=== PATIENT | male | born 1970 | race Caucasian/White ===

== ENCOUNTER 2018-06-22 12:14 | Emergency (ER) | payer MEDICARE, SELFPAY ==
[2018-06-22 12:21] VITALS: BP 132/84; PULSE 99; RESP 20; TEMP 37.3; O2SAT 97
--- NOTE | 2018-06-22 12:23 | NUR.NOTE ---
last night 1899 pt stepped into a hole anciently and rotated his ankle resulting in 10 out of 10 pain since the incident. pt has a fused ankle with several screws from a fall off a roof in 1999 pt states that he had had 4 or 5 operation on his ankle
--- NOTE | 2018-06-22 12:39 | ED.GENADUL_ITS ---
Discharge Plan Disposition Patient Disposition: HOME Condition: Stable Discharge Details Chief Complaint: Orthopedic Clinical Impression: Ankle pain Primary Care Provider: Sebastian Casey ED Provider: Siria Steel Discharge Instructions Instructions: Ankle Sprain (ED), Ankle Stirrup Splint (ED) Additional Instructions: Please return immediately to the emergency department if you develop any new or worsening symptoms or if you become otherwise concerned. It is extremely important that you make an appointment to be seen within the next 1-2 weeks by your primary care doctor in follow-up for this visit. Referrals: Sebastian Casey MD [Primary Care Provider] - Discharge Data Discharge Date/Time-TO BE ENTERED AT DEPARTURE: 06/22/18 14:34 Medical Decision Making James Michael is a 47-year-old man with history of arthritis, COPD, status post surgery to right ankle presenting to the emergency department with right ankle pain, after inverting his ankle during a mechanical fall yesterday. Exam with b/l malleoli and heel TTP of right RLE without edema or overlying skin changes. Exam/hx not c/w [place], vascular emergency, tib/fib fx. Concern for sprain vs fx of ankle, contusion vs fx of heel. Plan for ibuprofen, xray. Xray foot/ankle okay. No indication for admission/further eval at this time. Pt reports he has crutches at home and does not want crutches. Plan for ankle splint. I had a lengthy discussion with the Pt re: RTED precautions and importance of outpt f/u with PCP. Pt verbalizes understanding. Medical Records Medical records reviewed: Yes I reviewed the patient's medical records. Imaging Data Radiologic Study: Attestation: I personally reviewed and interpreted this imaging study as follows: Radiologist's impression: RIGHT ANKLE: Three views. Comparison 08/08/17. There are post surgical changes of an ankle arthrodesis. The orthopedic hardware appears stable compared to prior examinations. No acute fracture or dislocation is seen. No radiopaque foreign bodies are seen in the soft tissues. IMPRESSION: No acute fracture or dislocation in the right ankle. RIGHT FOOT: Three views. No acute fracture or dislocation is seen. Post surgical changes are seen in the right ankle which appear stable. The soft tissues are unremarkable. IMPRESSION: No acute abnormality. HPI General Mode of arrival: ambulatory . Date/Time Provider Initiated Documentation: 06/22/18 12:38 . Limitations to Documentation: no limitations . Information obtained by: patient, RN notes reviewed and old records reviewed . HPI Narrative: James Michael is a 47-year-old man with history of arthritis, COPD, status post surgery to right ankle presenting to the emergency department with right ankle pain. Patient reports that he was walking in the dark yesterday, and stepped into a shallow pothole in his driveway. He did not see the pothole, and he inverted his right ankle and fell. He reports that he has had right ankle pain since that time. He did not hit his head, did not lose consciousness, and there were no other injuries. He states that fall was mechanical, no preceding symptoms. Patient now complaining of pain to both sides of his right ankle and also some pain to his heel. He denies any pain in the lower leg or knee. Has been bearing weight since the fall but with pain. No numbness/tingling, no weakness. Denies other pain. Related Data Allergies Allergy/AdvReac Type Severity Reaction Status Date / Time cyclobenzaprine AdvReac Mild nausea Unverified 01/12/18 13:19 [Cyclobenzaprine] ibuprofen AdvReac Mild nausea Unverified 01/12/18 13:19 naproxen AdvReac Mild Nausea Unverified 01/12/18 13:19 General Stated Complaint: Orthopedic BULL: 3 Review of Systems Review of Systems Constitutional: denies fevers Eyes: denies eye pain ENT: denies facial pain, dental pain, sore throat Cardiovascular: denies chest pain, edema Respiratory: denies SOB, cough GI: denies abdominal pain, vomiting, diarrhea : denies flank pain MSK: denies back pain, neck pain, myalgias, reports right ankle pain Skin: denies rash Neuro: denies headaches, lightheadedness, weakness PFSH Arthritis Attention deficit hyperactivity disorder Chronic obstructive lung disease Tobacco dependence, continuous Surgical History Appendectomy Endoscopic Carpal Tunnel release Repair of inguinal hernia Family History Mother No problems noted. Father Personal history of malignant neoplasm Social History Smoking/Tobacco Use Status: Current-Occasional Exam Narrative Exam Narrative: Constitutional: well and [id number], pleasant, conversing normally HENT: head atraumatic, normocephalic normal inspection, mucous membranes moist Eyes: conjunctiva normal, sclera normal, pupils 3mm b/l Neck: no stridor, normal ROM, trachea midline Chest: normal inspection Resp: normal work of breathing, LCTAB Cardio: normal rate, normal rhythm, no murmur appreciated Skin: warm, dry, normal color, no rash Neuro: alert, not altered, grossly non-focal, normal tone Ext: no edema, TTP b/l malleoli right ankle, no edema, no overlying skin changes, TTP of right heel, no other TTP of right foot, no prox fib/tib TTP, Normal exam of LLE. DP pulses intact and symmetric. Psych: normal mood, normal affect, normal behavior Course Vital Signs Temperature 37.3 C 06/22/18 12:21 Pulse 99 H 06/22/18 12:21 Respiratory Rate 20 06/22/18 12:21 Blood Pressure 132/84 06/22/18 12:21 Pulse Oximetry 97 06/22/18 12:21 Temperature 37.3 C 06/22/18 12:21 Temperature Source Skin 06/22/18 12:21 Pulse 99 H 06/22/18 12:21 Respiratory Rate 20 06/22/18 12:21 Respiratory Effort 06/22/18 12:28 Blood Pressure 132/84 06/22/18 12:21 Blood Pressure Position Supine 06/22/18 12:21 Pulse Oximetry 97 06/22/18 12:21 Oxygen Delivery Method Room Air 06/22/18 12:21 Oxygen Flow Rate 0 06/22/18 12:21 Pain Level 10 06/22/18 12:21
--- NOTE | 2018-06-22 13:04 | DI.RAD_ITS ---
SYMPTOMS/DIAGNOSIS: TRAUMA, INVERSION, ZANE MALLEOLAR PAIN, HEEL PAIN RIGHT ANKLE: Three views. Comparison 08/08/17. There are post surgical changes of an ankle arthrodesis. The orthopedic hardware appears stable compared to prior examinations. No acute fracture or dislocation is seen. No radiopaque foreign bodies are seen in the soft tissues. IMPRESSION: No acute fracture or dislocation in the right ankle. RIGHT FOOT: Three views. No acute fracture or dislocation is seen. Post surgical changes are seen in the right ankle which appear stable. The soft tissues are unremarkable. IMPRESSION: No acute abnormality.
[2018-06-22 14:25] VITALS: BP 132/84; PULSE 99; RESP 20; TEMP 37.3; O2SAT 97
[2018-06-22] MEDS: Acetaminophen 500 MG TAB 1000 MG PO (14:25)
== END 2018-06-22 14:34 | disposition home or self-care (01) ==
PROVIDERS: Emergency Provider Student in an Organized Health Care Education/Training Program; PCP General Practice
DX: M25.571 Pain in right ankle and joints of right foot (principal); W17.2XXA Fall into hole, initial encounter; X50.9XXA Other and unspecified overexertion or strenuous movements or postures, initial encounter; Z98.1 Arthrodesis status; J44.9 Chronic obstructive pulmonary disease, unspecified; F17.210 Nicotine dependence, cigarettes, uncomplicated
CPT/HCPCS: 29515; 99284; 73610; 73630; 99285; L4350

== ENCOUNTER → 2018-07-27 10:59 | Outpatient (BNVA) | payer MEDICARE, SELFPAY | PROVIDERS: PCP General Practice; Referring Provider General Practice; Visit Provider Orthopaedic Surgery | DX: S90.01XA Contusion of right ankle, initial encounter (principal); W18.42XA Slipping, tripping and stumbling without falling due to stepping into hole or opening, initial encounter | CPT/HCPCS: 99214; L1902 ==

== ENCOUNTER 2018-09-21 11:32 | Emergency (ER) | payer MEDICARE, SELFPAY ==
[2018-09-21 11:36] VITALS: BP 117/75; PULSE 85; RESP 16; TEMP 36.4; O2SAT 95
--- NOTE | 2018-09-21 11:44 | ED.GENADUL_ITS ---
Discharge Plan Disposition Patient Disposition: HOME Condition: Good Discharge Details Chief Complaint: Nk/Back Pain Clinical Impression: Acute lumbar back pain, DJD (degenerative joint disease), lumbosacral Reason For Visit: low back pain Primary Care Provider: Sebastian Casey ED Provider: Giuseppe Nagel [place] Meds and New Rx's Prescriptions: New lidocaine 5 % adhesive patch,medicated 2 patch TP DAILY Qty: 15 RF: 0 methocarbamol 500 mg tablet 1,000 mg PO TID Qty: 20 RF: 0 nabumetone 500 mg tablet 500 mg PO BID Qty: 14 RF: 0 Discharge Instructions Additional Instructions: Continue to use heat and gentle stretching. Medications as directed. Lidoderm patches go on for 12 hours and off for 12 hours. Follow-up with primary care next week if not doing better. Return to ED for worsening back pain, abdominal pain, bladder or bowel dysfunction, weakness, numbness. Referrals: Sebastian Casey MD [Primary Care Provider] - Discharge Data Discharge Date/Time-TO BE ENTERED AT DEPARTURE: 09/21/18 14:26 Medical Decision Making Patient presenting with severe low back pain. There is no injury. There is no fever. He denies IV drug abuse. He is neurologically intact. He has 5 out of 5 strength in the lower extremities. He has no sensory deficit. He has no bladder or bowel dysfunction. DTRs are 1+. He is very tender along the spine unclear if paraspinal or spinal. He does not need emergent MRI but will get CT scan to evaluate for bony pathology. He does not have any true allergies to medications just nausea. He will be given Toradol, Robaxin, Lidoderm patch. CT scan was reviewed with radiologist. There is nothing acute. Degenerative change and evidence of vacuum changes at the level of L4-L5 disc space. Patient continues to have pain but it is improved. He will be discharged home with pr escription for Lidoderm patch, Robaxin, and nabumetone. Follow-up with his primary care next week. Return to the emergency department if he develops any neurologic symptomatology, bladder or bowel dysfunction, increasing pain. Medical Records Medical records reviewed: Yes I reviewed the patient's medical records. HPI General Mode of arrival: ambulatory . Date/Time Provider Initiated Documentation: 09/21/18 11:42 . Limitations to Documentation: no limitations . Information obtained by: patient . HPI Narrative: Patient presents to ED with complaint of sharp, severe low back pain radiating down both legs. He states that the pain is radiating down the front and back, all of his legs. He has no numbness, weakness, bladder or bowel problems. He denies upper back pain. He denies chest pain or shortness of breath. He denies fevers or chills. He denies IV drug use. No history of immunosuppression. He denies back problems but chart states low back pain. He has tried heat and Tylenol without relief. Hurts more to ambulate, bend, twist. No known injury. Related Data Home Medications Medication Instructions Recorded Confirmed lidocaine 2 patch TP DAILY #15 each 09/21/18 methocarbamol 1,000 mg PO TID #20 tab 09/21/18 nabumetone 500 mg PO BID #14 tab 09/21/18 Previous Rx's Medication Instructions Recorded lidocaine 2 patch TP DAILY #15 each 09/21/18 methocarbamol 1,000 mg PO TID #20 tab 09/21/18 nabumetone 500 mg PO BID #14 tab 09/21/18 Allergies Allergy/AdvReac Type Severity Reaction Status Date / Time cyclobenzaprine AdvReac Mild nausea Unverified 09/21/18 11:40 [Cyclobenzaprine] ibuprofen AdvReac Mild nausea Unverified 09/21/18 11:40 naproxen AdvReac Mild Nausea Unverified 09/21/18 11:40 General Stated Complaint: Nk/Back Pain BULL: 3 Review of Systems Constitutional Denies chills, Denies fever(s), Denies headache(s) and Denies weakness ENT Denies headache(s) and Denies neck pain Cardiovascular Denies chest pain, Denies syncope, Denies pedal edema and Denies dyspnea Respiratory Denies cough and Denies dyspnea Gastrointestinal Denies abdominal pain, Denies diarrhea, Denies nausea and Denies vomiting Genitourinary Denies genital pain, Denies dysuria, Denies flank pain, Denies urinary hesitancy and Denies urinary incontinence Musculoskeletal Reports back pain, Reports limited range of motion, Denies muscle weakness, Denies neck pain, Denies numbness and Denies tingling Integumentary/Breasts Denies rash Neurologic Denies burning sensations, Denies syncope, Denies headache(s), Denies focal weakness, Denies numbness, Denies radicular pain, Denies sensory deficit, Denies tingling, Denies paresthesias and Denies weakness PFSH Medical History Arthritis (Chronic) Attention deficit hyperactivity disorder (Chronic) Chronic obstructive lung disease (Chronic) Tobacco dependence, continuous (Chronic) Surgical History H/O ankle fusion (Chronic) Appendectomy (Inactive) Endoscopic Carpal Tunnel release (Inactive) Repair of inguinal hernia (Inactive) Family History Mother No problems noted. Father Personal history of malignant neoplasm Social History household members: none housing: apartment lives independently: Yes number of children: 1 current occupational status: disabled what type of physical activity do you participate in: bicycling and additional details: rides bike in the summer. Smoking and Tabacco status: Current-Occasional alcohol intake: current alcohol intake frequency: holidays/special occasions only substance use type: does not use Exam Const General: cooperative, uncomfortable and no acute distress Orientation: alert and oriented x3 HENOR Head: normocephalic and atraumatic Neck Neck: normal visual inspection, full ROM and supple Back/Spine/Pelvis Cervical Spine: cervical ROM normal and No pain with cervical ROM Thoracic/Lumbar Spine: thoracic and lumbar spine normal to inspection, pain with thoraco-lumbar ROM, thoraco-lumbar ROM limited, No thoracic spinal tenderness and lumbar spinal tenderness Skin Rashes: no rashes Neuro General: alert, oriented x3, no focal motor deficits and CN's II-XI intact bilaterally Cognition: normal cognition Speech: speech normal Gait: other (limps due to pain) Sensory Exam: no sensory deficits noted DTR's: Rt Patellar: 1+, Lt Patellar: 1+, Rt Ankle: 1+ and Lt Ankle: 1+ Extrem General: full ROM, no pedal edema and no calf tenderness Course Vital Signs Temperature 97.5 F L 09/21/18 11:36 Pulse 85 09/21/18 11:36 Respiratory Rate 16 09/21/18 11:36 Blood Pressure 117/75 09/21/18 11:36 Pulse Oximetry 95 09/21/18 11:36 Temperature 97.5 F L 09/21/18 11:36 Temperature Source Temporal Artery Scan 09/21/18 11:36 Pulse 85 09/21/18 11:36 Respiratory Rate 16 09/21/18 11:36 Respiratory Effort 09/21/18 11:42 Blood Pressure 117/75 09/21/18 11:36 Pulse Oximetry 95 09/21/18 11:36 Oxygen Delivery Method Room Air 09/21/18 11:36 Oxygen Flow Rate 0 09/21/18 11:36 Pain Level 10 09/21/18 11:36
--- NOTE | 2018-09-21 11:58 | DI.CT_ITS ---
SYMPTOMS/DIAGNOSIS: SEVERE LOW BACK PAIN X [address]: The study was conducted according to the usual protocol without contrast enhancement. A narrowed vacuum disc is demonstrated at L4-5 and L3-4. There is some endplate sclerosis and small localized herniations of disc material into the superior endplate of L4 and inferior endplate of L4 is demonstrated. There are apparent disc herniations at both these levels, the findings most prominent at L4-5. In addition, there are endplate declivities involving the superior endplate of L1 and L2, also consistent with small herniations. There is moderately severe facet joint DJD. The pedicles, spinous and transverse processes are well maintained. The examination is extended through the 1st sacral ala, which appears unremarkable. SUMMARY: Findings consistent with DJD and degenerative disc disease with probable disc protrusions at L4-5 and L3-4. When clinically appropriate, further assessment with an MRI is suggested.
[2018-09-21] MEDS: Ketorolac 60 MG/2 ML VIAL IM (12:34)
[2018-09-21] MEDS: Methocarbamol 500 MG TAB 1000 MG PO (12:34)
[2018-09-21] MEDS: Lidocaine 5% Patch 2 PATCH TP (12:34)
[2018-09-21 14:14] VITALS: BP 117/75; PULSE 85; RESP 16; TEMP 36.4; O2SAT 95
== END 2018-09-21 14:26 | disposition home or self-care (01) ==
PROVIDERS: Emergency Provider Emergency Medicine; PCP General Practice
DX: M54.5 Low back pain (principal); M51.87 Other intervertebral disc disorders, lumbosacral region; J44.9 Chronic obstructive pulmonary disease, unspecified; F17.210 Nicotine dependence, cigarettes, uncomplicated
CPT/HCPCS: 96372; 99284; 72131; 99283; J1885

== ENCOUNTER 2019-01-15 12:02 | Emergency (ER) | payer MEDICARE, SELFPAY ==
[2019-01-15] VITALS (43 sets, daily range): BP systolic 119–143; BP diastolic 69–88; PULSE 49–92; RESP 4–24; TEMP 36.8; O2SAT 89–98
[2019-01-15] MEDS: Dexamethasone 10 MG/ML VIAL (12:00)
[2019-01-15] MEDS: EPINEPHrine 0.3 MG KIT IM (12:09)
[2019-01-15] MEDS: EPINEPHrine for Inhalation 0.5 ML VIAL ×3 (12:10→12:24)
[2019-01-15] MEDS: Ondansetron 4 MG/2 ML VIAL (12:11)
[2019-01-15 12:13] LABS: Abs Immature Grans 0.01 k/cumm (0.0-0.09); Absolute Basophil Count 0.05 k/cumm (0.0-0.2); Absolute Eosinophil Count 0.36 k/cumm (0.0-0.7); Absolute Lymphocyte Count 3.24 k/cumm (1.2-3.4); Absolute Monocyte Count 0.74 k/cumm (0.11-0.7); Absolute Neutrophil Count 3.36 k/cumm (1.2-6.7); Basophils % 0.6; Eosinophils % 4.6; HCT 47.5 % (40.0-50.0); HGB 16.2 g/dL (13.5-17.5); Immature Grans % 0.1; Lymphocytes % 41.8; Mean Corp. HGB Concentration 34.1 g/dL (32.0-36.0); Mean Corpuscular Volume 90.8 fL (80-95); Mean Platelet Volume 10.3 fL (8.0-11.0); Monocytes % 9.5; Neutrophils % 43.4; Platelet Count 207 x1000/uL (130-400); RBC 5.23 m/cumm (4.50-6.00); RBC Distribution Width 13.3 % (11.8-14.1); White Blood Cell Count 7.76 k/cumm (4.4-10.8)
--- NOTE | 2019-01-15 12:18 | ED.GENADUL_ITS ---
Discharge Plan Disposition Patient Disposition: AGAINST MEDICAL ADVICE Condition: Improving Discharge Details Chief Complaint: SOB Clinical Impression: Uvulitis Primary Care Provider: Sebastian Casey ED Provider: Soren Tee Home Meds and New Rx's Prescriptions: New diphenhydramine HCl [Benadryl] 25 MG capsule 25 mg PO Q6H Qty: 100 RF: 0 epinephrine [EpiPen 2-Yoshi] 0.3 MG/0.3 ML auto-injector 0.3 mg IJ PRN PRNQty: 2 RF: 5 dexamethasone [Decadron] 6 mg tablet 12 mg PO ONCE Qty: 2 RF: 0 Discharge Instructions Instructions: Uvulitis (ED) Additional Instructions: At this time you are leaving against my advice and recommendation. We will be setting up an ENT follow-up for you this week, they will contact you with the appointment time. Please do not miss this appointment. Please take the repeat dose of Decadron on 01/17/2019. Please take Benadryl every 6 hours for the next 3 to 4 days. If you notice any swelling in your throat again, please take the epinephrine as directed immediately. If you notice any worsening of your symptoms, or any new symptoms such as vomiting, diarrhea, fever, chills, shortness of breath, chest pain, numbness, weakness, or fainting , please return immediately to the emergency department for reevaluation. Please follow up with your primary care provider as soon as possible for reassessment and reevaluation. As always, it was a pleasure participating in your medical care today. Referrals: Sebastian Casey MD [Primary Care Provider] - Medical Decision Making This is a 48-year-old male who presents today with difficulty swallowing and tightness in his upper throat symptoms began just a few minutes prior to arrival. He describes similar symptoms to this in the past when he had uvulitis. In route by paramedics he was given Benadryl and a breathing treatment. This had no improvement of his symptoms. Clinical exam at this time demonstrates patient that is in no acute distress, he is able to control his secretions well, he does have notably enlarged uvula, but he is able to still breathe without any stridor. Minimal wheeze in the right lower lung field. Oxygenation is stable. We will treat with racemic epinephrine, Decadron, IM epinephrine, and monitor very closely. Will get CT scan for further evaluation as well for epiglottitis in addition to uvulitis. 1:12 PM Patient has been given IM epinephrine, Decadron racemic epi, reevaluation of epiglottis demonstrates an improvement of its size. Patient states that he feels notably better for breathing now. He continues to show no signs of significant respiratory distress, or significant airway compromise. CT of the neck shows no evidence of epiglottitis and only inflammatory changes involving the uvula. No distinct abscess. The patient's notable clinical improvement, I do not think that emergent airway is at all indicated. Continues to be saturating well, and is actually sleeping comfortably now. 3:23 PM On reassessment the patient is feeling much better. Repeat evaluation of the uvula demonstrates notable decrease in swelling. Patient states that he feels great at this point would like to go home. I made it clear with the patient that my recommendation is that he stays overnight for continued observation. In spite of his improvement I still do feel that a 24-hour observation. Is reasonable. Patient understands this, but reiterates that he will not be staying overnight and will be going home. Patient is of a appropriate age to make decisions. The patient is of sound mind, appears clinically sober, and has capacity to make decisions by my clinical exam. We have provided options for treatment and discussed the risks and benefits of these options and refusing these options, including and disability specific to the patient's pathology. Patient is able to discuss the risks and benefits and alternatives of treatment and refusing treatment. We have tried to involve the patient's family or support group that was present here or by contacting them on the phone. The patient chooses to leave before evaluation and treatment is complete AGAINST MEDICAL ADVICE. Because of this we will give prescriptions for repeat Decadron in 72 hours, as well as prescription for EpiPen and recommend continued Benadryl. I made it clear to the patient that at any time he can return for reassessment reevaluation that he can reach me to discuss any concerns over the phone at any time. I again made it clear that my recommendation is for overnight observation and he understands this and will will still be following with his course of them. I have extensively reviewed the AMA treatment plan and AMA discharge instructions with the patient. I have addressed all patient concerns at this time. The patient was made aware of what symptoms to monitor for that would warrant a return to the emergency department. Discussed the plan with the patient, they demonstrate verbal understanding and agreement with our assessment and plan at this time. EKG 13: 08 Rate 60, intervals normal, sinus rhythm, no significant ST elevations or depressions, no T wave inversions, no Q waves. FINDINGS: Pulmonary arteries: Normal. No pulmonary emboli. Aorta: Unremarkable. No aortic aneurysm. No aortic dissection. Lungs: There appears to be a large right upper lobe bulla, unchanged from prior exam. There is minimal hazy dependent edema and ground glass change seen posteriorly in the lungs. Pleural space: Unremarkable. No pneumothorax. No pleural effusion. Heart: Mild cardiomegaly. Lymph nodes: Mild mediastinal adenopathy. Bones/joints: Unremarkable. No acute fracture. Soft tissues: Unremarkable. IMPRESSION: No evidence for pulmonary embolus. Large bulla again seen right apex. COMMENT: Preliminary interpretation is based on receipt of 540 image(s). A final report will be issued subsequently. Thank you for allowing us to participate in the care of your patient. Dictated and Authenticated by: Gertrudis Stephenson MD FINDINGS: Sinuses: There is moderate mucoperiosteal thickening involving the eth moid air cells. Nasopharynx: Normal. Oropharynx: There is lymphoid hyperplasia at the tongue base. Hypopharynx: Normal. Larynx: Normal. Normal epiglottis. Retropharyngeal space: Normal. Submandibular/Parotid glands: Normal. Glands are normal in size. Thyroid: Normal. No enlarged or calcified nodules. Lymph nodes: There is mild mediastinal adenopathy. Trachea: Visualized trachea is unremarkable. Lungs: Right lung bulla noted. Mastoid air cells: Partial opacification noted inferior mastoid air cells bilaterally. Bones/joints: Normal. No acute fracture. Soft tissues: Respiratory motion slightly limits the exam. The uvula is enlarged and edematous. It measures up to 11 mm in diameter. IMPRESSION: Inflammatory changes involving the uvula which is enlarged. No evidence for epiglottitis. COMMENT: Preliminary interpretation is based on receipt of 281 image(s). A final report will be issued subsequently. Thank you for allowing us to participate in the care of your patient. Dictated and Authenticated by: Gertrudis Stephenson MD [facility] General Date/Time Provider Initiated Documentation: 01/15/19 12:05 . HPI Narrative: This is a 48-year-old male with a past medical history of uvulitis, COPD, previous pulmonary embolism not currently on anticoagulation, who presents today for evaluation of difficulty swallowing and breathing. The patient states that earlier this morning he developed sudden shortness of breath, difficulty swallowing. He states that this is happened before. EMS was called, and no stridor was noted, he was given albuterol, and had what 100 mg of Benadryl IM. This caused no change in his symptoms. The patient denies any spitting or vomiting, he does admit to mild sore throat, he denies any chest pain, abdominal pain, chest heaviness, chest tightness, numbness tingling or weakness. He shortness of breath is also notably misinterpreted as it is more so of a difficulty to breathe in his neck. EMS reports normal oxygen saturations during his entire episode. No evidence of hypoxemia. Patient denies any other complaints at this time. He does state that he has had episodes of uvulitis in the past, for which she was treated with steroids, and antihistamines. Outpatient ENT follow-up had been scheduled for him but he never followed up. H e denies any other complaints at this time. No other modifying factors. He denies any new medications, lisinopril use, or history of allergies. Related Data Home Medications Medication Instructions Recorded Confirmed dexamethasone [Decadron] 12 mg PO ONCE #2 tab 01/15/19 diphenhydramine HCl [Benadryl] 25 mg PO Q6H #100 cap 01/15/19 epinephrine [Epipen 2-Yoshi] 0.3 mg IJ PRN PRN #2 auto.injct 01/15/19 Previous Rx's Medication Instructions Recorded dexamethasone [Decadron] 12 mg PO ONCE #2 tab 01/15/19 diphenhydramine HCl [Benadryl] 25 mg PO Q6H #100 cap 01/15/19 epinephrine [Epipen 2-Yoshi] 0.3 mg IJ PRN PRN #2 auto.injct 01/15/19 Allergies Allergy/AdvReac Type Severity Reaction Status Date / Time cyclobenzaprine AdvReac Mild nausea Unverified 09/21/18 11:40 [Cyclobenzaprine] ibuprofen AdvReac Mild nausea Unverified 09/21/18 11:40 naproxen AdvReac Mild Nausea Unverified 09/21/18 11:40 General Stated Complaint: SOB BULL: 2 Review of Systems Review of Systems All systems reviewed & are unremarkable except as noted in HPI and below PFSH Medical History Arthritis (Chronic) Attention deficit hyperactivity disorder (Chronic) Chronic obstructive lung disease (Chronic) Tobacco dependence, continuous (Chronic) Surgical History H/O ankle fusion (Chronic) Appendectomy (Inactive) Endoscopic Carpal Tunnel release (Inactive) Repair of inguinal hernia (Inactive) Family History Mother No problems noted. Father Personal history of malignant neoplasm Social History Smoking/Tobacco Use Status: Current-Occasional Tobacco Type: cigarettes Alcohol Intake: current Alcohol Intake frequency: holidays/special occasions only Drug use: Never Substance use type: does not use Household members: none Housing: apartment Number of Children: 1 What type of physical activity do you participate in: bicycling and additional Details: rides bike in the summer. Do you feel safe at home: Yes Do you feel safe in your relationship?: Yes Exam Narrative Exam Narrative: 1.Const: Well-nourished, Well-developed, appearing stated age 2.Eyes: PERRL, no conjunctival injection, and symmetrical lids. 3.ENT: Atraumatic external nose and ears. Moist MM. Neck: Symmetric, trachea midline, No thyromegaly. Notably enlarged uvula, no significant tonsillar enlargement, no angioedema of the tongue. Patient is tolerating his secretions well, no evidence of hypersecretion. He is able to swallow but with some difficulty and pain. No stridor or drooling. He is not in the sniffing position. 4.CVS: +S1/S2, No murmurs or gallops. Peripheral pulses 2+ and equal in all extremities. Brisk capillary refill in all extremities. 5.RESP: Unlabored respiratory effort. Minimal wheeze in the right lower lung field. No rhonchi or rales 6.GI: Soft, Nontender/Nondistended, No hepatosplenomegaly. No guarding or rebound. 7.MSK: Normocephalic/Atraumatic, Extremities w/o deformity or ttp No cyanosis or clubbing, Normal movement of all extremities 8.Skin: Warm, Dry. No rashes or lesions. 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 Sensation grossly intact, no focal neurologic deficits. 10.Psych: (AAO) x3. Appropriate mood and affect Course Vital Signs Temperature 36.8 C 01/15/19 11:57 Pulse 74 01/15/19 11:57 Respiratory Rate 18 01/15/19 11:57 Blood Pressure 126/73 01/15/19 11:57 Pulse Oximetry 96 01/15/19 11:57 Temperature 36.8 C 01/15/19 11:57 Temperature Source Temporal Artery Scan 01/15/19 11:57 Pulse 74 01/15/19 11:57 Respiratory Rate 18 01/15/19 11:57 Blood Pressure 126/73 01/15/19 11:57 Pulse Oximetry 96 01/15/19 11:57 Oxygen Delivery Method Room Air 01/15/19 11:57 Oxygen Flow Rate 0 01/15/19 11:57 Pain Level 0 01/15/19 11:57
[2019-01-15 12:32] LABS: ALT 30 U/L (12-78); AST 11 U/L (15-37); Albumin 3.3 g/dL (3.4-5.0); Alkaline Phosphatase 86 U/L (46-116); Anion Gap 8.9 mmol/L (3-11); BUN 14 mg/dL (7-18); Bilirubin, Total 0.3 mg/dL (0.2-1.0); CO2 26.1 mmol/L (21.0-32.0); Calcium 8.9 mg/dL (8.5-10.1); Chloride 104 mmol/L (98-107); Glucose 109 mg/dL (70-100); INR 0.9 (0.9-1.1); PTT Activated 22.3 sec (21.0-31.4); Potassium 4.2 mmol/L (3.5-5.1); Prothrombin Time 9.1 sec (9.3-11.0); Sodium 139 mmol/L (136-145); Total Protein 7.1 g/dL (6.4-8.2)
--- NOTE | 2019-01-15 12:45 | DI.CT_ITS ---
SYMPTOM/DIAGNOSIS: NOTABLE UVULITIS, EVAL FOR EPIGLOTTITIS CT NECK: 01/15 CT examination of the cervical region was performed following the contrast enhanced chest CT and with additional injection of 70 cc Omnipaque 350. The patient reportedly has clinically apparent edema of the uvula and this is noted on the neck CT. There is no evidence of epiglottic edema or abnormality of the area of epiglottic folds. The supraglottic region appears normal. Tracheal air column appears intact. No retropharyngeal abscess. No significant cervical adenopathy. CONCLUSION: Findings consistent with inflammation of the uvula as clinically noted. No evidence of airway compromise. No evidence of epiglottitis
--- NOTE | 2019-01-15 12:45 | DI.CT_ITS ---
SYMPTOM/DIAGNOSIS: HX OF PE, SOB, UVULITIS NOW. CHEST CTA: 01/15 CT angiography was performed with multi slice acquisition and multi planar and 3D reconstruction. CT angiography of the chest was performed with intravenous infusion of 100 cc Omnipaque 350. Images obtained through the upper abdomen show unremarkable appearance of visualized portions of liver, spleen, pancreas and adrenals. Slight prominence of superior mediastinal lymph nodes noted grossly unchanged from CT of 2016. The largest node measures about 17 x 9 mm in diameter. No evidence of pulmonary embolic disease. No thoracic aortic abnormality seen. Tracheobronchial tree appears intact. Large right apical bulla noted. Mild dependent ground glass opacities noted. Presumed COPD, mild reticular prominence noted diffusely. CONCLUSION: No evidence of pulmonary embolic disease.
[2019-01-15] MEDS: Normal Saline Flush 10 ML SYR IVP (12:56)
[2019-01-15] MEDS: Omnipaque 350 MG/ML 100 ML BTL IJ (12:56)
[2019-01-15] MEDS: Albuterol/Ipratropium 3 ML UPD VIAL (13:00)
[2019-01-15 13:04] LABS: Troponin I < 0.05 ng/mL (0.00-0.06)
--- NOTE | 2019-01-15 13:05 | DI.VRAD_ITS ---
EXAM: CT Angiography Chest With Contrast EXAM DATE/TIME: 01/15/2019 12:21 PM CLINICAL HISTORY: 48 years old, male; Other: HX of pe, SOB, uvulitis now TECHNIQUE: Imaging protocol: Axial computed tomographic angiography images of the chest with intravenous contrast using CT angiography protocol. Coronal and sagittal reformatted images were created and reviewed. 3D rendering: MIP reconstructed images were created and reviewed. Radiation optimization: All CT scans at this facility use at least one of these dose optimization techniques: automated exposure control; mA and/or kV adjustment per patient size (includes targeted exams where dose is matched to clinical indication); or iterative reconstruction. Contrast material: OMNIPAQUE 350; Contrast volume: 70 ml; Contrast route: IV; COMPARISON: CT CHEST FOR PULMONARY EMBOLUS 11/06/2015 6:24 PM FINDINGS: Pulmonary arteries: Normal. No pulmonary emboli. Aorta: Unremarkable. No aortic aneurysm. No aortic dissection. Lungs: There appears to be a large right upper lobe bulla, unchanged from prior exam. There is minimal hazy dependent edema and ground glass change seen posteriorly in the lungs. Pleural space: Unremarkable. No pneumothorax. No pleural effusion. Heart: Mild cardiomegaly. Lymph nodes: Mild mediastinal adenopathy. Bones/joints: Unremarkable. No acute fracture. Soft tissues: Unremarkable. IMPRESSION: No evidence for pulmonary embolus. Large bulla again seen right apex. COMMENT: Preliminary interpretation is based on receipt of 540 image(s). A final report will be issued subsequently. Dictated and Authenticated by: Gertrudis Stephenson MD. Ordering:DANK Doty MD
--- NOTE | 2019-01-15 13:09 | DI.VRAD_ITS ---
EXAM: CT Neck With Contrast EXAM DATE/TIME: 01/15/2019 12:07 PM CLINICAL HISTORY: 48 years old, male; Other: Notable uvulitis, eval for epiglotitis TECHNIQUE: Imaging protocol: Axial computed tomography images of the neck with intravenous contrast. Coronal and sagittal reformatted images were created and reviewed. Radiation optimization: All CT scans at this facility use at least one of these dose optimization techniques: automated exposure control; mA and/or kV adjustment per patient size (includes targeted exams where dose is matched to clinical indication); or iterative reconstruction. Contrast material: IV; Contrast volume: 100 ml; Contrast route: IV; COMPARISON: No relevant prior studies available. FINDINGS: Sinuses: There is moderate mucoperiosteal thickening involving the ethmoid air cells. Nasopharynx: Normal. Oropharynx: There is lymphoid hyperplasia at the tongue base. Hypopharynx: Normal. Larynx: Normal. Normal epiglottis. Retropharyngeal space: Normal. Submandibular/Parotid glands: Normal. Glands are normal in size. Thyroid: Normal. No enlarged or calcified nodules. Lymph nodes: There is mild mediastinal adenopathy. Trachea: Visualized trachea is unremarkable. Lungs: Right lung bulla noted. Mastoid air cells: Partial opacification noted inferior mastoid air cells bilaterally. Bones/joints: Normal. No acute fracture. Soft tissues: Respiratory motion slightly limits the exam. The uvula is enlarged and edematous. It measures up to 11 mm in diameter. IMPRESSION: Inflammatory changes involving the uvula which is enlarged. No evidence for epiglottitis. COMMENT: Preliminary interpretation is based on receipt of 281 image(s). A final report will be issued subsequently. Dictated and Authenticated by: Gertrudis Stephenson MD. Ordering:DANK Doty MD
--- NOTE | 2019-01-16 19:03 | NUR.NOTE ---
Nursing Note: Referral was faxed to ENT today for follow up. Yasmin Huertas.
== END 2019-01-15 15:40 | disposition left against medical advice (07) ==
PROVIDERS: Emergency Provider Student in an Organized Health Care Education/Training Program; PCP General Practice
DX: K11.3 Abscess of salivary gland (principal); J44.9 Chronic obstructive pulmonary disease, unspecified; F17.210 Nicotine dependence, cigarettes, uncomplicated
CPT/HCPCS: 36415; 70491; 71275; 80053; 93005; 94640; 96372; 99285; 84484; 85025; 85610; 85730; 93010; J0171; J1100; J2405; J3490; J7620

== ENCOUNTER 2019-02-25 18:51 | Emergency (ER) | payer MEDICARE, SELFPAY ==
--- NOTE | 2019-02-25 18:55 | NUR.NOTE ---
Nursing Note: pt has had progressively worse wrist pain for the past week pt states precipitating injury however PT does have a history of wrist pain post falling off a roof and having surgery on right wrist in 1999
[2019-02-25 18:56] VITALS: BP 138/82; PULSE 86; RESP 16; TEMP 36.6; O2SAT 96
--- NOTE | 2019-02-25 19:10 | DI.COMBO_ITS ---
SYMPTOM/DIAGNOSIS: PAIN, R/O ACUTE FRACTURE RIGHT WRIST, RIGHT HAND: 02/25 Three views of the wrist and 3 views of the hand were obtained. There is an ossicle of the ulnar styloid which may represent an old fracture or accessory ossification center. There is tiny fragment of calcific or ossific material adjacent to the radial styloid, avulsion not entirely excluded. Please correlate clinically regarding the site of the patient's injury and if clinically indicated additional evaluation with CT or MR may be considered.
--- NOTE | 2019-02-25 19:12 | ED.GENADUL_ITS ---
Discharge Plan Disposition Patient Disposition: HOME Condition: Stable Discharge Details Chief Complaint: Orthopedic Clinical Impression: Pain in right wrist Primary Care Provider: Sebastian Casey ED Provider: Shirley Benitez Home Meds and New Rx's Prescriptions: New prednisone 20 mg tablet See Rx Instructions .ROUTE .COMPLEX Qty: 12 RF: 0 Continued epinephrine [EpiPen 2-Yoshi] 0.3 MG/0.3 ML auto-injector 0.3 mg IJ PRN PRNQty: 2 RF: 5 Discharge Instructions Instructions: SUSPECTED FRACTURE (ED), Swollen Joint (ED) Additional Instructions: Rest ice and elevate your right wrist as much as possible. Take the oxycodone as needed and directed for pain. Take the steroids as directed until finished. Call orthopedics on Wednesday to schedule a follow-up appointment for reevaluation and for referral for MRI if indicated. Return to the emergency department if you develop any worsening or new concerning symptoms. Referrals: Murray Farrell MD [ [facility] STAFF PHYSICIAN] - Discharge Data Discharge Date/Time-TO BE ENTERED AT DEPARTURE: 02/25/19 20:20 Discharge Physician: Shirley Benitez Medical Decision Making 48-year-old male who presents with right wrist pain for the past week. Denies known injury. He has a history of previous right wrist surgery. Hemodynamically stable. Appears nontoxic. There is pain with range of motion to right wrist with surrounding edema and tenderness. No evidence of infection or trauma. Neurovascularly intact. No deformity. Does not appear consistent with septic joint. Differential diagnosis includes sprain, gout, fracture, inflammatory arthritis. X-ray notes possible tiny calcific structure near distal radius measuring 3 mm which could be a small avulsed fragment. Recommend consider MRI for further evaluation. This finding was not noted on the hand x-ray which was read as negative for acute findings. As patient has significant pain, will place a wrist splint. Patient placed on orthopedic follow-up list for evaluation. Suspect patient's pain could also be from an inflammatory process and will send home with a prescription for steroids. Patient states he cannot take Tylenol or Motrin due to significant nausea and GI upset. If this is a possible fracture, will send home with 2 doses of oxycodone. Patient advised to call orthopedics tomorrow morning and to return here anytime if worse. Medical Records Medical records reviewed: Yes I reviewed the patient's medical records. Imaging Data Radiologic Study: Radiologist's impression: XR Right Wrist EXAM DATE/TIME: 02/25/2019 7:12 PM CLINICAL HISTORY: 48 years old, male; Other: Pain, R/O acute fracture TECHNIQUE: Surgery I was told that I get a caught like 750 but Imaging protocol: XR Right wrist. Views: 3 or more views. 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 Soft tissues: Tiny calcific structure adjacent to the distal radius measuring 3 mm. This could represent a small avulsed fracture fragment. Consider MRI for further evaluation. IMPRESSION: 1. Tiny calcific structure adjacent to the distal radius measuring 3 mm. This could represent a small avulsed fracture fragment. Consider MRI for further evaluation. 2. This was not well visualized on the hand x-ray of the same day. XR Right Hand EXAM DATE/TIME: 02/25/2019 7:12 PM CLINICAL HISTORY: 48 years old, male; Other: Pain, R/O acute fracture TECHNIQUE: Imaging protocol: XR Right hand. Views: 3 or more views. 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 No acute fracture or dislocation. Soft tissues: Normal. 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 No acute fracture or dislocation. HPI General Mode of arrival: ambulatory . Date/Time Provider Initiated Documentation: 02/25/19 19:04 . Limitations to Documentation: no limitations . Information obtained by: patient . HPI Narrative: Pt is a 48yo M w/ a h/o previous wrist surgery who presents to the ED w/ a c/o R wrist pain for the past week. He denies any known injury. States the pain is worse with movement. He denies fever. Related Data Home Medications Medication Instructions Recorded Confirmed epinephrine [EpiPen 2-Yoshi] 0.3 mg IJ PRN PRN #2 auto.injct 01/15/19 02/25/19 prednisone See Rx Instructions .ROUTE 02/25/19 .COMPLEX #12 tab Previous Rx's Medication Instructions Recorded epinephrine [EpiPen 2-Yoshi] 0.3 mg IJ PRN PRN #2 auto.injct 01/15/19 prednisone See Rx Instructions .ROUTE 02/25/19 .COMPLEX #12 tab Allergies Allergy/AdvReac Type Severity Reaction Status Date / Time cyclobenzaprine AdvReac Mild nausea Unverified 09/21/18 11:40 [Cyclobenzaprine] ibuprofen AdvReac Mild nausea Unverified 09/21/18 11:40 naproxen AdvReac Mild Nausea Unverified 09/21/18 11:40 General Stated Complaint: Orthopedic BULL: 4 Review of Systems Review of Systems All systems reviewed & are unremarkable except as noted in HPI and below Constitutional Reports as per HPI, Denies chills and Denies fever(s) Eyes Denies blurry vision ENT Denies dizziness, Denies sore throat and Denies throat swelling Cardiovascular Denies chest pain and Denies dyspnea Respiratory Denies cough and Denies dyspnea Gastrointestinal Denies abdominal pain, Denies diarrhea and Denies vomiting Genitourinary Denies hematuria and Denies dysuria Musculoskeletal Denies back pain and Denies numbness Comments: Right wrist pain Integumentary/Breasts Denies lesions and Denies rash Neurologic Denies dizziness, Denies focal weakness and Denies numbness Allergic/Immunologic Denies throat swelling [facility] Medical History Arthritis (Chronic) Attention deficit hyperactivity disorder (Chronic) Chronic obstructive lung disease (Chronic) Tobacco dependence, continuous (Chronic) Surgical History Appendectomy (Inactive) Endoscopic Carpal Tunnel release (Inactive) H/O ankle fusion (Chronic) Repair of inguinal hernia (Inactive) Family History Mother No problems noted. Father Personal history of malignant neoplasm Social History Smoking/Tobacco Use Status: Current-Occasional Tobacco Type: cigarettes Alcohol Intake: current Alcohol Intake frequency: holidays/special occasions only Drug use: Never Substance use type: does not use Household members: none Housing: apartment Number of Children: 1 What type of physical activity do you participate in: bicycling and additional Details: rides bike in the summer. Do you feel safe at home: Yes Do you feel safe in your relationship?: Yes Exam Const General: cooperative, healthy appearing and no acute distress HENMT Head: normal to inspection Mouth: oral mucosae normal Eyes General: appearance normal, both eyes and all related structures Neck Neck: normal visual inspection Resp Effort & Inspection: normal respiratory effort and able to speak in complete sentences Cardio Rate: regular rate Skin General skin exam: no rashes or lesions noted Neuro General: alert, awake and oriented x3 Motor: muscle tone normal throughout Extrem Other: Tenderness to palpation circumferentially around wrist with minimal surrounding edema. No ecchymosis or erythema noted. Right radial pulse intact. Painful range of motion at right wrist. Psych Appearance: grossly normal Affect: normal affect Course Vital Signs Temperature 97.9 F 02/25/19 18:56 Pulse 86 02/25/19 18:56 Respiratory Rate 16 02/25/19 18:56 Blood Pressure 138/82 02/25/19 18:56 Pulse Oximetry 96 02/25/19 18:56 Temperature 97.9 F 02/25/19 18:56 Temperature Source Skin 02/25/19 18:56 Pulse 86 02/25/19 18:56 Respiratory Rate 16 02/25/19 18:56 Respiratory Effort 02/25/19 18:58 Blood Pressure 138/82 02/25/19 18:56 Blood Pressure Position Sitting 02/25/19 18:56 Pulse Oximetry 96 02/25/19 18:56 Oxygen Delivery Method Room Air 02/25/19 18:56 Oxygen Flow Rate 0 02/25/19 18:56 Pain Level 8 02/25/19 18:56
--- NOTE | 2019-02-25 19:28 | DI.VRAD_ITS ---
EXAM: XR Right Hand EXAM DATE/TIME: 02/25/2019 7:12 PM CLINICAL HISTORY: 48 years old, male; Other: Pain, R/O acute fracture TECHNIQUE: Imaging protocol: XR Right hand. Views: 3 or more views. 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 No acute fracture or dislocation. Soft tissues: Normal. 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 No acute fracture or dislocation. Dictated and Authenticated by: Juan Cabezas MD. Ordering:MITZY Wtason MD
--- NOTE | 2019-02-25 19:29 | DI.VRAD_ITS ---
EXAM: XR Right Wrist EXAM DATE/TIME: 02/25/2019 7:12 PM CLINICAL HISTORY: 48 years old, male; Other: Pain, R/O acute fracture TECHNIQUE: Imaging protocol: XR Right wrist. Views: 3 or more views. 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 Soft tissues: Tiny calcific structure adjacent to the distal radius measuring 3 mm. This could represent a small avulsed fracture fragment. Consider MRI for further evaluation. IMPRESSION: 1. Tiny calcific structure adjacent to the distal radius measuring 3 mm. This could represent a small avulsed fracture fragment. Consider MRI for further evaluation. 2. This was not well visualized on the hand x-ray of the same day. Dictated and Authenticated by: Juan Cabezas MD. Ordering:MITZY Watson MD
[2019-02-25] MEDS: oxyCODONE 5 MG TAB 10 MG PO (20:11)
[2019-02-25 20:24] VITALS: BP 138/82; PULSE 86; RESP 16; TEMP 36.6; O2SAT 96
== END 2019-02-25 20:20 | disposition home or self-care (01) ==
PROVIDERS: Emergency Provider Physician Assistant; PCP General Practice
DX: M25.531 Pain in right wrist (principal); R93.7 Abnormal findings on diagnostic imaging of other parts of musculoskeletal system; J44.9 Chronic obstructive pulmonary disease, unspecified; F17.210 Nicotine dependence, cigarettes, uncomplicated
CPT/HCPCS: 99284; 73110; 73130; L3908

== ENCOUNTER → 2019-03-07 08:39 | Outpatient (BNVA) | payer MEDICARE, SELFPAY | PROVIDERS: PCP General Practice; Referring Provider General Practice; Visit Provider Orthopaedic Surgery | DX: M25.531 Pain in right wrist (principal) | CPT/HCPCS: 99213; 99214; L3908 ==

== ENCOUNTER → 2019-03-07 09:15 | Outpatient (CLI) | payer MEDICARE, SELFPAY ==
[2019-03-07 10:02] LABS: Abs Immature Grans 0.01 k/cumm (0.0-0.09); Absolute Basophil Count 0.06 k/cumm (0.0-0.2); Absolute Eosinophil Count 0.48 k/cumm (0.0-0.7); Absolute Lymphocyte Count 2.55 k/cumm (1.2-3.4); Absolute Monocyte Count 0.71 k/cumm (0.11-0.7); Absolute Neutrophil Count 3.82 k/cumm (1.2-6.7); Basophils % 0.8; Eosinophils % 6.3; HCT 47.1 % (40.0-50.0); HGB 15.7 g/dL (13.5-17.5); Immature Grans % 0.1; Lymphocytes % 33.4; Mean Corp. HGB Concentration 33.3 g/dL (32.0-36.0); Mean Corpuscular Hemoglobin 30.8 pg (27.0-33.0); Mean Corpuscular Volume 92.5 fL (80-95); Mean Platelet Volume 10.4 fL (8.0-11.0); Monocytes % 9.3; Neutrophils % 50.1; Platelet Count 232 x1000/uL (130-400); RBC 5.09 m/cumm (4.50-6.00); RBC Distribution Width 13.4 % (11.8-14.1); White Blood Cell Count 7.63 k/cumm (4.4-10.8)
[2019-03-07 10:24] LABS: C-Reactive Protein 0.08 mg/dL (0.0-0.3); Uric Acid 4.8 mg/dL (3.5-7.2)
[2019-03-07 11:10] LABS: ESR 10 mm/hr (0-15)
== END ==
PROVIDERS: PCP General Practice; Visit Provider Orthopaedic Surgery
DX: M25.531 Pain in right wrist (principal)
CPT/HCPCS: 36415; 85652; 99213; 84550; 85025; 86140; L3908

== ENCOUNTER 2019-06-21 16:19 | Emergency (ER) | payer MEDICARE, SELFPAY ==
[2019-06-21 16:27] VITALS: BP 129/81; PULSE 92; TEMP 36.8; O2SAT 96
--- NOTE | 2019-06-21 16:50 | ED.GENADUL_ITS ---
Discharge Plan Disposition Patient Disposition: HOME Condition: Improving Discharge Details Chief Complaint: Nk/Back Pain Clinical Impression: Back pain Primary Care Provider: Sebastian Casey ED Provider: Risa Rojas Home Meds and New Rx's Prescriptions: New diazepam [Valium] 5 mg tablet 5 mg PO TID PRN (Reason: muscle spasm) Qty: 6 RF: 0 methylprednisolone [Medrol (Yoshi)] 4 mg tablets,dose pack See Rx Instructions .ROUTE .COMPLEX Qty: 21 RF: 0 Continued epinephrine [EpiPen 2-Yoshi] 0.3 MG/0.3 ML auto-injector 0.3 mg IJ PRN PRNQty: 2 RF: 5 Discharge Instructions Instructions: Back Pain (ED) Additional Instructions: Review information provided regarding back pain. Use [id number] lidocaine pain patches, 4%. Rest activities as tolerated. Avoid deep bending or heavy lifting. Drink plenty of fluids. Tylenol for discomfort [id number] if needed. Valium as prescribed only for severe spasm, this will cause drowsiness, do not drive, drink, work while taking this medication. Medrol Dosepak as prescribed. Recheck with primary care doctor for reevaluation in the next 3 to 5 days. Follow-up with outpatient physical therapy, referral was provided Return to the emergency room for any alarming symptoms, worsening or concerns sooner if needed. Stand Alone Forms: Physical Therapy Referral Discharge Data Discharge Date/Time-TO BE ENTERED AT DEPARTURE: 06/21/19 19:08 Medical Decision Making This is a 48-year-old patient who presents for complaints of back pain for the last 3 days with mild radiation to bilateral thighs. Patient does report a history of back pain, has had several episodes in the past. 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 Patient does have a right ankle fusion but denies any weakness or changes in gait. Patient reports that pain is bothersome. Has tried no vdbm-eak-igkppik medications. Patient denies fever, chills, nausea, vomiting. Patient denies any ill feeling. Patient does not appear toxic. Patient denies history of IV drug use. Denies malaise. Patient does report back pain in the past in a similar location however patient reports pain is more significant than gluconate typical. Patient denies history of radiating pain in the past but denies any accompanying weakness. X-rays ordered of patient's spine. Ordered Toradol as well as Valium for pain relief. Patient is not driving Patient's x-ray reveals multilevel degenerative changes of the thoracic spine, mild multilevel degenerative changes of the lumbar spine most pronounced at L4- L5 and L5-S1 where there is likely bony neural foraminal stenosis. Patient reports he is feeling improved after receiving medications. Patient reports no persistent radiating symptoms at this time. Patient does report mild back pain persists. Patient would like a prescription of Valium, encouraged pmdn-[id number] pain patches. Encourage physical therapy which patient consents to. Will give prescription for Medrol Dosepak. Patient agrees with plan of care. Encourage close follow-up with primary care doctor. The patient was stable and requested discharge. Prior to discharge, my usual and customary return precautions were reviewed with the patient - this included follow-up instructions and reasons to return to the Emergency Department if conditions worsens, does not improve as expected, or other new concerns arise. HPI General Date/Time Provider Initiated Documentation: 06/21/19 16:34 . HPI Narrative: This a 48-year-old gentleman who presents to the emergency room this evening for back pain. Patient reports 3 days of back pain which began on Wednesday after working. Patient reports lower back pain predominantly with radiation into both thighs. Patient denies groin involvement. Patient denies specific injury or trauma. Patient reports he worked at a shop with no significant heavy lifting then catered and was carrying and moving things around but no significant heavy weight or obvious injury which preceded pain. Patient does report a history of back pain in the past. Patient does report this is similar location however sharper and stronger pain. Patient reports radiating pain into the thighs is a new symptom. Patient denies numbness, tingling or weakness. Patient of note has a fused right ankle multiple surgeries on the right leg which limit his distal range of motion as a baseline. Patient denies any fevers, chills, nausea, vomiting. No ill feeling. Denies any history of IV drug use. Patient reports moving bowels normally urinating normally. Denies any abdominal pain. Has tried no medications today. No other concerns or complaints at this time Related Data Home Medications Medication Instructions Recorded Confirmed epinephrine [EpiPen 2-Yoshi] 0.3 mg IJ PRN PRN #2 auto.injct 01/15/19 06/21/19 diazepam [Valium] 5 mg PO TID PRN #6 tab 06/21/19 methylprednisolone [Medrol (Yoshi)] See Rx Instructions .ROUTE 06/21/19 .COMPLEX #21 dose pk Previous Rx's Medication Instructions Recorded epinephrine [EpiPen 2-Yoshi] 0.3 mg IJ PRN PRN #2 auto.injct 01/15/19 diazepam [Valium] 5 mg PO TID PRN #6 tab 06/21/19 methylprednisolone [Medrol (Yoshi)] See Rx Instructions .ROUTE 06/21/19 .COMPLEX #21 dose pk Allergies Allergy/AdvReac Type Severity Reaction Status Date / Time cyclobenzaprine AdvReac Mild nausea Unverified 06/21/19 16:31 [Cyclobenzaprine] ibuprofen AdvReac Mild nausea Unverified 06/21/19 16:31 naproxen AdvReac Mild Nausea Unverified 06/21/19 16:31 General Stated Complaint: Nk/Back Pain BULL: 4 Review of Systems All systems reviewed & are unremarkable except as noted in HPI and below Constitutional Constitutional: Denies chills, Denies fatigue, Denies fever(s), Denies headache(s) and Denies malaise ENT Ears, Nose, Mouth, and Throat: Denies headache(s) and Denies neck pain Respiratory Respiratory: Denies cough Gastrointestinal Gastrointestinal: Denies abdominal pain, Denies diarrhea, Denies nausea and Denies vomiting Genitourinary Genitourinary: Denies genital pain, Denies dysuria, Denies testicular pain, Denies urinary frequency and Denies urinary urgency Musculoskeletal Musculoskeletal: Reports back pain, Denies neck pain, Denies numbness, Reports radiating pain into limb and Denies tingling Neurologic Neurologic: Denies headache(s), Denies numbness and Denies tingling Endocrine Endocrine: Denies fatigue [facility] Medical History Arthritis (Chronic) Attention deficit hyperactivity disorder (Chronic) Chronic obstructive lung disease (Chronic) Tobacco dependence, continuous (Chronic) Social History Smoking/Tobacco Use Status: Current-Occasional Tobacco Type: cigarettes Alcohol Intake: current Alcohol Intake frequency: holidays/special occasions only Drug use: Never Substance use type: does not use Household members: none Housing: apartment Number of Children: 1 What type of physical activity do you participate in: bicycling and additional Details: rides bike in the summer. Do you feel safe at home: Yes Do you feel safe in your relationship?: Yes Exam Narrative Exam Narrative: CONST: Healthy appearing patient, in no acute distress. Well hydrated. Alert and alert. NECK: Normal visual inspection. FROM. Trachea midline. No Midline tenderness. CHEST: Normal insepection of the chest. RESP: Normal respiratory effort. Speaking full sentences. No cough. No audible wheezing. No retractions. Breath sounds equal and full bilaterally. No wheezing, rhonchi or rales. CARDIO: No JVD. No murmurs, rubs or gallops. MUSCULOSKELETAL: Normal Gait. FROM of all extremities. Patient with no pain in the cervical spine. Distal thoracic and lumbar spine tenderness noted in the midline. No obvious step-offs. Left lumbar paraspinal tenderness is noted. No rashes. No CVA tenderness bilaterally. Straight leg raise with pain more predominant on the right compared to the left however bilateral pain with straight leg raise. DTRs are intact at the patella. Right ankle is fused however patient does have notable effort with great toe when trying to dorsiflex. No foot drop present. Sensation intact and equal bilaterally SKIN: Normal. Dry. No rashes. NEURO: Alert and awake. Speech clear. PSYCH: Normal affect. Cooperative. Course Vital Signs Vital signs: Vital Signs Temperature 36.8 C 06/21/19 16:27 Pulse 92 H 06/21/19 16:27 Blood Pressure 129/81 06/21/19 16:27 Pulse Oximetry 96 06/21/19 16:27 Temperature 36.8 C 06/21/19 16:27 Temperature Source Skin 06/21/19 16:27 Pulse 92 H 06/21/19 16:27 Respiratory Effort 06/21/19 16:30 Blood Pressure 129/81 06/21/19 16:27 Blood Pressure Position Sitting 06/21/19 16:27 Pulse Oximetry 96 06/21/19 16:27 Oxygen Delivery Method Room Air 06/21/19 16:27 Oxygen Flow Rate 0 12/11/19 16:27 Pain Level 10 06/21/19 16:35
[2019-06-21] MEDS: Ketorolac 15 MG/ML VIAL IVP (17:06)
[2019-06-21] MEDS: diazePAM 5 MG TAB PO (17:06)
--- NOTE | 2019-06-21 17:45 | DI.RAD_ITS ---
EXAM: XR THORACIC SPINE COMPLETE INDICATION: pain. COMPARISON: No exams were available for comparison TECHNIQUE: 2D digital imaging was performed. FINDINGS: The technique is some somewhat suboptimal. There is no gross evidence of a compression fracture. D egenerative disc changes are seen. IMPRESSION: No gross evidence of an acute compression fracture.
--- NOTE | 2019-06-21 17:55 | DI.RAD_ITS ---
EXAM: XR LUMBAR SPINE COMPLETE INDICATION: pain. COMPARISON: LUMBAR SPINE COMPLETE from 04/09/2010 TECHNIQUE: 2D digital imaging was performed. FINDINGS: The vertebral bodies are well maintained in height. Endplate osteophytes and Schmorl's nodes are not ed at multiple levels. No scoliosis, spondylolysis or spondylolisthesis is seen. There is mild disc space narrowing. Facet degenerative changes are present from L3-4 through L5-S1. IMPRESSION: Degenerative changes greatest in the lower lumbar spine.
--- NOTE | 2019-06-21 18:08 | DI.VRAD_ITS ---
PROCEDURE INFORMATION: Exam: XR Lumbosacral Spine, 4 or 5 Views Exam date and time: 06/21/2019 4:50 PM Age: 48 years old Clinical history: Patient HX: Low back pain, no radiating pain. No trauma TECHNIQUE: Imaging protocol: XR of the lumbosacral spine, 4 or 5 views. COMPARISON: CR LUMBAR SPINE AP, LAT 02/15/2016 10:08 AM FINDINGS: Vertebrae: 5 non rib-bearing lumbar type vertebral bodies. Vertebral body heights are maintained and normal in alignment. Mild multilevel degenerative changes of the lumbar spine with endplate irregularity, osteophytosis and facet arthropathy. Findings are most pronounced at L4-L5 and L5-S1 where there is likely bony neural foraminal stenosis. Soft tissues: Normal. IMPRESSION: Mild multilevel degenerative changes of the lumbar spine, most pronounced at L4-L5 and L5-S1 where there is likely bony neural foraminal stenosis. Dictated and Authenticated by: Bryan Ferrara MD. Ordering:LIANNE Lord MD
--- NOTE | 2019-06-21 18:10 | DI.VRAD_ITS ---
PROCEDURE INFORMATION: Exam: XR Thoracic Spine, 3 Views Exam date and time: 06/21/2019 5:47 PM Age: 48 years old Clinical history: Pain in thoracic spine; Without myelpathy or radiculopathy; Patient HX: Mid and lower back pain. No trauma TECHNIQUE: Imaging protocol: XR of the thoracic spine, 3 views. COMPARISON: MRI - THORACIC SPINE WO CONT 03/24/2016 3:12 PM FINDINGS: Vertebrae: Visualized cervical and thoracic vertebral body heights are maintained and in normal alignment. Mild multilevel degenerative osteophytosis and mild endplate irregularity in the lower thoracic spine. Soft tissues: Normal. IMPRESSION: Mild multilevel degenerative changes of the thoracic spine as described above. Dictated and Authenticated by: Bryan Ferrara MD. Ordering:LIANNE Lord MD
== END 2019-06-21 19:08 | disposition home or self-care (01) ==
PROVIDERS: Emergency Provider Physician Assistant; PCP General Practice
DX: M54.5 Low back pain (principal); M54.6 Pain in thoracic spine
CPT/HCPCS: 96374; 99285; 72072; 72110; J1885

== ENCOUNTER 2019-08-21 13:45 | Outpatient (CLI) | payer MEDICARE, SELFPAY ==
[2019-08-22 13:26] LABS: SS-A Antibody 2.8 Units (<20.0)
[2019-08-22 13:31] LABS: SS-B (La) Ab, IgG 4.2 Units (<20.0)
== END 2019-08-21 14:05 ==
PROVIDERS: PCP General Practice; Visit Provider Otolaryngology Otolaryngology/Facial Plastic Surgery
DX: R13.19 Other dysphagia (principal); R68.2 Dry mouth, unspecified; Z72.0 Tobacco use
CPT/HCPCS: 36415; 86235

== ENCOUNTER 2020-01-25 07:25 | Emergency (ER) | payer MEDICARE, SELFPAY ==
[2020-01-25 07:28] VITALS: BP 123/82; PULSE 88; RESP 16; TEMP 36.7; O2SAT 98
--- NOTE | 2020-01-25 08:02 | ED.GENADUL_ITS ---
Discharge Plan Disposition Patient Disposition: HOME Condition: Stable Discharge Details Chief Complaint: Allergic Clinical Impression: Allergic reaction to hymenoptera venom Primary Care Provider: None,None ED Provider: Delio Lopez Home Meds and New Rx's Prescriptions: New prednisone 20 mg tablet 40 mg PO DAILY 3 Days Qty: 6 RF: 0 epinephrine 0.3 mg/0.3 mL auto-injector 0.3 mg IM ONCE Qty: 1 RF: 0 loratadine [Claritin] 10 mg tablet 10 mg PO DAILY Qty: 5 RF: 0 No Action epinephrine [EpiPen 2-Yoshi] 0.3 MG/0.3 ML auto-injector 0.3 mg IJ PRN PRNQty: 2 RF: 5 Discharge Instructions Instructions: General Allergic Reaction (ED) Additional Instructions: May continue topical applications of baking soda or calamine lotion, soak in the cool bath or with cold washcloth. Please take medications as prescribed. You may also use Benadryl 25 to 50 mg, particularly at bedtime as needed for itching. We will ask care management to arrange an outpatient follow-up for you to reestablish primary care. Medical Decision Making 49-year-old male with hymenoptera envenomation x3 to both upper arms and neck. No systemic signs or symptoms of anaphylaxis. Primarily here for discomfort and pruritus. I do feel benefit from strong anti-inflammatory effects of a short burst of prednisone and more aggressive antihistamine therapy. Discussed with him home management and indications to seek reevaluation. Do not feel he requires an EpiPen at this time. He previously followed with Dr. Casey and is now seeking new primary care which we will ask care management to arrange. HPI General Mode of arrival: ambulatory . Date/Time Provider Initiated Documentation: 01/25/20 07:28 . Limitations to Documentation: no limitations . Information obtained by: patient . History of Present Illness 49 year old M presents to the emergency department with the chief complaint of Stung by wasp/hornet yesterday on both arms and neck, described as moderate, Quality is described as burning, dull and constant, and is localized to the neck, left, right and upper extremity. Patient reports no radiation. Patient started experiencing this hour(s) and it has been constant. No relieving fa ctors improve symptom(s), No exacerbating factors reported . Patient did receive the following treatments prior to arrival, other (Topical baking soda) Related Data Home Medications Medication Instructions Recorded Confirmed epinephrine [EpiPen 2-Yoshi] 0.3 mg IJ PRN PRN #2 auto.injct 01/15/19 01/25/20 epinephrine 0.3 mg IM ONCE #1 each 01/25/20 loratadine [Claritin] 10 mg PO DAILY #5 tab 01/25/20 prednisone 40 mg PO DAILY 3 Days #6 tab 01/25/20 Previous Rx's Medication Instructions Recorded epinephrine [EpiPen 2-Yoshi] 0.3 mg IJ PRN PRN #2 auto.injct 01/15/19 epinephrine 0.3 mg IM ONCE #1 each 01/25/20 loratadine [Claritin] 10 mg PO DAILY #5 tab 01/25/20 prednisone 40 mg PO DAILY 3 Days #6 tab 01/25/20 Allergies Allergy/AdvReac Type Severity Reaction Status Date / Time cyclobenzaprine AdvReac Mild nausea Unverified 01/25/20 07:34 [Cyclobenzaprine] ibuprofen AdvReac Mild nausea Unverified 01/25/20 07:34 naproxen AdvReac Mild Nausea Unverified 01/25/20 07:34 General Stated Complaint: Allergic BULL: 4 Review of Systems Narrative: No change to voice or swallowing, no difficulty breathing. No hives. Positive itching. Continues to smoke. No recent illness. 8 systems reviewed and otherwise negative [facility] Medical History Arthritis (Chronic) Attention deficit hyperactivity disorder (Chronic) Chronic obstructive lung disease (Chronic) Tobacco dependence, continuous (Chronic) Family History Mother No problems noted. Father Personal history of malignant neoplasm Liver CA Social History Smoking/Tobacco Use Status: Current-Occasional Tobacco Type: cigarettes Alcohol Intake: current Alcohol Intake frequency: holidays/special occasions only Drug use: Never Substance use type: does not use Household members: none Housing: apartment Number of Children: 1 What type of physical activity do you participate in: bicycling and additional Details: rides bike in the summer. Do you feel safe at home: Yes Do you feel safe in your relationship?: Yes Exam Narrative Exam Narrative: GEN: awake, alert, oriented 3. Pleasant, well groomed, interactive. HEAD: Normocephalic, atraumatic ENT: Mucous membranes moist, oropharynx unremarkable, External ear exam unremarkable, symmetric palate elevation EYES: PERRL, EOMI NECK: Full ROM, no LYNDA, no menigismus. Right lateral neck with area approximately 2 x 5 cm of blanching erythema with central area of likely envenomation CHEST/RESP: Nontender, clear to auscultation bilateral, no wheeze/rhonchi/rales CARDIOVASCULAR: RRR, no murmur, rub marybeth. 2+ Rad pulse bilateral ABDOMEN: Soft, nontender, no mass. +Bowel sounds EXT: Full ROM, left upper extremity with dorsal proximal forearm area of erythema with area of central probable envenomation, right forearm with similar. No lymphedema. Freely mobile joints. Neuro: Grossly normal neurologic exam, conversant, interactive. Psych: Speech fluent, thoughts congruent, affect normal Course Vital Signs Vital signs: Vital Signs Temperature 36.7 C 01/25/20 07:28 Pulse 88 01/25/20 07:28 Respiratory Rate 16 01/25/20 07:28 Blood Pressure 123/82 01/25/20 07:28 Pulse Oximetry 98 01/25/20 07:28 Temperature 36.7 C 01/25/20 07:28 Temperature Source Temporal Artery Scan 01/25/20 07:28 Pulse 88 01/25/20 07:28 Respiratory Rate 16 01/25/20 07:28 Respiratory Effort Non-Labored 01/25/20 07:34 Respiratory Pattern Normal 01/25/20 07:34 Blood Pressure 123/82 01/25/20 07:28 Blood Pressure Position Sitting 01/25/20 07:28 Pulse Oximetry 98 01/25/20 07:28 Oxygen Delivery Method Room Air 01/25/20 07:28 Oxygen Flow Rate 0 01/25/20 07:28 Pain Level 9 01/25/20 07:28
[2020-01-25] MEDS: Loratidine 10 MG TAB PO ×2 (08:08)
[2020-01-25] MEDS: predniSONE 40 MG, predniSONE 10 MG 50 MG PO (08:08)
[2020-01-25] MEDS: diphenhydrAMINE 25 MG CAP PO (08:09)
--- NOTE | 2020-02-12 14:56 | CMPROGNOTE_ITS ---
- If Service Date Differs Date of service: 01/26/20 Time of Service: 14:56 Care Management Progress Note At the request of ED provider, CM coordinated a referral to [facility], of [facility] to assist patient in establishing care with a local PCP.
== END 2020-01-25 08:20 | disposition home or self-care (01) ==
PROVIDERS: Emergency Provider Emergency Medicine
DX: T63.451A Toxic effect of venom of hornets, accidental (unintentional), initial encounter (principal); L29.9 Pruritus, unspecified; L53.9 Erythematous condition, unspecified; J44.9 Chronic obstructive pulmonary disease, unspecified; F17.210 Nicotine dependence, cigarettes, uncomplicated
CPT/HCPCS: 99283; J7512

== ENCOUNTER 2020-03-31 18:55 | Emergency (ER) | payer MEDICARE, SELFPAY ==
--- NOTE | 2020-03-31 19:00 | DI.RAD_ITS ---
EXAM: XR KNEE LT 3V AP,LAT,TABITHA CLINICAL HISTORY: Pain. TECHNIQUE: 2D digital imaging was performed. COMPARISON: No exams were available for comparison FINDINGS: BONES: No acute fracture is present. No bony destructive lesion is seen. JOINTS: The knee is normally aligned. No joint effusion is seen. SOFT TISSUE: Normal. IMPRESSION: Normal radiographs of the left knee. DATA REPOSITORY: RADIATION DOSE DELIVERED:
[2020-03-31 19:02] VITALS: BP 136/96; PULSE 89; RESP 16; TEMP 36.5; O2SAT 97
--- NOTE | 2020-03-31 19:07 | ED.GENADUL_ITS ---
Discharge Plan Disposition Patient Disposition: HOME Condition: Stable Discharge Details Clinical Impression: Knee pain, left Primary Care Provider: Delmar Day ED Provider: Mary Jerome Home Meds and New Rx's Prescriptions: No Action epinephrine [EpiPen 2-Yoshi] 0.3 MG/0.3 ML auto-injector 0.3 mg IJ PRN PRNQty: 2 RF: 5 Discharge Instructions Instructions: Knee Pain (ED) Additional Instructions: Follow up with primary care provider in 3-5 days. Return to ED sooner if any worsening or concerns. Increase oral fluids. Please take Tylenol or Ibuprofen with food every 4-6 hours as needed for pain and swelling. Use crutches and knee immobilizer as needed. Rest, ice, compression, elevation. If continued pain please follow-up with orthopedics in 1 to 2 weeks. Weightbearing as tolerated. Referrals: Delio Cardona MD [ [facility] STAFF PHYSICIAN] - Delmar Day DO [Primary Care Provider] - Medical Decision Making 49-year-old male presents the ER with left knee pain which he reports is gotten worse over the last couple of days. Worse when he goes up and down stairs and when he kneels. He states that he feels like it is about to give out. He does have a history of arthritis, no significant injuries reported. No surgeries to that knee in the past. He denies taking any medications or anything for pain prior to arrival. He does not have any significant swelling or deformity upon initial exam no erythema. He does have medial and lateral tenderness to palpation. Imaging protocol: XR Left knee. Views: 3 views. COMPARISON: No relevant prior studies available. FINDINGS: Bones/joints: Normal. Soft tissues: Normal. IMPRESSION: No acute findings. Thank you for allowing us to participate in the care of your patient. Dictated and Authenticated by: Pankaj Shelley DO Patient was given crutches and a knee immobilizer to tramadol to go for pain and follow-up care with Ortho. X-ray is normal at this time discussed this with patient by staff nuclear medicine technologist, verbalized understanding. HPI General Mode of arrival: ambulatory . Date/Time Provider Initiated Documentation: 03/31/20 19:01 . Limitations to Documentation: no limitations . Information obtained by: patient . HPI Narrative: 49-year-old male presents the ER with left knee pain which he reports is gotten worse over the last couple of days. Worse when he goes up and down stairs and when he kneels. He states that he feels like it is about to give out. He does have a history of arthritis, no significant injuries reported. No surgeries to that knee in the past. He denies taking any medications or anything for pain prior to arrival. He does not have any significant swelling or deformity upon initial exam no erythema. He does have medial and lateral tenderness to palpation. Related Data Home Medications Medication Instructions Recorded Confirmed epinephrine [EpiPen 2-Yoshi] 0.3 mg IJ PRN PRN #2 auto.injct 01/15/19 03/31/20 Previous Rx's Medication Instructions Recorded epinephrine [EpiPen 2-Yoshi] 0.3 mg IJ PRN PRN #2 auto.injct 01/15/19 Allergies Allergy/AdvReac Type Severity Reaction Status Date / Time cyclobenzaprine AdvReac Mild nausea Unverified 01/25/20 07:34 [Cyclobenzaprine] ibuprofen AdvReac Mild nausea Unverified 01/25/20 07:34 naproxen AdvReac Mild Nausea Unverified 01/25/20 07:34 General Stated Complaint: Orthopedic BULL: 4 Review of Systems Narrative: Constitutional: Negative for weight loss, alert and oriented, well groomed, normal body habitus, appears comfortable. HEENT: Denies trauma, headaches, blurry vision, nasal discharge, sore throat, trouble swallowing. Chest: Denies chest pain, palpitations, irregular rhythm, hypertension. Respiratory: Denies Shortness of breath, cough, hemoptysis. GI: Denies abdominal pain, nausea, vomiting, diarrhea, constipation. : Denies dysuria, hematuria, flank pain, rectal bleeding. Neuro: Denies dizziness, blurry vision, weakness, syncope, headache or facial numbness. Hematologic: Denies easy bruising, intolerance to heat or cold, hair loss. Musculoskeletal Musculoskeletal: Reports arthralgias (Left knee pain) [facility] Medical History (Updated 03/31/20 @ 20:00 by Mary eJrome) Arthritis Attention deficit hyperactivity disorder Chronic obstructive lung disease Tobacco dependence, continuous Surgical History Appendectomy Endoscopic Carpal Tunnel release H/O ankle fusion 4 total surgeries Repair of inguinal hernia right Family History Father Personal history of malignant neoplasm Liver CA Diabetes Paternal Uncle Alcohol abuse Maternal Uncle Alcohol abuse Sister Hypertension Other Cancer Social History Smoking/Tobacco Use Status: Current every day Alcohol Intake: current Alcohol Intake frequency: holidays/special occasions only Alcohol type: other Drug use: Daily Substance use type: marijuana Adopted: No Caregiver/Support person: No Foster care: No Household members: none Housing: apartment Number of Children: 1 Do you need help understanding health information?: Often current occupation: Disabled Sexually active: Yes Do you think of yourself as: straight/heterosexual Current gender identity: male What type of physical activity do you participate in: bicycling and additional Details: rides bike in the summer. Do you feel safe at home: Yes Do you feel safe in your relationship?: Yes Exam Narrative Exam Narrative: Constitutional: Alert and oriented x3. Appears stated age. Normal body habitus. Head: Normocephalic, no trauma. Eyes: Pupils PERRLA, Red reflex noted, EOM's intact. Eyelids symmetrical without lesions, discharge, or swelling. ENT: Bilateral TM's WNL, External ear normal to inspection, no mastoid TTP, swelling, or erythema, Nasal turbinates WNL, no nasal discharge. Normal dentition, Posterior pharynx WNL, no exudate. Chest: RRR, Normal S1, S2, distal pulses intact. Resp: Lungs clear to auscultation bilaterally, no wheezes, rales, or rhonchi. Musculoskeletal: Normal gait, 5/5 strength to all four extremities. Skin: No suspicious rashes or lesions. Capillary refill less than 2 sec. Neurologic: Cranial nerves II-XII intact. Alert and oriented x 3. DTR's intact. Hematologic/Lymphatic: No ecchymosis, no lymphadenopathy. Course Vital Signs Vital signs: Vital Signs Temperature 36.5 C 03/31/20 19:02 Pulse 89 03/31/20 19:02 Respiratory Rate 16 03/31/20 19:02 Blood Pressure 136/96 H 03/31/20 19:02 Pulse Oximetry 97 03/31/20 19:02 Temperature 36.5 C 03/31/20 19:02 Temperature Source Skin 03/31/20 19:02 Pulse 89 03/31/20 19:02 Respiratory Rate 16 03/31/20 19:02 Blood Pressure 136/96 H 03/31/20 19:02 Blood Pressure Position Sitting 03/31/20 19:02 Pulse Oximetry 97 03/31/20 19:02 Oxygen Delivery Method Room Air 03/31/20 19:02 Oxygen Flow Rate 0 03/31/20 19:02 Pain Level 9 03/31/20 19:02
[2020-03-31] MEDS: traMADol 50 MG TAB PO (19:19)
--- NOTE | 2020-03-31 19:53 | DI.VRAD_ITS ---
PROCEDURE INFORMATION: Exam: XR Left Knee Exam date and time: 03/31/2020 7:30 PM Age: 49 years old Clinical indication: Left; Patient HX: Ongoing knee pain, no new trauma TECHNIQUE: Imaging protocol: XR Left knee. Views: 3 views. COMPARISON: No relevant prior studies available. FINDINGS: Bones/joints: Normal. Soft tissues: Normal. IMPRESSION: No acute findings. Dictated and Authenticated by: Pankaj Shelley MD. Ordering:MARIAELENA Hernandez MD
== END 2020-03-31 20:40 | disposition home or self-care (01) ==
PROVIDERS: Emergency Provider Registered Nurse Emergency; PCP Family Medicine
DX: M25.562 Pain in left knee (principal); J44.9 Chronic obstructive pulmonary disease, unspecified; F17.210 Nicotine dependence, cigarettes, uncomplicated
CPT/HCPCS: 29505; 73562; 99283; E0114; L1830

== ENCOUNTER 2020-04-08 14:21 | Outpatient (REF) | payer MEDICARE, SELFPAY ==
[2020-04-10 10:23] LABS: HIV-1/2 Ag & Ab Screen Negative (Negative)
[2020-04-10 10:32] LABS: Hepatitis C Ab w Rflx HCV PCR Negative (Negative)
[2020-04-10 10:50] LABS: Syphilis Serology (RPR) Negative (Negative)
[2020-04-10 14:27] LABS: Chlamydia Result Negative (Negative); GC Result Negative (Negative)
== END 2020-04-08 14:41 ==
LOC: LBN 14:21
PROVIDERS: PCP Family Medicine; Visit Provider Family Medicine
DX: Z11.3 Encounter for screening for infections with a predominantly sexual mode of transmission (principal); Z11.4 Encounter for screening for human immunodeficiency virus [HIV]; Z11.59 Encounter for screening for other viral diseases
CPT/HCPCS: 86803; 87389; 87491; 87591; 86592

== ENCOUNTER → 2020-05-07 11:01 | Outpatient (CLI) | payer MEDICARE, SELFPAY ==
--- NOTE | 2020-05-07 10:39 | DI.RAD_ITS ---
EXAM: XR KNEE LT 1V CLINICAL HISTORY: L knee pain TECHNIQUE: COMPARISON: CR,XR XR KNEE LT 3V AP,LAT,TABITHA from 03/31/2020 FINDINGS: Single AP view of the knee was obtained. No bony or soft tissue abnormality seen. IMPRESSION: RADIATION DOSE DELIVERED: Total DLP
== END ==
PROVIDERS: PCP Family Medicine; Referring Provider Family Medicine; Visit Provider Orthopaedic Surgery
DX: M25.562 Pain in left knee (principal); M22.2X2 Patellofemoral disorders, left knee; J44.9 Chronic obstructive pulmonary disease, unspecified
CPT/HCPCS: 20610; 99214; 73560; J1040

== ENCOUNTER 2020-06-30 10:34 | Emergency (ER) | payer MEDICARE, SELFPAY ==
[2020-06-30 10:39] VITALS: BP 143/113; PULSE 86; RESP 20; TEMP 36.6; O2SAT 96
--- NOTE | 2020-06-30 10:42 | ED.GENADUL_ITS ---
Discharge Plan Disposition Patient Disposition: HOME Condition: Stable Discharge Details Clinical Impression: Lumbosacral strain Primary Care Provider: Delmar Day ED Provider: Mary Jerome Home Meds and New Rx's Prescriptions: No Action epinephrine [EpiPen 2-Yoshi] 0.3 MG/0.3 ML auto-injector 0.3 mg IJ PRN PRNQty: 2 RF: 5 Discharge Instructions Instructions: Low Back Strain (ED), Lower Back Exercises (ED) Additional Instructions: Follow up with primary care provider in 3-5 days. Return to ED sooner if any worsening or concerns. Increase oral fluids. Please take Tylenol or Ibuprofen with food every 4-6 hours as needed for pain and swelling. Take medications as directed. Return for any loss of bowel or bladder control, inability to urinate or have a bowel movement. Fever, or any concerns. Referrals: Delmar Day DO [Primary Care Provider] - Discharge Data Discharge Date/Time-TO BE ENTERED AT DEPARTURE: 06/30/20 12:01 Medical Decision Making 49-year-old male presents to the ED with chief complaint of lower back pain. Is been intermittent for the last 3 days after doing some sawing on some lumber. She reports that the pain gets worse with movement. He reports that when lying down the front of his thighs go numb. He denies any loss of bowel or bladder control, no problems urinating, no nausea vomiting. He denies any saddle anesthesia. He did take an Advil prior to arrival. States he has been trying to apply heat with little to no help. She does have a past medical history of back pain, DVT, anxiety, pulmonary emphysema. Imaging protocol: XR of the lumbosacral spine, 4 or 5 views. COMPARISON: CR XR LUMBAR SPINE COMPLETE 06/21/2019 5:36 PM FINDINGS: Bones/joints: There is normal alignment and curvature of the lumbosacral spine. Mild disc space narrowing at L3-L4, L4-L5 and L5-S1. Soft tissues: Unremarkable. Other findings: No acute fractures or dislocations. IMPRESSION: 1. Mild degenerative changes in the lower lumbosacral spine. 2. No acute fracture 1143: Patient reevaluation. Patient states that he still feels pretty sore. He is not driving himself x-ray results are noted above. Patient given a tramadol here in department and 2 tramadol tablets to go. Instructed on strict return instructions, verbalized understanding. HPI General Mode of arrival: wheelchair . Date/Time Provider Initiated Documentation: 06/30/20 10:35 . Limitations to Documentation: no limitations . Information obtained by: patient . HPI Narrative: 49-year-old male presents to the ED with chief complaint of lower back pain. Is been intermittent for the last 3 days after doing some sawing on some lumber. She reports that the pain gets worse with movement. He reports that when lying down the front of his thighs go numb. He denies any loss of bowel or bladder control, no problems urinating, no nausea vomiting. He denies any saddle anesthesia. He did take an Advil prior to arrival. States he has been trying to apply heat with little to no help. She does have a past medical history of back pain, DVT, anxiety, pulmo nary emphysema. Related Data Home Medications Medication Instructions Recorded Confirmed epinephrine [EpiPen 2-Yoshi] 0.3 mg IJ PRN PRN #2 auto.injct 01/15/19 06/30/20 Previous Rx's Medication Instructions Recorded epinephrine [EpiPen 2-Yoshi] 0.3 mg IJ PRN PRN #2 auto.injct 01/15/19 Allergies Allergy/AdvReac Type Severity Reaction Status Date / Time cyclobenzaprine AdvReac Mild nausea Verified 05/07/20 10:21 [Cyclobenzaprine] ibuprofen AdvReac Mild nausea Verified 05/07/20 10:21 naproxen AdvReac Mild Nausea Verified 05/07/20 10:21 General Stated Complaint: Nk/Back Pain BULL: 3 Review of Systems Narrative: Constitutional: Negative for weight loss, alert and oriented, well groomed, normal body habitus, appears comfortable. HEENT: Denies trauma, headaches, blurry vision, nasal discharge, sore throat, trouble swallowing. Chest: Denies chest pain, palpitations, irregular rhythm, hypertension. Respiratory: Denies Shortness of breath, cough, hemoptysis. GI: Denies abdominal pain, nausea, vomiting, diarrhea, constipation. : Denies dysuria, hematuria, flank pain, rectal bleeding. Musculoskeletal: Complaining of lower back pain. Neuro: Denies dizziness, blurry vision, weakness, syncope, headache or facial numbness. Hematologic: Denies easy bruising, intolerance to heat or cold, hair loss. [facility] Medical History Arthritis Attention deficit hyperactivity disorder Chronic obstructive lung disease Tobacco abuse Tobacco dependence, continuous Surgical History Appendectomy Endoscopic Carpal Tunnel release H/O ankle fusion 4 total surgeries Repair of inguinal hernia right Family History Father Personal history of malignant neoplasm Liver CA Diabetes Paternal Uncle Alcohol abuse Maternal Uncle Alcohol abuse Sister Hypertension Other Cancer Social History Smoking/Tobacco Use Status: Current every day Smoking risk assessment performed?: Yes Alcohol Intake: current Alcohol Intake frequency: holidays/special occasions only Alcohol type: other Drug use: Daily Substance use type: marijuana Adopted: No Caregiver/Support person: No Foster care: No Household members: none Housing: apartment Number of Children: 1 Do you need help understanding health information?: Often current occupation: Disabled Sexually active: Yes Do you think of yourself as: straight/heterosexual Current gender identity: male What type of physical activity do you participate in: bicycling and additional Details: rides bike in the summer. 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 Appears stated age. Normal body habitus. Head: Normocephalic, no trauma. Eyes: Pupils PERRLA, Red reflex noted, EOM's intact. Eyelids symmetrical without lesions, discharge, or swelling. ENT: Bilateral TM's WNL, External ear normal to inspection, no mastoid TTP, swelling, or erythema, Nasal turbinates WNL, no nasal discharge. Normal dentition, Posterior pharynx WNL, no exudate. Chest: RRR, Normal S1, S2, distal pulses intact. Resp: Lungs clear to auscultation bilaterally, no wheezes, rales, or rhonchi. Musculoskeletal: Normal gait, 5/5 strength to all four extremities. Skin: No suspicious rashes or lesions. Capillary refill less than 2 sec. Neurologic: Cranial nerves II-XII intact. Alert and oriented x 3. DTR's intact. Hematologic/Lymphatic: No ecchymosis, no lymphadenopathy. Course Vital Signs Vital signs: Vital Signs Temperature 36.6 C 06/30/20 10:39 Pulse 86 06/30/20 10:39 Respiratory Rate 20 06/30/20 10:39 Blood Pressure 143/113 H 06/30/20 10:39 Pulse Oximetry 96 06/30/20 10:39 Temperature 36.6 C 06/30/20 10:39 Temperature Source Skin 06/30/20 10:39 Pulse 86 06/30/20 10:39 Respiratory Rate 20 06/30/20 10:39 Blood Pressure 143/113 H 06/30/20 10:39 Blood Pressure Position Sitting 06/30/20 10:39 Pulse Oximetry 96 06/30/20 10:39 Oxygen Delivery Method Room Air 06/30/20 10:39 Oxygen Flow Rate 0 06/30/20 10:39 Pain Level 10 06/30/20 10:39
[2020-06-30 10:47] VITALS: BP 115/79; PULSE 89; RESP 20; O2SAT 95
[2020-06-30] MEDS: Acetaminophen 500 MG TAB 1000 MG PO (10:47)
[2020-06-30] MEDS: diazePAM 5 MG TAB PO (10:47)
[2020-06-30 10:50] VITALS: BP 115/79; PULSE 84; O2SAT 95
[2020-06-30 10:51] VITALS: O2SAT 95
--- NOTE | 2020-06-30 11:14 | DI.RAD_ITS ---
EXAM: XR LUMBAR SPINE COMPLETE CLINICAL HISTORY: Lower back pain. TECHNIQUE: 2D digital imaging was performed. COMPARISON: CR,XR XR LUMBAR SPINE COMPLETE from 06/21/2019 FINDINGS: There are 5 lumbar type vertebral bodies. There is no spondylolysis or spondylolisthesis. No acute fractures or subluxations are present. Mild disc space narrowing is seen at L3-4 and L4-L5. Endplat e osteophytes are seen at multiple levels of the lumbar spine. Facet arthropathy is seen in the lowe r lumbar spine. IMPRESSION: 1. No acute abnormality. 2. Degenerative changes in the lumbar spine. DATA REPOSITORY: RADIATION DOSE DELIVERED:
[2020-06-30 11:15] VITALS: O2SAT 93
[2020-06-30 11:16] VITALS: BP 124/75; PULSE 78
--- NOTE | 2020-06-30 11:37 | DI.VRAD_ITS ---
PROCEDURE INFORMATION: Exam: XR Lumbosacral Spine, 4 or 5 Views Exam date and time: 06/30/2020 11:13 AM Age: 49 years old Clinical indication: Patient HX: Low back pain/no known trauma TECHNIQUE: Imaging protocol: XR of the lumbosacral spine, 4 or 5 views. COMPARISON: CR XR LUMBAR SPINE COMPLETE 06/21/2019 5:36 PM FINDINGS: Bones/joints: There is normal alignment and curvature of the lumbosacral spine. Mild disc space narrowing at L3-L4, L4-L5 and L5-S1. Soft tissues: Unremarkable. Other findings: No acute fractures or dislocations. IMPRESSION: 1. Mild degenerative changes in the lower lumbosacral spine. 2. No acute fracture Dictated and Authenticated by: Jc Bojorquez MD. Ordering:MARIAELENA Hernandez MD
[2020-06-30] MEDS: traMADol 50 MG TAB PO (11:53)
== END 2020-06-30 12:01 | disposition home or self-care (01) ==
PROVIDERS: Emergency Provider Registered Nurse Emergency; PCP Family Medicine
DX: S39.012A Strain of muscle, fascia and tendon of lower back, initial encounter (principal); X50.9XXA Other and unspecified overexertion or strenuous movements or postures, initial encounter; R20.0 Anesthesia of skin; J44.9 Chronic obstructive pulmonary disease, unspecified; F17.210 Nicotine dependence, cigarettes, uncomplicated
CPT/HCPCS: 99283; 72110; 81003

== ENCOUNTER → 2020-07-22 01:02 | Outpatient (CLI) | payer MEDICARE, SELFPAY ==
--- NOTE | 2020-07-22 08:45 | DI.MRI_ITS ---
EXAM: MR LUMBAR SPINE WO CLINICAL HISTORY: ACUTE SEVERE BACK PAIN, RT LEG NUMBNESS,M54.9. TECHNIQUE: Multiplanar multisequence MRI of the Lumbar spine was performed. COMPARISON: CR,XR XR LUMBAR SPINE COMPLETE from 06/30/2020 CR,XR XR LUMBAR SPINE COMPLETE from 06/30/2020 FINDINGS: Conus medullaris is at normal level. There is no evidence of conus mass nor subjacent clumping of in trathecal nerve roots to suggest arachnoiditis. Distal thecal sac is thin doubted approximately S1 l evel. No evidence of obvious cord tethering nor caudal lipoma. Bones:There are no fractures nor ominous osseous lesions in the lumbar vertebral bodies and visualize d sacrum. Multilevel Schmorl's node invagination is in the lower thoracic and upper lumbar spine, no t associated with intraosseous edema. With respect to the individual levels... T12-L1: Unremarkable L1-2: Normal disc height and signal. No disc herniation nor central canal stenosis.No foraminal steno sis L2-3: Normal disc height. Broad annular bulging. There is a superimposed central subligamentous disc protrusion which extends caudally behind the posterior longitudinal ligament behind the posterior a spect of L2 vertebral body for distance of 4 millimeters. No central canal stenosis. No significant foraminal stenosis. No facet arthropathy. L3-4: Moderate disc space narrowing. Broad symmetrical annular bulging. This extends into the exiti ng neural foramina where there is mild bilateral foraminal stenosis due to the annular bulging and he ight loss of the exiting foraminae.No foraminal stenosis.Mild-moderate degenerative changes in the fa cet joints bilaterally. L4-5: Mild-moderate disc space narrowing. Annular bulging with a superimposed posterolateral right d isc protrusion which extends posteriorly 3 millimeters and is approximately 1.7 centimetres wide. De nsity anterior [id number] thecal sac. Extends into the exiting right neural foramen with mi ld-moderate right-sided foraminal stenosis. There is mild left-sided foraminal stenosis. Mild degen erative changes in the facet joints. L5-S1: Relatively preserved disc height and signal. Annular bulging with a superimposed small centra l subligamentous does bulge but this does not significantly indent the thecal sac and central canal d imensions at this level are within normal limits. However, there is moderate bilateral foraminal vangie nosis at this level due to short AP dimensions the pedicles, annular bulging, and degenerative change s facet joints. Soft tissues: paraspinal soft tissues appear unremarkable. IMPRESSION: 1. Multilevel findings as described individually above. 2. No high-grade central spinal canal stenosis. 3. Mild multilevel foraminal stenosis. 4. Mild facet arthropathy. 5. No ominous osseous lesions. Sign rib DATA REPOSITORY:
== END ==
PROVIDERS: PCP Family Medicine; Visit Provider Nurse Practitioner
DX: M54.5 Low back pain (principal); R20.0 Anesthesia of skin; M51.36 Other intervertebral disc degeneration, lumbar region; M48.061 Spinal stenosis, lumbar region without neurogenic claudication
CPT/HCPCS: 72148

== ENCOUNTER 2020-10-08 10:41 | Outpatient (CLI) | payer MEDICARE, SELFPAY ==
--- NOTE | 2020-10-08 06:00 | DI.RAD_ITS ---
EXAM: XR PAIN CLINIC LUMBAR SP 2V CLINICAL HISTORY: Dx: Lumbar Spondylosis. TECHNIQUE: Fluoroscopy was provided for the referring physician for guidance with performing injecti on procedure. COMPARISON: No exams were available for comparison FINDINGS: Please see procedure note for details. Fluoro Time: 60.6 seconds RADIATION DOSE DELIVERED:
[2020-10-08 10:46] VITALS: BP 116/84; PULSE 76; RESP 18; TEMP 37.1; O2SAT 96
[2020-10-08 11:27] VITALS: BP 123/84; PULSE 84; RESP 15; O2SAT 96
[2020-10-08] MEDS: Bupivacaine 0.5% Pres-Free 10 ML VIAL IJ (11:27)
[2020-10-08] MEDS: Omnipaque 240 MG/ML 50 ML BTL IJ (11:28)
--- NOTE | 2020-10-08 11:33 | PDOC.PAIN_ITS ---
Pain Clinic Procedure Note Procedure Note Procedure Note: Lumbar/Sacral Medial Branch Blocks BENEA TORRES has been referred to the [facility] for lumbar/sacral medial branch blocks. pre-operative diagnosis: lumbar spondylosis post-operative diagnosis: same as above COMMENTS: patient has axial back pain, worse with bending and twisting. he stopped his pain medications as instructed prior to today's procedure. he reports back pain of 10 out of 10. Patient was interviewed and the medical record reviewed. There were no medical, pharmacologic, radiographic or other structural contraindications to attempting fluoroscopically guided local anesthetic lumbar/sacral medial branch blocks. Risks and expected side effects as well as potential benefit of the procedure were reviewed and voiced concerns addressed. The printed consent form was signed and witnessed. Standard time-out procedure was performed. Patient was placed in the prone position on the fluoroscopy table and automated blood pressure cuff and pulse oximeter applied. The skin entry points for approaching the anatomic target points of the segmental medial branches of bilateral L3, L4, L5-DR were identified with anfluoroscopy and marked. Following thorough Chlorhexadine preparation of the skin and draping and 1% lidocaine infiltration of the skin entry points and subcutaneous tissues, a 22 gauge spinal needle was placed under fluoroscopic guidance down on to the target point for each respective segmental medial branch.Position was confirmed in A/P, oblique and lateral views with 0.25ml of omnipaque 240. Coult be this method .5ml 0.5% Bupivacaine was injected . Vital signs were stable throughout the procedure and were as recorded in the docflowsheet by the nursing staff. Follow up plans and appointments were discussed and was instructed to keep careful note of how the usual pain was modified by these injections. Specifically was asked to keep a pain diary for the next 24 hours using a numeric pain scale of 0-10 and report these results at the follow-up visit. Po st procedure instruction was given as documented in the nursing documentation and having met discharge criteria. Patient was discharged from the [facility]. Based on the medial branches blocked today, if the patient has adequate relief and we are able to proceed to radiofrequency ablation, the treatment should result in the denervation of the bilateral L4/5 and L5/S1. We would expect to denervate a total of 4 facets during the radiofrequency ablation. Comment: post procedure, patient reported increased range of motion with lumbar extension and lateral rotation, but has not noted significant pain reduction. he is instructed to keep a pain log for the next 4 hours. Coleman Castillo MD Pain Management CC: Delmar Day DO
== END 2020-10-08 10:42 | disposition home or self-care (01) ==
LOC: PC 10:41
PROVIDERS: PCP Family Medicine; Visit Provider Internal Medicine
DX: M47.816 Spondylosis without myelopathy or radiculopathy, lumbar region (principal)
CPT/HCPCS: 64493; 64494; 72100; Q9967

== ENCOUNTER 2020-10-14 23:00 | Emergency (ER) | payer MEDICARE, SELFPAY ==
--- NOTE | 2020-10-14 23:00 | DI.CT_ITS ---
EXAM: CT HEAD CERV SPINE FACIAL WO COMPARISON: CT CT neck w from 01/15/2019 FINDINGS: CT examination of the cervical spine was performed without contrast administration. There are mild degenerative changes of the cervical spine. There is no evidence of acute cervical spine fracture or dislocation. Intervertebral disc spaces are well maintained. Tracheolaryngeal structures appear intact. No cervical mass or adenopathy. Noncontrast cranial CT was performed. Ventricular system is normal in appearance. No evidence of acute intracranial hemorrhage, mass effect, or midline shift. No calvarial fracture. The orbital and temporal bone structures appear intact. CT examination of the facial bones was performed without contrast administration. There is mild muco periosteal thickening ethmoid air cells and probable small bilateral maxillary sinus polyps. No evid ence acute effusion or hemorrhage. No evidence of facial fracture. Orbital contents appear intact. There is slight fluid in mastoid air cells bilaterally consistent with chronic serous mastoiditis. N o evidence of acute temporal bone injury. IMPRESSION: No evidence of acute cervical spine injury. No evidence of acute intracranial injury. No evidence of acute facial injury. RADIATION DOSE DELIVERED: 2,233.38mGy.cm Total DLP 2,233.38mGy.cm Total DLP DATA REPOSITORY: All CT scans at this facility are submitted to the National Radiology Data Registry (NRDR) Dose Index Registry (DIR) with the [employer] (ACR). RADIATION OPTIMIZATION: All CT scans at this facility use at least one of these dose optimization te chniques: automated exposure control; mA and/or kV adjustment per patient size (includes targeted exa ms where dose is matched to clinical indication); or iterative reconstruction.
[2020-10-14 23:07] VITALS: BP 153/87; PULSE 101; RESP 16; TEMP 36.6; O2SAT 98
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
[2020-10-14] MEDS: Acetaminophen 500 MG TAB 1000 MG PO (23:18)
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
--- NOTE | 2020-10-15 00:17 | NUR.NOTE ---
Nursing Note: referral faxed to ENT for follow up care regarding ER visit as requested by Dr. Barajas.
[2020-10-15] MEDS: oxyCODONE 5 MG TAB PO (00:19)
== END 2020-10-15 00:30 | disposition home or self-care (01) ==
PROVIDERS: Emergency Provider Emergency Medicine; PCP Family Medicine
DX: S09.22XA Traumatic rupture of left ear drum, initial encounter (principal); S09.8XXA Other specified injuries of head, initial encounter; M54.2 Cervicalgia; Y04.2XXA Assault by strike against or bumped into by another person, initial encounter
CPT/HCPCS: 99284; 70450; 70486; 72125; 99285

== ENCOUNTER → 2020-11-22 04:33 | Outpatient (CLI) | payer MEDICARE, SELFPAY ==
--- NOTE | 2020-11-22 07:30 | DI.RAD_ITS ---
Exam(s) XR RIBS RT W PA LAT CHEST CLINICAL HISTORY: Fall, right sided rib pain,PLEURODYNIA,R07.81. COMPARISON: CT CT CHEST PE CTA from 01/15/2019 FINDINGS: LUNGS:Clear. No pleural abnormality seen. HEART: Normal. MEDIASTINUM: Normal. BONES: No displaced rib fracture is seen. No bony destructive lesion is seen. OHER FINDINGS: None. IMPRESSION: 1. Unremarkable radiographic appearance of the right ribs. 2. No acute pulmonary findings.
== END ==
PROVIDERS: PCP Family Medicine; Visit Provider Family Medicine
DX: R07.81 Pleurodynia (principal)
CPT/HCPCS: 71046; 71100

== ENCOUNTER 2021-01-27 10:06 | Emergency (ER) | payer MEDICARE, SELFPAY ==
[2021-01-27 10:14] VITALS: BP 138/91; PULSE 77; RESP 16; TEMP 36.4; O2SAT 97
--- NOTE | 2021-01-27 10:33 | ED.GENADUL_ITS ---
Discharge Plan Disposition Patient Disposition: HOME Condition: Stable Discharge Details Clinical Impression: Lumbar radiculopathy Primary Care Provider: Delmar Day ED Provider: Aixa Mark Home Meds and New Rx's Prescriptions: New gabapentin [Neurontin] 100 mg capsule 100 mg PO TID Qty: 21 RF: 0 prednisone 10 mg tablet 10 mg PO DAILY Qty: 41 RF: 0 Continued hydrocodone-acetaminophen 5-325 mg tablet 1 tab PO TID MDD 15 mg PRN (Reason: pain) Qty: 84 RF: 0 epinephrine [EpiPen 2-Yoshi] 0.3 MG/0.3 ML auto-injector 0.3 mg IJ PRN PRNQty: 2 RF: 5 Discharge Instructions Instructions: Acute Low Back Pain (ED) Additional Instructions: Please follow-up with your primary care physician this week Take prednisone for the next 15 days You may take Neurontin as needed, use while taking this with Vicodin as it may make you very tired Please return with changes in bowel or bladder, worsening pain or weakness, fever, chills, or with any new or progressing symptoms Medical Decision Making Patient is alert, oriented, of decisional capacity, considered cauda equina syndrome however patient's exam is inconsistent with this pathology , Patient is ambulatory He has a mildly diminished sensation to her right lateral thigh I suspect he has lumbar radiculopathy from herniated disc Return precautions discussed and patient expressed understanding Low suspicion for discitis or epidural abscess clinically Will need close outpatient follow-up, PT already established Will place on prednisone for 2 weeks and small amount of Neurontin I will not tell patient by getting that he is under a pain contract and he will contact his doctor for this He was given 2 tablets of Vicodin in the emergency room as he does have a ride home Return precautions for cauda equina syndrome or more significant pathology were discussed and patient expressed understanding, discharged home in stable condition with stable vital Medical Records Medical records reviewed: Yes I reviewed the patient's medical records. HPI General Mode of arrival: ambulatory . Date/Time Provider Initiated Documentation: 01/27/21 10:12 . Limitations to Documentation: no limitations . Information obtained by: patient . HPI Narrative: This 50-year-old gentleman with history of chronic back pain presents with report of paresthesias to his lateral right thigh. He states his back pain is persistent but not worsening. He does see PT weekly for that discomfort. He states that he has had the paresthesia for the past 3 weeks. He denies any groin numbness, changes in bowel or bladder, fever, chills, or history of IV drug abuse. Pain is exacerbated in the morning and partially alleviated with rest. Denies any dysuria or abdominal pain. Denies any weakness to his extremities. The pain is sharp and radiational. Related Data Home Medications Medication Instructions Recorded Confirmed epinephrine [EpiPen 2-Yoshi] 0.3 mg IJ PRN PRN #2 auto.injct 01/15/19 01/27/21 hydrocodone 5 mg-acetaminophen 325 1 tab PO TID PRN #84 tab MDD 15 mg 12/12/20 01/27/21 mg tablet gabapentin [Neurontin] 100 mg PO TID #21 cap 01/27/21 prednisone 10 mg PO DAILY #41 tab 01/27/21 Previous Rx's Medication Instructions Recorded epinephrine [EpiPen 2-Yoshi] 0.3 mg IJ PRN PRN #2 auto.injct 01/15/19 hydrocodone 5 mg-acetaminophen 325 1 tab PO TID PRN #84 tab MDD 15 mg 12/12/20 mg tablet gabapentin [Neurontin] 100 mg PO TID #21 cap 01/27/21 prednisone 10 mg PO DAILY #41 tab 01/27/21 Allergies Allergy/AdvReac Type Severity Reaction Status Date / Time ketorolac AdvReac Intermediate Nausea Verified 01/27/21 10:17 cyclobenzaprine AdvReac Mild nausea Verified 01/27/21 10:17 [Cyclobenzaprine] ibuprofen AdvReac Mild nausea Verified 01/27/21 10:17 naproxen AdvReac Mild Nausea Verified 01/27/21 10:17 General Stated Complaint: Orthopedic BULL: 4 Review of Systems All systems reviewed & are unremarkable except as noted in HPI and below PFSH Medical History Arthritis Attention deficit hyperactivity disorder Chronic back pain Chronic obstructive lung disease Tobacco abuse Tobacco dependence, continuous Surgical History Appendectomy Endoscopic Carpal Tunnel release H/O ankle fusion 4 total surgeries Repair of inguinal hernia right Family History Father Personal history of malignant neoplasm Liver CA Diabetes Paternal Uncle Alcohol abuse Maternal Uncle Alcohol abuse Sister Hypertension Other Cancer Social History (Updated 09/02/20 @ 09:49 by Pinky Leon RN) Smoking/Tobacco Use Status: Current every day Tobacco: How many years used: 20 Smoking risk assessment performed?: Yes Alcohol Intake: current Alcohol Intake frequency: holidays/special occasions only Alcohol type: other Drug use: Occasionally Substance use type: marijuana Adopted: No Caregiver/Support person: No Foster care: No Household members: none Housing: apartment Number of Children: 1 Do you need help understanding health information?: Often current occupation: Disabled Sexually active: Yes Do you think of yourself as: straight/heterosexual Current gender identity: male What type of physical activity do you participate in: bicycling and additional Details: rides bike in the summer. 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: No Do you feel safe at home: Yes Do you feel safe in your relationship?: Yes Exam Const General: no acute distress Eyes Sclera: sclerae normal Chest Chest: normal inspection of the chest Resp Effort & Inspection: normal respiratory effort Auscultation: clear to auscultation bilaterally Cardio Rate: regular rate Rhythm: regular rhythm Other: Distal pulses intact GI Other: Nontender, no abdominal bruit or pulsatile mass, no CVA tenderness Back/Spine/Pelvis Other: Mild right lower paraspinal tenderness Skin General skin exam: no rashes or lesions noted Neuro General: patient alert and patient oriented x3 Gait: antalgic Motor: strength 5/5 throughout Sensory Exam: sensory deficits noted Other: DTRs intact bilateral lower extremities Extrem Other: No tenderness to bilateral calves Mildly diminished sensation to right lateral thigh half anterior thigh laterally negative babinskin and SLR bilaterally Course Vital Signs Vital signs: Vital Signs Temperature 36.4 C L 01/27/21 10:14 Pulse 77 01/27/21 10:14 Respiratory Rate 16 01/27/21 10:14 Blood Pressure 138/91 H 01/27/21 10:14 Pulse Oximetry 97 01/27/21 10:14 Temperature 36.4 C L 01/27/21 10:14 Temperature Source Skin 01/27/21 10:14 Pulse 77 01/27/21 10:14 Respiratory Rate 16 01/27/21 10:14 Respiratory Effort Non-Labored 01/27/21 10:14 Blood Pressure 138/91 H 01/27/21 10:14 Blood Pressure Position Sitting 01/27/21 10:14 Pulse Oximetry 97 01/27/21 10:14 Oxygen Delivery Method Room Air 01/27/21 10:14 Oxygen Flow Rate 0 01/27/21 10:14 Pain Level 9 01/27/21 10:19
[2021-01-27] MEDS: HYDROcodone 5/Acetaminophen 325 TAB PO (10:36)
== END 2021-01-27 10:48 | disposition home or self-care (01) ==
PROVIDERS: Emergency Provider Physician Assistant; PCP Family Medicine
DX: M54.16 Radiculopathy, lumbar region (principal)
CPT/HCPCS: 99283

== ENCOUNTER 2021-05-27 15:28 | Outpatient (REF) | payer MEDICARE, SELFPAY ==
[2021-05-29 10:14] LABS: COVID-19 RT-PCR UVMMC Result Negative (Negative)
== END 2021-05-27 15:29 | disposition home or self-care (01) ==
LOC: LBN 15:28
PROVIDERS: PCP Family Medicine; Visit Provider Nurse Practitioner Family
DX: Z20.822 Contact with and (suspected) exposure to COVID-19 (principal)
CPT/HCPCS: U0003; U0005

== ENCOUNTER 2021-09-16 11:53 | Outpatient (REF) | payer MEDICARE, SELFPAY ==
[2021-09-22 12:03] LABS: Codeine Negative ng/mL (Cutoff: 25); Dihydrocodeine 207 ng/mL (Cutoff: 25); Hydrocodone 493 ng/mL (Cutoff: 25); Hydromorphone 287 ng/mL (Cutoff: 25); Morphine Negative ng/mL (Cutoff: 25); Naloxone Negative ng/mL (Cutoff: 25); Norhydrocodone 940 ng/mL (Cutoff: 25); Noroxycodone Negative ng/mL (Cutoff: 25); Noroxymorphone Negative ng/mL (Cutoff: 25); Opiates Interpretation Positive.
== END 2021-09-16 11:54 | disposition home or self-care (01) ==
LOC: LBN 11:53
PROVIDERS: PCP Family Medicine; Visit Provider Family Medicine
DX: M54.9 Dorsalgia, unspecified (principal)
CPT/HCPCS: 80361; 80362; 80365

== ENCOUNTER 2022-03-01 20:33 | Emergency (ER) | payer MEDICARE, SELFPAY ==
[2022-03-01 20:48] VITALS: BP 112/77; PULSE 98; RESP 18; TEMP 36.4; O2SAT 98
--- NOTE | 2022-03-01 21:30 | DI.RAD_ITS ---
Exam(s) XR LUMBAR SPINE COMPLETE EXAM: XR LUMBAR SPINE COMPLETE CLINICAL HISTORY: Lower back pain. TECHNIQUE: 2D digital imaging was performed of the lumbar spine. Five images were obtained. AP, la teral, right oblique, left oblique and L5-S1 spot views were obtained. COMPARISON: CR,XR XR LUMBAR SPINE COMPLETE from 06/30/2020 FINDINGS: BONES: No fracture or destructive lesion. Endplate osteophytes are seen at multiple levels of the lum bar spine. No facet hypertrophy identified. DISKS: Mild disc space narrowing at L3-4 and L5-S1. ALIGNMENT: Lumbar spinal alignment is within normal limits. No spondylolysis or spondylolisthesis. SOFT TISSUE: Normal. IMPRESSION: Stable degenerative changes in the lumbar spine. DATA REPOSITORY: RADIATION DOSE DELIVERED:
--- NOTE | 2022-03-01 21:30 | DI.RAD_ITS ---
Exam(s) XR CHEST 2V PA LATERAL EXAM: XR CHEST 2V PA LATERAL CLINICAL HISTORY: SOB TECHNIQUE: 2D digital imaging was performed of the chest. Two images were obtained. PA and lateral views were obtained. COMPARISON: CR XR RIBS RT W PA LAT CHEST from 11/22/2020 FINDINGS: MEDIASTINUM: Normal. HEART: Normal. PULMONARY VASCULATURE: Normal. LUNGS: No focal consolidating infiltrates. There are low lung volumes and atelectasis in the lung ba ses. There is mild peribronchial thickening. PLEURAL SPACE: No pleural effusion or pneumothorax. BONE:Within normal limits for the patient's age. OTHER FINDINGS:Normal. IMPRESSION: Mild peribronchial thickening. Consider bronchitis. Please correlate clinically. DATA REPOSITORY: RADIATION DOSE DELIVERED:
--- NOTE | 2022-03-01 21:40 | ED.GENADUL_ITS ---
Discharge Plan Disposition Patient Disposition: HOME Condition: Stable Discharge Details Clinical Impression: Acute exacerbation of chronic low back pain, Bronchitis Primary Care Provider: Delmar Day ED Provider: Mary Jerome Home Meds and New Rx's Prescriptions: New prednisone 20 mg tablet 60 mg PO DAILY 5 Days Qty: 15 0RF albuterol sulfate 90 mcg/actuation HFA aerosol inhaler 2 puff IH QID PRN (Reason: shortness of breath or wheezing) Qty: 8 0RF azithromycin 250 mg tablet See Rx Instructions .ROUTE .COMPLEX 6 Days Qty: 6 0RF Rx Instructions: For 250 mg dose pack: take 500 mg today (day 1), then 250 mg for 4 days (days 2-5) No Action gabapentin 300 mg capsule 300 mg PO QHS Qty: 90 3RF hydrocodone-acetaminophen 5-325 mg tablet 1 tab PO .COMPLEX MDD 17.5 mg PRN (Reason: pain) Qty: 91 0RF Rx Instructions: t1 tab tid, may take occassional extra 1/2 tab prn qhs PRN; epinephrine [EpiPen 2-Yoshi] 0.3 MG/0.3 ML auto-injector 0.3 mg IJ PRN PRNQty: 2 5RF Discharge Instructions Instructions: Acute Bronchitis (ED), Chronic Back Pain (DC) Additional Instructions: At this time there is no significant change to the back x-rays. Chest x-ray shows evidence of possible bronchitis. Take the prednisone 3 tablets once a day for the next 5 days. Use the albuterol inhaler 1 or 2 puffs every 4-6 hours as needed for wheezing. Take the antibiotic as directed. Please follow-up with your primary care provider regarding your back pain. Return to the ER to be seen sooner for any loss of bowel or bladder control, numbness or tingling in your groin or rectal area or inability to urinate. Follow up with primary care provider in 3-5 days. Return to ED sooner if any worsening or concerns. Increase oral fluids. Please take Tylenol or Ibuprofen with food every 4-6 hours as needed for pain and swelling. Referrals: Delmar Day DO [Primary Care Provider] - 5 days Medical Decision Making 31-year-old male presents to the ER with chief complaint of acute exacerbation of chronic back pain. Reports that it is worsened over the last 4 to 5 days. He denies any known injury or exacerbation of the pain. He reports having trouble getting out of bed over the last few days. He denies any saddle anesthesia, denies any loss of bowel or bladder control. Denies any constipation or urinary hesitancy. Denies any numbness tingling in his legs. Does have a history of chronic back pain and bulging disks in his lower spine. He does receive hydrocodone from his primary care provider which she has been taking. Chest x-ray, L-spine x-rays ordered, valium and hydromorphone IM Patient ambulatory upon discharge. X-ray shows possible bronchitis. Patient was given antibiotics with albuterol inhaler and 5-day stent of prednisone. Discussed home care and follow-up with regard to his chronic back pain with his PCP. This text was generated using [employer] system, please disregard any oddities of phrase or misspellings. Medical Records Medical records reviewed: Yes I reviewed the patient's medical records. Imaging Data Radiologic Study: Imaging: X-Ray Radiologist's impression: Imaging protocol: Radiologic exam of the chest. Views: 2 views. COMPARISON: CR XR RIBS RT W PA LAT CHEST 11/22/2020 12:59 PM FINDINGS: Lungs: Mild right greater than left lower lobe atelectatic changes. Mild peribronchial thickening present. Consider bronchitis. There is no evidence of focal pulmonary consolidation. The pulmonary vasculature is normal. Pleural spaces: There is no evidence of pneumothorax. There are no pleural effusions present. Heart/Mediastinum: The cardiac silhouette is within normal limits. The mediastinum is normal. Bones/joints: The spine, sternum, ribs, and pectoral girdles show no evidence of acute abnormality Other findings: There are no soft tissue masses or calcifications. IMPRESSION: Mild peribronchial thickening present. Consider bronchitis. Thank you for allowing us to participate in the care of your patient. Dictated and Authenticated by: Rachid Erickson MD Radiologic Study #2: Imaging: X-Ray Radiologist's impression: Imaging protocol: Radiologic exam of the lumbosacral spine. Views: 4 or 5 views. COMPARISON: OT XR PAIN CLINIC LUMBAR SP 2V 10/08/2020 10:12 AM FINDINGS: Bones/joints: There is no evidence of compression fractures or deformities. Spinal alignment is normal. Narrowing of the intervertebral disc spaces between L3-L4, L4-L5 and L5-S1 unchanged compared to prior study of 06/30/2020. Moderate degenerative changes with anterior osteophytes sclerosis consistent with chronic degenerative changes sent stable compared to the prior study. Bilateral facet degenerative changes stable compared to prior study. The sacroiliac joints are within normal limits. Soft tissues: There are no soft tissue calcifications or masses. IMPRESSION: Stable degenerative changes of the lumbosacral spine compared to 06/30/2020 no evidence of acute fracture subluxation. Thank you for allowing us to participate in the care of your patient. Dictated and Authenticated by: Rachid Erickson MD [facility] General Mode of arrival: ambulatory . Date/Time Provider Initiated Documentation: 03/01/22 21:07 . Limitations to Documentation: no limitations . Information obtained by: patient, RN notes reviewed and old records reviewed . HPI Narrative: 31-year-old male presents to the ER with chief complaint of acute exacerbation of chronic back pain. Reports that it is worsened over the last 4 to 5 days. He denies any known injury or exacerbation of the pain. He reports having t rouble getting out of bed over the last few days. He denies any saddle anesthesia, denies any loss of bowel or bladder control. Denies any constipation or urinary hesitancy. Denies any numbness tingling in his legs. Does have a history of chronic back pain and bulging disks in his lower spine. He does receive hydrocodone from his primary care provider which she has been taking. He also endorses some shortness of breath. He is a smoker. He denies any significant cough. He does have some expiratory wheezes scattered on initial exam Related Data Home Medications Medication Instructions Recorded Confirmed epinephrine 0.3 mg/0.3 mL 0.3 mg (0.3 mL) IJ PRN PRN ##2 01/15/19 03/01/22 injection, auto-injector (EpiPen 2-Yoshi) gabapentin 300 mg capsule 300 mg PO QHS #90 caps 09/16/21 09/16/21 hydrocodone 5 mg-acetaminophen 325 1 tab PO .COMPLEX PRN pain #91 tabs 01/20/22 03/01/22 mg tablet albuterol sulfate 90 mcg/actuation 2 puff inhalation QID PRN 03/01/22 aerosol inhaler shortness of breath or wheezing #8 grams azithromycin 250 mg tablet See Rx Instructions PO .COMPLEX 6 03/01/22 days #6 tabs prednisone 20 mg tablet 60 mg PO DAILY 5 days #15 tabs 03/01/22 Previous Rx's Medication Instructions Recorded epinephrine 0.3 mg/0.3 mL 0.3 mg (0.3 mL) IJ PRN PRN ##2 01/15/19 injection, auto-injector (EpiPen 2-Yoshi) gabapentin 300 mg capsule 300 mg PO QHS #90 caps 09/16/21 hydrocodone 5 mg-acetaminophen 325 1 tab PO .COMPLEX PRN pain #91 tabs 01/20/22 mg tablet albuterol sulfate 90 mcg/actuation 2 puff inhalation QID PRN 03/01/22 aerosol inhaler shortness of breath or wheezing #8 grams azithromycin 250 mg tablet See Rx Instructions PO .COMPLEX 6 03/01/22 days #6 tabs prednisone 20 mg tablet 60 mg PO DAILY 5 days #15 tabs 03/01/22 Allergies Allergy/AdvReac Type Severity Reaction Status Date / Time ketorolac AdvReac Intermediate Nausea Verified 03/01/22 20:50 cyclobenzaprine AdvReac Mild nausea Verified 03/01/22 20:50 [Cyclobenzaprine] ibuprofen AdvReac Mild nausea Verified 03/01/22 20:50 naproxen AdvReac Mild Nausea Verified 03/01/22 20:50 General Stated Complaint: Nk/Back Pain BULL: 3 Review of Systems All systems reviewed & are unremarkable except as noted in HPI and below Constitutional Constitutional: Denies weakness Cardiovascular Cardiovascular: Reports dyspnea Respiratory Respiratory: Reports dyspnea and Reports wheezing Genitourinary Genitourinary: Denies dysuria, Denies urinary hesitancy and Denies urinary incontinence Musculoskeletal Musculoskeletal: Reports as per HPI and Reports back pain Neurologic Neurologic: Reports as per HPI and Denies weakness Allergic/Immunologic Allergic/Immunologic: Reports wheezing PFSH All Active Problems (Updated 03/01/22 @ 23:14 by Mary Jerome NP) Acute exacerbation of chronic low back pain (Acute) Bronchitis (Acute) Lumbar radiculopathy (Acute) Sensorineural hearing loss of both ears (Acute) Tinnitus (Acute) Chronic back pain (Acute) Eardrum rupture, left (Acute) Blunt head trauma (Acute) Right leg numbness (Acute) Acute back pain (Acute) Patellofemoral pain syndrome of left knee (Acute) steroid injection: 05/07/2020 Tobacco abuse (Acute) Lesion of uvula (Acute) history of uvula with squamous atypia. Status post excision. Continues to smoke. Tobacco use (Acute) Xerostomia (Acute) Throat pain (Acute) Post-operative pain (Acute) Wrist pain, right (Acute) Oropharyngeal dysphagia (Acute) Difficulty breathing (Acute) Anxiety (Chronic) Pulmonary emphysema (Acute) Angioedema (Acute) Superficial thrombophlebitis of arm (Acute) DVT (deep venous thrombosis) (Acute) Back pain (Acute) Medical History Arthritis Attention deficit hyperactivity disorder Chronic obstructive lung disease Tobacco dependence, continuous Surgical History Appendectomy Endoscopic Carpal Tunnel release H/O ankle fusion 4 total surgeries Repair of inguinal hernia right Family History Father Personal history of malignant neoplasm Liver CA Diabetes Paternal Uncle Alcohol abuse Maternal Uncle Alcohol abuse Sister Hypertension Other Cancer Social History Smoking/Tobacco Use Status: Current every day Tobacco: How many years used: 20 Smoking risk assessment performed?: Yes Alcohol Intake: current Alcohol Intake frequency: holidays/special occasions only Alcohol type: other Drug use: Occasionally Substance use type: marijuana Adopted: No Caregiver/Support person: No Foster care: No Household members: none Housing: apartment Number of Children: 1 Do you need help understanding health information?: Often current occupation: Disabled Sexually active: Yes Do you think of yourself as: straight/heterosexual Current gender identity: male What type of physical activity do you participate in: bicycling and additional Details: rides bike in the summer. 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 Appears stated age. Normal body habitus. Head: Normocephalic, no trauma. Eyes: Pupils PERRL, Red reflex noted, EOM's intact. Eyelids symmetrical without lesions, discharge, or swelling. ENT: Bilateral TM's WNL, External ear normal to inspection, no mastoid TTP, swelling, or erythema, Nasal turbinates WNL, no nasal discharge. Normal dentition, Posterior pharynx WNL, no exudate. Chest: RRR, Normal S1, S2, distal pulses intact. Resp: Lungs clear to auscultation bilaterally, no wheezes, rales, or rhonchi. Abdomen: Soft, non-distended, Normoactive bowel sounds all 4 quads. Musculoskeletal: Normal gait, 5/5 strength to all four extremities. Skin: No suspicious rashes or lesions. Capillary refill less than 2 sec. Neurologic: Cranial nerves II-XII intact. Alert and oriented x 3. Motor: No deficits noted. Sensory: Intact bilaterally all 4 extremities. Reflexes: DTR's intact bilaterally.. Hematologic/Lymphatic: No ecchymosis, no lymphadenopathy. Course Vital Signs Vital signs: Vital Signs Temperature 36.4 C L 03/01/22 20:48 Pulse 98 H 03/01/22 20:48 Respiratory Rate 18 03/01/22 20:48 Blood Pressure 112/77 03/01/22 20:48 Pulse Oximetry 98 03/01/22 20:48 Temperature 36.4 C L 03/01/22 20:48 Temperature Source Skin 03/01/22 20:48 Pulse 98 H 03/01/22 20:48 Respiratory Rate 18 03/01/22 20:48 Respiratory Effort Non-Labored 03/01/22 20:50 Blood Pressure 112/77 03/01/22 20:48 Pulse Oximetry 98 03/01/22 20:48 Pain Level 10 03/01/22 20:48
[2022-03-01] MEDS: HYDROmorphone 2 MG/ML VIAL 0.5 MG IM (22:09)
[2022-03-01] MEDS: Lidocaine 5% Patch 1 PATCH TP (22:10)
[2022-03-01] MEDS: diazePAM 10 MG/2 ML SYR 5 MG IM (22:10)
--- NOTE | 2022-03-01 22:54 | DI.VRAD_ITS ---
PROCEDURE INFORMATION: Exam: XR Chest Exam date and time: 03/01/2022 10:21 PM Age: 51 years old Clinical indication: Other: SOB TECHNIQUE: Imaging protocol: Radiologic exam of the chest. Views: 2 views. COMPARISON: CR XR RIBS RT W PA LAT CHEST 11/22/2020 12:59 PM FINDINGS: Lungs: Mild right greater than left lower lobe atelectatic changes. Mild peribronchial thickening present. Consider bronchitis. There is no evidence of focal pulmonary consolidation. The pulmonary vasculature is normal. Pleural spaces: There is no evidence of pneumothorax. There are no pleural effusions present. Heart/Mediastinum: The cardiac silhouette is within normal limits. The mediastinum is normal. Bones/joints: The spine, sternum, ribs, and pectoral girdles show no evidence of acute abnormality Other findings: There are no soft tissue masses or calcifications. IMPRESSION: Mild peribronchial thickening present. Consider bronchitis. Dictated and Authenticated by: Rachid Erickson MD. Ordering:MARIAELENA Hernandez MD
--- NOTE | 2022-03-01 23:05 | DI.VRAD_ITS ---
PROCEDURE INFORMATION: Exam: XR Lumbosacral Spine Exam date and time: 03/01/2022 10:26 PM Age: 51 years old Clinical indication: Other: Low back pain TECHNIQUE: Imaging protocol: Radiologic exam of the lumbosacral spine. Views: 4 or 5 views. COMPARISON: OT XR PAIN CLINIC LUMBAR SP 2V 10/08/2020 10:12 AM FINDINGS: Bones/joints: There is no evidence of compression fractures or deformities. Spinal alignment is normal. Narrowing of the intervertebral disc spaces between L3-L4, L4-L5 and L5-S1 unchanged compared to prior study of 06/30/2020. Moderate degenerative changes with anterior osteophytes sclerosis consistent with chronic degenerative changes sent stable compared to the prior study. Bilateral facet degenerative changes stable compared to prior study. The sacroiliac joints are within normal limits. Soft tissues: There are no soft tissue calcifications or masses. IMPRESSION: Stable degenerative changes of the lumbosacral spine compared to 06/30/2020 no evidence of acute fracture subluxation. Dictated and Authenticated by: Rachid Erickson MD. Ordering:MARIAELENA Hernandez MD
[2022-03-02 00:01] VITALS: BP 129/73; PULSE 93; RESP 16; TEMP 37.3; O2SAT 95
== END 2022-03-02 00:01 | disposition home or self-care (01) ==
PROVIDERS: Emergency Provider Registered Nurse Emergency; PCP Family Medicine
DX: M54.50 Low back pain, unspecified (principal); G89.29 Other chronic pain; J40 Bronchitis, not specified as acute or chronic; F17.200 Nicotine dependence, unspecified, uncomplicated
CPT/HCPCS: 96372; 99284; 71046; 72110; J3360

== ENCOUNTER 2022-04-24 09:51 | Emergency (ER) | payer MEDICARE, SELFPAY ==
[2022-04-24 10:01] VITALS: PULSE 82; RESP 20; TEMP 36.2; O2SAT 95
--- OUTSIDE RECORDS SUMMARY | 2022-04-24 10:01 | XMS_ITS | Encounter Summary ---
:1970 Author Organization [facility] Address [address] [place] [address] Care Team Providers Name Role Phone Cameron Calzada MD Primary Care Provider Encounter Details Date Type Department Care Team Description 05/28/2021 Lab Requisition [facility] Outr Resulting Lab, Pathology & Laboratory Provider [facility] [address] [place] [address] [id number] Social History Tobacco Use Types Packs/Day Years Used Date Never Assessed Sex Assigned at Date Recorded Not on file documented as of this encounter Plan of Treatment Not on filedocumented as of this encounter Procedures Procedure Name Priority Date/Time Associated Diagnosis Comme nts [facility] 05/27/2021 13:57 LAB PCR EST COVID-19 TESTING Routine 05/27/2021 13:57 Results for this EST procedure are i n the results section. documented in this encounter Results COVID-19 TEST [facility] LAB PCR (05/27/2021 13:57 EST) Specimen Swab Performing Organization Address City/State/ZIP Code Phon e Number [facility] [address] [place] [address] SERVICES COVID-19 TESTING (05/27/2021 13:57 EST) COVID-19 rt-PCR Negative Negative [facility] Result Comment: CENTER LABORATORY This test has not been FDA c leared or approved. This test has been authorized by FDA under an EUA for use by authorized laboratories. This test has been authorized only for detection of nucleic acid fro SERVICES m 2018-nCo, not for any oth er viruses or pathogens. This test is only authorized for the duration of the declaration that circumstances exist justifying the authorization of emergency use of in vitro d iagnostic tests for detectio n and/or diagnosis of 2019-nCoV under section 564(b)(1) of Act, 21 U.S.C ?? 360bbb-3(b) (1), unless the authorization is terminated or revoked sooner. Negative results do not prec lude 2019-nCoV infection and should not be used as the sole basis for treatment or other patient management decisions. Negative results must be combined with clinical observa tions, patient history, and epidemiological informatio n. Testing was performed using the yanira SARS-CoV-2 assay ([employer] on the Yanira 6800 System Performing Lab Yanira 6800 [facility] Lab [facility] SERVICES Specimen Swab Performing Organization Address City/State/ZIP Code Phon e Number [facility] [address] [place] [address] SERVICES documented in this encounter Visit Diagnoses Not on filedocumented in this encounter Care Teams [employer] Sql D[employer] Relationship Specialty Start Date End Date Cameron Calzada MD PCP - General 07/23/14 documented as of this encounter
--- OUTSIDE RECORDS SUMMARY | 2022-04-24 10:01 | XMS_ITS | Encounter Summary ---
:1970 Author Organization [facility] Address [address] [place] [address] Care Team Providers Name Role Phone Unknown, Provider Primary Care Provider Encounter Details Date Type Department Care Team Description 07/18/2014 Hospital Encounter [facility]- Josiane Unknown, Provider, [facility] [address] [place] [address] [place] [address] (Work) [phone] Social History Tobacco Use Types Packs/Day Years Used Date Never Assessed Sex Assigned at Date Recorded Not on file documented as of this encounter Discharge Disposition Disposition Code Departure Means Destination Home or Self Jail documented in this encounter Plan of Treatment Not on filedocumented as of this encounter Visit Diagnoses Not on filedocumented in this encounter Care Teams Cellular Equipment Installer Relationship Specialty Start Date End Date Unknown, Provider, PCP - General 10/22/11 07/22/14 documented as of this encounter
--- OUTSIDE RECORDS SUMMARY | 2022-04-24 10:01 | XMS_ITS | Encounter Summary ---
:1970 Author Organization [facility] Address [address] [place] [address] Care Team Providers Name Role Phone Cameron Calzada MD Primary Care Provider Encounter Details Date Type Department Care Team Description 01/04/2017 Historical Results [facility] - Monica Love, Only [facility] MD Results [address] [facility] [address] [place] [address] [phone] (Wo rk) Social History Tobacco Use Types Packs/Day Years Used Date Never Assessed Sex Assigned at Date Recorded Not on file documented as of this encounter Plan of Treatment Not on filedocumented as of this encounter Procedures Procedure Name Priority Date/Time Associated Diagnosis Comme nts XR FOOT RIGHT 3 OR 01/04/2017 20:50 Resul ts for this MORE VIEWS EDT procedure are i n the results section. XR ANKLE RIGHT 3 OR 01/04/2017 20:50 Resu lts for this MORE VIEWS EDT procedure are i n the results section. documented in this encounter Results XR ANKLE RIGHT 3 OR MORE VIEWS (01/04/2017 20:50 EDT) Specimen Narrative [facility] RADIOLOGY - 01/04/2017 20:53 EDT ? EXAM: RADIOLOGY/ANKLE RIGHT 3 + VIEW ?EX. D/ (2002) ? CLINICAL INFORMATION: ? PAIN AFTER INVERSION ? INDICATION: PAIN AT BASE OF 5TH R IGHT ANKLE INJURY ? TECHNIQUE: 3 views right foot. 3 views of the right ankle. ? COMPARISON: 12/19/2016. ? Findings: ? The patient is status post ankle and subtalar arthrodesis. 2 screws ? are present. There is approximate ly 2-3 mm of lucency surrounding ? both screws, but osseous fusion a cross the ankle and subtalar joints ? appears solid. There is also jaylan d osseous fusion across the distal ? tibiofibular syndesmosis, althoug h there is an apparent ? pseudoarthrosis just proximal to the osseous fusion. ? The midfoot joint spaces appear r elatively preserved. No acute ? fracture or acute osseous abnorma lity is detected. The 5th metatarsal ? is intact. ? IMPRESSION: ? 1. No acute fracture or acute oss eous abnormality detected. 5th ? metatarsal appears intact. ? 2. Prior ankle and hindfoot arthr odesis. Although osseous fusion ? appears solid, there is apparent circumferential lucency surrounding ? the 2 screws. Additionally, there may be a pseudoarthrosis at the ? distal fibula just proximal to th e syndesmotic fusion. These findings ? could be further assessed with CT if clinically indicated. Note that ? these findings are unchanged comp ared to 12/19/2016. ? REPORT SIGNED IN OTHER VENDOR SYSTEM 01/04/2017 ?Reported B y: Morgan Simmons MD ? CC: ? Transcribed Date/Time: 01/04/2017 (2052) ? Photo Print Specialist: ? Printed Date/Time: 12/26/2018 (17 30) ? PAGE 1 ? Alicia d Report ? Procedure Note Morgan Simmons E - 05/17/2019 EXAM: RADIOLOGY/ANKLE RIGHT 3 + VIEW EX . D/ (2002) CLINICAL INFORMATION: PAIN AFTER INVERSION INDICATION: PAIN AT BASE OF 5TH RIGHT A NKLE INJURY TECHNIQUE: 3 views right foot. 3 views of the right ankle. COMPARISON: 12/19/2016. Findings: The patient is status post ankle and velarde btalar arthrodesis. 2 screws are present. There is approximately 2-3 mm of lucency surrounding both screws, but osseous fusion across the ankle and subtalar joints appears solid. There is also solid osse ous fusion across the distal tibiofibular syndesmosis, although ther e is an apparent pseudoarthrosis just proximal to the os seous fusion. The midfoot joint spaces appear relativ roger preserved. No acute fracture or acute osseous abnormality i s detected. The 5th metatarsal is intact. IMPRESSION: 1. No acute fracture or acute osseous a bnormality detected. 5th metatarsal appears intact. 2. Prior ankle and hindfoot arthrodesis . Although osseous fusion appears solid, there is apparent circum ferential lucency surrounding the 2 screws. Additionally, there may b e a pseudoarthrosis at the distal fibula just proximal to the synd esmotic fusion. These findings could be further assessed with CT if cl inically indicated. Note that these findings are unchanged compared t o 12/19/2016. REPORT SIGNED IN OTHER VENDOR SYSTEM 01/04/2017 Reported By: Morgan Simmons MD CC: Transcribed Date/Time: 01/04/2017 (2052 ) Photo Print Specialist: Printed Date/Time: 12/26/2018 (6278) PAGE 1 Signed Report Performing Organization Address City/State/ZIP Code Phon e Number [facility] RADIOLOGY XR FOOT RIGHT 3 OR MORE VIEWS (01/04/2017 20:50 EDT) Specimen Narrative [facility] RADIOLOGY - 01/04/2017 20:53 EDT ? EXAM: RADIOLOGY/FOOT RIGHT 3+VIEW ? EX. D/ (2002) ? CLINICAL INFORMATION: ? PAIN AT BASE OF 5TH ? INDICATION: PAIN AT BASE OF 5TH R IGHT ANKLE INJURY ? TECHNIQUE: 3 views right foot. 3 views of the right ankle. ? COMPARISON: 12/19/2016. ? Findings: ? The patient is status post ankle and subtalar arthrodesis. 2 screws ? are present. There is approximate ly 2-3 mm of lucency surrounding ? both screws, but osseous fusion a cross the ankle and subtalar joints ? appears solid. There is also jaylan d osseous fusion across the distal ? tibiofibular syndesmosis, althoug h there is an apparent ? pseudoarthrosis just proximal to the osseous fusion. ? The midfoot joint spaces appear r elatively preserved. No acute ? fracture or acute osseous abnorma lity is detected. The 5th metatarsal ? is intact. ? IMPRESSION: ? 1. No acute fracture or acute oss eous abnormality detected. 5th ? metatarsal appears intact. ? 2. Prior ankle and hindfoot arthr odesis. Although osseous fusion ? appears solid, there is apparent circumferential lucency surrounding ? the 2 screws. Additionally, there may be a pseudoarthrosis at the ? distal fibula just proximal to th e syndesmotic fusion. These findings ? could be further assessed with CT if clinically indicated. Note that ? these findings are unchanged comp ared to 12/19/2016. ? REPORT SIGNED IN OTHER VENDOR SYSTEM 01/04/2017 ?Reported B y: Morgan Simmons MD ? CC: ? Transcribed Date/Time: 01/04/2017 (2052) ? Photo Print Specialist: ? Printed Date/Time: 12/26/2018 () ? PAGE 1 ? Alicia d Report ? Procedure Note Morgan Simmons E - 05/17/2019 EXAM: RADIOLOGY/FOOT RIGHT 3+VIEW EX. D / (2002) CLINICAL INFORMATION: PAIN AT BASE OF 5TH INDICATION: PAIN AT BASE OF 5TH RIGHT A NKLE INJURY TECHNIQUE: 3 views right foot. 3 views of the right ankle. COMPARISON: 12/19/2016. Findings: The patient is status post ankle and velarde btalar arthrodesis. 2 screws are present. There is approximately 2-3 mm of lucency surrounding both screws, but osseous fusion across the ankle and subtalar joints appears solid. There is also solid osse ous fusion across the distal tibiofibular syndesmosis, although ther e is an apparent pseudoarthrosis just proximal to the os seous fusion. The midfoot joint spaces appear relativ roger preserved. No acute fracture or acute osseous abnormality i s detected. The 5th metatarsal is intact. IMPRESSION: 1. No acute fracture or acute osseous a bnormality detected. 5th metatarsal appears intact. 2. Prior ankle and hindfoot arthrodesis . Although osseous fusion appears solid, there is apparent circum ferential lucency surrounding the 2 screws. Additionally, there may b e a pseudoarthrosis at the distal fibula just proximal to the synd esmotic fusion. These findings could be further assessed with CT if cl inically indicated. Note that these findings are unchanged compared t o 12/19/2016. REPORT SIGNED IN OTHER VENDOR SYSTEM 01/04/2017 Reported By: Morgan Simmons MD CC: Transcribed Date/Time: 01/04/2017 (2052 ) Photo Print Specialist: Printed Date/Time: 12/26/2018 (4900) PAGE 1 Signed Report Performing Organization Address City/State/ZIP Code Phon e Number [facility] RADIOLOGY documented in this encounter Visit Diagnoses Not on filedocumented in this encounter Care Teams Public Records Researcher Relationship Specialty Start Date End Date Cameron Calzada MD PCP - General 07/23/14 documented as of this encounter
--- OUTSIDE RECORDS SUMMARY | 2022-04-24 10:01 | XMS_ITS | Encounter Summary ---
:1970 Author Organization [facility] Address [address] [place] [address] Care Team Providers Name Role Phone None Primary Care Provider Unavailable Encounter Details Date Type Department Care Team Description 08/01/2013 Orders Only Orthopaedics at [facility] Franco Michel MD Pain in joint of left [facility] ank le or foot Drive (Primary Dx) [place] [address] ORTHOPAEDIC [phone] SURGERY [place], [place] [address] Social History Tobacco Use Types Packs/Day Years Used Date Heavy Tobacco Smoker 0.5 Smokeless Tobacco: Never Used Alcohol Use Standard Drinks/Week Comments Yes 0 (1 standard drink = 0.6 oz pure alcoho l) Rare - every 6-7 months Alcohol Habits Answer Date Recorded How often do you have a drink containing Not asked alcohol? How many drinks containing alcohol do you have Not asked on a typical day when you are drinking? How often do you have six or more drinks on one Not asked occasion? Comment: Rare - every 6-7 months 08/01/2013 Sex Assigned at Date Recorded Not on file documented as of this encounter Plan of Treatment Not on filedocumented as of this encounter Results XR ankle minimum 3 views (08/01/2013 1:35 PM EST) Anatomical Region Laterality Modality Ankle N/A Radiographic Imaging Specimen (Source) Anatomical Collection Method Collection Time Re ceived Time Location / / Volume Laterality 08/01/2013 1:35 PM EST Narrative 08/01/2013 2:04 PM EST Examination ANKLE MIN 3 VIEWS/RIGHT Clinical History left ankle pain Comparison November 2010. Technique Findings Ankle fusion and distal fibular resectio n unchanged from last examination. ??The ankle joint space is obliterated. ??No h ardware complications. ??The posterior subtalar joint space appears slightly mo re narrowed than last examination. ??No ankle effusion. Impression ? 1. Unchanged ankle fusion and dis ana fibular resection. ? 2. Osseous bridging across fusion site and no hardware complications. ? 3. Minimal progression of posteri or subtalar joint osteoarthropathy. Procedure Note Yara Stevens MD - 08/01/2013Formatt ing of this note might be different from the original. Examination ANKLE MIN 3 VIEWS/RIGHT Clinical History left ankle pain Comparison November 2010. Technique Findings Ankle fusion and distal fibular resectio n unchanged from last examination. The ankle joint space is obliterated. No andrés dware complications. The posterior subtalar joint space appears slightly mo re narrowed than last examination. No ankle effusion. Impression 1. Unchanged ankle fusion and distal fi bular resection. 2. Osseous bridging across fusion site and no hardware complications. 3. Minimal progression of posterior sub talar joint osteoarthropathy. Franco Michel MD IMG DX ORDERABLES documented in this encounter Visit Diagnoses Diagnosis Pain in joint of left ankle or foot - Pr imary Pain in joint, ankle and foot Pain in joint of left ankle or foot Pain in joint, ankle and foot documented in this encounter Care Teams Pharmaceutical Sales Specialist Relationship Specialty Start Date End Date None PCP - General 11/12/10 None documented as of this encounter
--- OUTSIDE RECORDS SUMMARY | 2022-04-24 10:01 | XMS_ITS | Encounter Summary ---
:1970 Author Organization [facility] Address [address] [place] [address] Care Team Providers Name Role Phone Unknown, Provider Primary Care Provider Encounter Details Date Type Department Care Team Description 07/18/2014 Results Only [facility] Norm Suleiman L, DO [phone] [place] [address] [place], [place] [address] (Wo rk) Social History Tobacco Use Types Packs/Day Years Used Date Never Assessed Sex Assigned at Date Recorded Not on file documented as of this encounter Plan of Treatment Not on filedocumented as of this encounter Procedures Procedure Name Priority Date/Time Associated Diagnosis Comme [facility] SURGICAL PATHOLOGY Routine 07/18/2014 22:38 Resul ts for this EST procedure are i n the results section. documented in this encounter Results SURGICAL PATHOLOGY (07/18/2014 22:38 EST) Pathology Report: SURGICAL PATHOLOGY REPORT [facility] Reports generated via electronic interface contain noy ginal data; LABORATORY however they are lacking the format of the original re port. SERVICES Caution should be taken when reading/interpreting unfo rmatted reports. Name: ? JAMES TORRES ? Accession #: ? [id number] ? : ? 1970 (Age: 43) ??M ? Collect Date: ? 07/18/2014 ? Location: ? [facility] ? Receive Date: ? 07/18/19 15 ? Provider: SULEIMAN CHAU DO Copy to: AUTUMN PADILLA MD ? Final Pathologic Diagnosis: NECK, LEFT, MASS, EXCISION: - ??Mature adipose tissue consistent with lipoma. Document reviewed and electronically signed by: Dea Murguia MD Report ??Date: 07/23/2014 14:37 By the signature above, the attending physician certif ies that he/she has personally conducted a gross and/or microscopic examin ation of the described specimens and rendered or confirmed the above diagnosi s. Specimen(s) Received: Lipoma left neck Clinical History: Lipoma of the neck Gross Description: ? Received in formalin labelled with proper patient identification (initials C, M) and lipoma left neck is an unori ented portion of irregular pink-bowman to yellow fibroadipose tissue (4.37 g, 3.4 x 2.3 x 1.5 cm). The outer surface is irregular and focally rough, with no capsule. ??The outer surface is inked black. The cut surfaces range from yellow, homogenous, and glistening to white-pink, firm, and fibrous. ??There are no areas of hemorrhage or necrosis. Soda Tester sections are submitted as 1-3. Sheri Barlow 07/19/2014 02:14 PM End of Report Specimen Performing Organization Address City/State/ZIP Code Phon e Number [facility] [address] [place] [phone] SERVICES documented in this encounter Visit Diagnoses Not on filedocumented in this encounter Care Teams Usability Engineer Relationship Specialty Start Date End Date Unknown, Provider, PCP - General 10/22/11 07/22/14 documented as of this encounter
--- OUTSIDE RECORDS SUMMARY | 2022-04-24 10:01 | XMS_ITS | Encounter Summary ---
:1970 [place] [address] Care Team Providers Name Role Phone None Primary Care Provider Unavailable Reason for Visit Reason Comments Right Ankle Fracture DOI 03/25/00 DOS 04/02/00 OR IF R Pilon FX Encounter Details Date Type Department Care Team Description 11/27/2010 Office Visit Orthopaedics at [facility] Delio Harris PA [facility] [place] [address] Ankle pain, right [facility] James Guidry MD [facility] [place] [address] (Primary Dx) [place] [address] Social History Tobacco Use Types Packs/Day Years Used Date Never Assessed Sex Assigned at Date Recorded Not on file documented as of this encounter Progress Notes Delio Harris - 11/27/2010 10:12 AM EDT Subjective: Patient ID: James Michael is a 40 y.o. male. SURGERY DATE: 02/16/2002 Actual Procedures: ANKLE FUSION /RT/REM.OF HARDWARE/6.5 SAMUEL.SCREWS Post Op Diagnosis: POST TRAUMATIC ARTHRITIS RT ANKLE HPI This is a 40yo male here for right ankle pain. Has noticed more pain in past year. Constant pain, difficulty with sleep. Unable to to tie shoes tight, causes pain. Swelling comes and goes. No known injury. Admits to limping., not using a walking stick. Patient Active Problem List Diagnoses Code ??? Right ankle pain 719.47Q ??? Adult stuttering 307.0N Current meds : none Social history: single, one child. Smokes 1ppd/15years. ETOH/one every couple of months. No illegal drugs. 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 Transfers with use of hands on chair. Ortho Exam Right ankle with edema/thickening and calf atrophy. Well healed incisions. Touch tenderness to medial/lateral and dorsal aspect of foot/ankle. Positive tinel's . Pulses 2 plus. Mild edema. No erythema. Nontender to plantar heel or forefoot. Neurologic Exam hypersentivity to touch to right foot and ankle Xrays: post arthrodesis with hardware intact Assessment and Plan:S/P Right ankle arthrodesis 2. Neuritis Discussed his exam and xrays: will try a AC boot for several weeks. Discussed proper footwear. New RX for Neurontin and small RX for Vocodin. Will f/u in 4 weeks if not improved. Encourage use of walking stick. Physician coverage today is Dr. Guidry documented in this encounter Plan of Treatment Not on filedocumented as of this encounter Visit Diagnoses Diagnosis Ankle pain, right - Primary Pain in joint, ankle and foot documented in this encounter Care Teams Hair Dryer Relationship Specialty Start Date End Date None PCP - General 11/12/10 None documented as of this encounter
--- OUTSIDE RECORDS SUMMARY | 2022-04-24 10:01 | XMS_ITS | Encounter Summary ---
:[address] [facility] Address [address] [place] [address] Care Team Providers Name Role Phone Cameron Calzada MD Primary Care Provider Encounter Details Date Type Department Care Team Description 12/19/2016 [phone] [place] [address] (Work) [place] [address] Social History Tobacco Use Types Packs/Day Years Used Date Never Assessed Sex Assigned at Date Recorded Not on file documented as of this encounter Discharge Disposition Disposition Code Departure Means Destination Home or Self [place] documented in this encounter Plan of Treatment Not on filedocumented as of this encounter Visit Diagnoses Not on filedocumented in this encounter Care Teams Risk Assessment Consultant Relationship Specialty Start Date End Date Cameron Calzada MD PCP - General 07/23/14 documented as of this encounter
--- OUTSIDE RECORDS SUMMARY | 2022-04-24 10:01 | XMS_ITS | Encounter Summary ---
:1970 Author Organization [place] [address] Care Team Providers Name Role Phone None Primary Care Provider Unavailable Reason for Referral Consultation (Routine) - Closed Specialty Diagnoses / Procedures Referred By Contact Refer red To Contact Pain Management Diagnoses Pain, joint, ankle, right Franco Michel MD [facility] [address] [place] [address] [facility] [place] [address] [place] [address] Fax: Referral ID Status Reason Start Date Expiration Date Visits V isits Requested Authorized [id number] Closed Evaluate and 01/14/2011 07/13/2011 1 1 Treat Reason for Visit Reason Comments Right Ankle Pain Encounter Details Date Type Department Care Team Description 01/14/2011 [place]Up [place] [facility] [place] Michel MD Pain, joint, ankle, [facility] right (Primary Dx) [place] [address] [address] [address] [phone] ORTHOPAEDIC SURGERY [place] [id number] Social History Tobacco Use Types Packs/Day Years Used Date Never Assessed Sex Assigned at Date Recorded Not on file documented as of this encounter Last Filed Vital Signs Vital Sign Reading Time Taken Comments Blood Pressure 131/85 01/14/2011 4:17 PM EDT Pulse 120 01/14/2011 4:17 PM EDT Temperature 36.9 ??C (98.4 ??F) 01/14/2011 4:17 PM EDT Respiratory Rate 18 01/14/2011 4:17 PM EDT Oxygen Saturation - - Inhaled Oxygen Concentration - - Weight 70.3 kg (155 lb) 01/14/2011 4:17 PM EDT Height 170.7 cm (5' 7.2) 01/14/2011 4:17 PM EDT Body Mass Index 24.13 01/14/2011 4:17 PM EDT documented in this encounter Progress Notes Franco Michel MD - 01/16/2011 6:32 PM EDT CLARIFICATION NEEDED: PLEASE FILL IN THE BLANK. SUBJECTIVE: This 40-year-old gentleman was seen here today regarding persistent right ankle pain. He sustained a right tibial pilonidal fracture in the year 1999, after having fallen off the roof. Because of the swelling, he was kept splinted for an extended period of time and then underwent open reduction and internal fixation. He had significant pain, and in 02/2002, he underwent a right ankle fusion. It has become painful, he has been using a short leg Aircast boot on and off for years. His pain is described as 10 on a scale of 10. He is well known to the department, as the fusion was performed by Dr. Guidry and he has Minal Harris previously. He is here today for evaluation, discussion, and treatment options. I evaluated the patient today. He is somewhat hypersensitive to touch. His wound has nicely healed. He has a mild swelling. There is full range of motion at the ankle. Articulation is restricted, subtalar range position is acceptable. I reviewed radiographs that shows that he is at least 80% consolidated, but quite interesting, however, is that there is no evidence of screw loosening or breakage, which mitigates to me a sort of feeling that he has completely healed. Certainly, *------* and there is no motion at the arthrodesis site. ASSESSMENT: Healed ankle fusion with pain. PLAN: I discussed the situation with the patient. I feel that he certainly would benefit from using an Enma type AFO as he could wear this with the regular sneaker. He should not wear a boot all the time. I have given him a prescription for the same. In terms of his pain, I suggested that he be evaluated by the pain center near his home. He understands our approach to this problem and will return to see us here p.r.n. documented in this encounter Plan of Treatment Scheduled Referrals Name Type Priority Associated Diagnoses Order S chedule REFERRAL TO PAIN Outpatient Referral Routine Pain, joint, ankl e, Ordered: CLINIC right 01/14/2011 documented as of this encounter Visit Diagnoses Diagnosis Pain, joint, ankle, right - Primary Pain in joint, ankle and foot documented in this encounter Care Teams Cleaner And Presser Relationship Specialty Start Date End Date None PCP - General 11/12/10 None documented as of this encounter
--- OUTSIDE RECORDS SUMMARY | 2022-04-24 10:01 | XMS_ITS | Encounter Summary ---
:1970 Author Organization [facility] Address [address] [place] [address] Care Team Providers Name Role Phone Cameron Calzada MD Primary Care Provider Encounter Details Date Type Department Care Team Description 03/16/2019 Results Only [facility], [address] [place], [place] [id number] (Wo rk) Social History Tobacco Use Types Packs/Day Years Used Date Never Assessed Sex Assigned at Date Recorded Not on file documented as of this encounter Plan of Treatment Not on filedocumented as of this encounter Procedures Procedure Name Priority Date/Time Associated Diagnosis Comme nts SURGICAL PATHOLOGY Routine 03/16/2019 16:40 Resul ts for this EDT procedure are i n the results section. documented in this encounter Results SURGICAL PATHOLOGY (03/16/2019 16:40 EDT) Pathology Report: SURGICAL PATHOLOGY REPORT [facility] Reports generated via electronic interface conta in original data; [facility] however they are lacking the format of the original re port. SERVICES Caution should be taken when reading/interpreting unfo rmatted reports. Name: ? JAMES TORRES ? Accession #: ? [id number] ? : ? 1970 (Age: [age]) ??M ? Collect Date: ? 03/16/2019 ? Location: ? [facility] ? Receive Date: ? 03/16/2019 ? Provider: ALAINA MELENDEZ DO Copy to: VON HYLTON MD ? Final Pathologic Diagnosis: A. LARYNX, VOCAL CORD, RIGHT TRUE, BIOPSY: - Vocal cord polyp, hyaline type, with reactive atypia . See comment. - Negative for dysplasia. B. VALLECULA, LEFT, BIOPSY: - Tonsillar tissue with mixed lymphoid c omponent and focal acute inflammation. See comment. - Negative for dysplasia. - PAS stain negative for fungi. C. TONSIL, FOSSA, LEFT, BIOPSY: - Tonsillar tissue with prominent lymphoid tissue (peter ctive lymphoid hyperplasia). See comment. - Negative for dysplasia. D. UVULA, RESECTION: - Uvular tissue with focal squamous atypia in ducts. S ee comment. Comment: ? Dr. Stephanie Toussaint has re viewed this case in consultation. She comments that in (D) there is focal basal atypia and focal squamous aty marck in ducts with scattered dyskeratotic cells . P16 (E6H4TM, [place]) is negative (isolated to the basal layer focally with 5% staining) (block D1) . MIB-1 (Ki67) (K2, [place]ica) is also confined to the basal layer. These findings are i nsufficient for a definitive diagnosis of dysplasia. The atypia does not extend to the deep surgical margin. Dr. Barros 03/23/2019 1:19 PM ? NOTE: ??One or more of the reagents used in imm unoperoxidase testing in this case may not have been cleared or approved by the U.S. Food and Drug Administration (FDA). ??The FDA has determined that such clearance or approval is not necessary. ??These tests are used for clinical purposes. ??They should not be regarded as investigational or for research. ??These r eagents' performance characteristics have been de termined by [facility] and/or by the referring labo bianca. ??The positive and negative controls worked appropriately. If immunopero xidase staining has been performed on alcohol fixed cytology specimens, which has not been fully validated , the assays should be interpreted with caution and correlated with clinical data. ??This laboratory is certified under the Clinical Laboratory Improvement Amendments of 1988 (CLIA-88) as qualified to perform high complexity clinical labor atory testing. ? Document reviewed and electronically signed by: JOHN SLADE MD Report ??Date: 03/23/2019 16:04 By the signature above, the attending physician certif ies that he/she has personally conducted a gross and/or microscopic examin ation of the described specimens and rendered or confirmed the above diagnosi s. Specimen(s) Received: A. ??Right true vocal cord B. ??Biopsy of left vallecula C. ??Left tonsil fossa D. ??Uvula Clinical History: History tobacco, dysphagia; multiple muc osal lesions; clinical diagnosis code: T78.3XXD, R06.89 Gross Description: A. ?Received in formalin labelled with proper p atient identification (initials C, M) and 1. Right true vocal cord is a dark brown piece of tissue that measures 0.3 x 0.1 x 0. 1 cm and a pale bowman piece of tissue that measure 0.2 x 0.1 x 0.1 cm. Submitted intact in A1. B. ?Received in formalin labelled with proper p atient identification (initials C, M) and 2. Biopsy of left vallecula are three bowman focally brown speckled pieces of tissue that measure 0.4 x 0.3 x 0.2 cm, 0.3 x 0.2 x 0.1 cm and 0.2 x 0.1 x 0.1 cm. Submitted intact and B1. C. ?Received in formalin labelled with proper p atient identification (initials C, M) and 3. Left tonsil fossa are two bowman, focally dark bowman pieces of tissue that measure 0.8 x 0.5 x 0.4 cm and 0.6 x 0.5 x 0.3 cm. Both pieces of tissue are bisected and entirely submitted in C1 and C 2. D. ?Received in formalin labelled with proper p atient identification (initials C, M) and 4. Uvul a is an oblong mucosal covered firm piece of tissue that measures 1.9 x 1.5 x 1. 3 cm with a resection margin that measures 1.5 x 1.0 cm. The mucosa is generally smooth and b lue bowman. The margin is inked blue, the specimen is quadrisected revealing a bowman focally hemorrhagic soft cut surface. The specimen is entirely submitted with the two central sections in D1 and D2 while the two ends are submitted in D3 and D4, reverse en face. CAM Esparza ([facility]) 03/17/2019 9:37 AM End of Report Specimen Performing Organization Address City/State/ZIP Code Phon e Number [facility] [address] [place] [address] SERVICES documented in this encounter Visit Diagnoses Not on filedocumented in this encounter Care Teams Over Short And Damage Clerk Relationship Specialty Start Date End Date Cameron Calzada MD PCP - General 07/23/14 documented as of this encounter
--- OUTSIDE RECORDS SUMMARY | 2022-04-24 10:01 | XMS_ITS | Encounter Summary ---
:1970 [place] [address] Care Team Providers Name Role Phone None Primary Care Provider Unavailable Reason for Visit Reason Onset Date Comments Medication Refill 11/27/2010 Encounter Details Date Type Department Care Team Description 11/27/2010 Refill Orthopaedics at [facility] Delio Harris PA [facility] [place] [address] [place] [phone] ORTHOPAEDIC SURGERY [phone] [place], [place] [address] (Wo rk) Social History Tobacco Use Types Packs/Day Years Used Date Never Assessed Sex Assigned at Date Recorded Not on file documented as of this encounter Miscellaneous Notes Telephone Encounter - Giuseppe Reno RN - 11/27/2010 4:13 PM EDT Called and clarified order with pharmacist documented in this encounter Plan of Treatment Not on filedocumented as of this encounter Visit Diagnoses Not on filedocumented in this encounter Care Teams Die Assembler Relationship Specialty Start Date End Date None PCP - General 11/12/10 None documented as of this encounter
--- OUTSIDE RECORDS SUMMARY | 2022-04-24 10:01 | XMS_ITS | Encounter Summary ---
:1970 [place] [address] Care Team Providers Name Role Phone None Primary Care Provider Unavailable Encounter Details Date Type Department Care Team Description 11/12/2010 Orders Only Orthopaedics at [facility] Delio Harris Ankle pain (Primary [facility] CAM Olvera Dx) [place] [address] ORTHOPAEDIC SURGERY [place], [place] [address] Social History Tobacco Use Types Packs/Day Years Used Date Never Assessed Sex Assigned at Date Recorded Not on file documented as of this encounter Plan of Treatment Not on filedocumented as of this encounter Results XR ankle minimum 3 views (11/27/2010 9:06 AM EDT) Anatomical Region Laterality Modality Ankle N/A Radiographic Imaging Specimen (Source) Anatomical Collection Method Collection Time Re ceived Time Location / / Volume Laterality 11/27/2010 9:06 AM EDT Impressions 11/27/2010 10:18 PM EDT IMPRESSION: ?? Solid ankle fusion and no hardware failu re. Narrative 11/27/2010 10:18 PM EDT RIGHT ANKLE, THREE IMAGES, 11/27/10: ?? HISTORY: ??Fusion followup. ?? COMPARISON STUDY: ??January 17, 2007. ?? FINDINGS: ??Solid ankle fusion with two screws. ??The tibiotalar joint space is obliterated. ??The distal fibula, deform ed with postsurgical changes appears to be incorporated in the fusion bone edith s. ??No radiolucencies around the fusion screws. ??No large effusion. ?? Ghost tracks in the posterior calcaneus. ?? Procedure Note Yara Stevens MD - 11/27/2010Formatt ing of this note might be different from the original. RIGHT ANKLE, THREE IMAGES, 11/27/10: HISTORY: Fusion followup. COMPARISON STUDY: January 17, 2007. FINDINGS: Solid ankle fusion with two sc rews. The tibiotalar joint space is obliterated. The distal fibula, deformed with postsurgical changes appears to be incorporated in the fusion bone edith s. No radiolucencies around the fusion screws. No large effusion. Ghost tracks in the posterior calcaneus. IMPRESSION IMPRESSION: Solid ankle fusion and no hardware failu re. James Guidry MD IMG DX ORDERABLES documented in this encounter Visit Diagnoses Diagnosis Ankle pain - Primary Pain in joint, ankle and foot Ankle pain Pain in joint, ankle and foot documented in this encounter Care Teams Auditing Specialist Relationship Specialty Start Date End Date None PCP - General 11/12/10 None documented as of this encounter
--- OUTSIDE RECORDS SUMMARY | 2022-04-24 10:01 | XMS_ITS | Encounter Summary ---
:1970 Author Organization [facility] Address [address] [place] [address] Care Team Providers Name Role Phone Cameron Calzada MD Primary Care Provider Encounter Details Date Type Department Care Team Description 03/16/2019 Hospital Encounter [facility]- Josiane Unknown, Provider, [facility] [address] [facility] [phone] [place] [address] (Work) [phone] Social History Tobacco Use Types Packs/Day Years Used Date Never Assessed Sex Assigned at Date Recorded Not on file documented as of this encounter Discharge Disposition Disposition Code Departure Means Destination Home or Self [facility] documented in this encounter Plan of Treatment Not on filedocumented as of this encounter Visit Diagnoses Not on filedocumented in this encounter Care Teams Mechanical Developer Prover Relationship Specialty Start Date End Date Cameron Calzada MD PCP - General 07/23/14 documented as of this encounter
--- OUTSIDE RECORDS SUMMARY | 2022-04-24 10:01 | XMS_ITS | Encounter Summary ---
:1970 Author Organization [facility] Address [address] [place] [address] Care Team Providers Name Role Phone Cameron Calzada MD Primary Care Provider Encounter Details Date Type Department Care Team Description 04/09/2020 Lab Requisition [facility] Outr Resulting Lab, Pathology & Laboratory Provider [facility] [address] [place], [place] [address] Social History Tobacco Use Types Packs/Day Years Used Date Never Assessed Sex Assigned at Date Recorded Not on file documented as of this encounter Plan of Treatment Not on filedocumented as of this encounter Procedures Procedure Name Priority Date/Time Associated Diagnosis Comme nts HEPATITIS C AB W Routine 04/08/2020 19:08 Results for this REFLEX TO HCV RNA EDT procedure are in BY PCR the results section. documented in this encounter Results HEPATITIS C AB W REFLEX TO HCV RNA BY PCR (04/08/2020 19:08 EDT) Pathologist Sig nature Hep C Antibody Negative Negative [facility] Specimen Blood - Venous blood (substance) Performing Organization Address City/State/ZIP Code Phon e Number [facility] [address] [place] [address] SERVICES documented in this encounter Visit Diagnoses Not on filedocumented in this encounter Care Teams Oil Well Perforator Operator Relationship Specialty Start Date End Date Cameron Calzada MD PCP - General 07/23/14 documented as of this encounter
--- OUTSIDE RECORDS SUMMARY | 2022-04-24 10:01 | XMS_ITS | Encounter Summary ---
:1970 Author Organization [facility] Address [address] [facility] [place] [address] Care Team Providers Name Role Phone None Primary Care Provider Unavailable Encounter Details Date Type Department Care Team Description 08/01/2013 Hospital Encounter XRay at [facility] Pain in joint of right [address] [facility] [address] ankle or foot [place] [phone] Social History Tobacco Use Types Packs/Day [...] on file documented as of this encounter Medications at Time of Discharge Medication Sig Dispensed Refills Start Date End Date promethazine (PHENERGAN) Take 1 tablet by 20 tablet 0 08/0108/08/2013 25 mg tablet mouth nightly as needed for Nausea (Take about 9 p.m. to help with sleep each night. Take only if needed.) for 7 days. documented as of this encounter Procedure Notes Floyd Sanchez MD - 08/01/2013 4:34 PM ESTProcedure(s): ARTHROCENTESIS,DRAIN/INJECT JOINT/BURSA Pre-Procedure Diagnose(s): Right ankle pain James Michael [id number] HISTORY: Pain right Subtalar joint Right subtalar JOINT INJECTION UNDER FLUOROSCOPY TECHNIQUE: After an extensive conversation with the patient regarding risks and benefits, oral and written consent were obtained. The patient was placed lateral left decubitus on the fluoroscopic table. The skin overlying the right subtalar joint was prepped and draped in the usual aseptic manner. 1% Lidocaine was used to achieve local anesthesia. Under fluoroscopic guidance, a 25 gauge needle was advanced intothe joint space. Small amount of contrast was injected to the document needle placement. A mixture of Ropivacaine and depomedrol was injected. All needles removed at end of procedure. FINDINGS: 1. Small amount of injected contrast in the joint space. 2. PAIN SCORE: Before: 9 /10 After: 5 /10 3. Medications: Lidocaine 1% - <5 ml, for subcutaneous anesthesia Ropivacaine HCL 0.5% - 1 ml (5mg), Depomedrol: 20 mg, Omnipaque 300 - 1ml Fluoroscopy time: 61 sec COMPLICATIONS: None immediate. POST-PROCEDURE CARE: Information regarding monitor of infection, post- procedural pain and management of steroid flare were reviewed with patient. IMPRESSION: Uneventful Right subtalar joint injection under fluoroscopy. Attending: FLOYD SANCHEZ MD documented in this encounter Plan of Treatment Not on filedocumented as of this encounter Procedures Procedure Name Priority Date/Time Associated Diagnosis Comme nts XR FLUORO Routine 08/01/2013 4:22 PM Pain in joint, ankle R esults for this INJECTION/DRAINAGE EST and foot procedure are in MEDIUM JOINT the results section. documented in this encounter Results XR Fluoro injection/drainage medium joint (08/01/2013 4:22 PM EST) Anatomical Region Laterality Modality N/A Radiographic Imaging Specimen (Source) Anatomical Collection Method Collection Time Re ceived Time Location / / Volume Laterality 08/01/2013 4:22 PM EST Impressions 08/02/2013 1:08 PM EST IMPRESSION: ?? Uneventful Right subtalar joint injectio n under fluoroscopy. ?? Attending: FLOYD SANCHEZ MD Narrative 08/02/2013 1:08 PM EST Right subtalar JOINT INJECTION UNDER FLUOROSCOPY ?? TECHNIQUE: ?? After an extensive conversation with the patient regarding risks and benefits, oral and written consent were obtained. The patient was placed lateral left decubitus on the fluoroscopic table. The skin overlying the right subtalar joint was prepped and draped in the usua l aseptic manner. 1% Lidocaine was used to achieve local anesthesia. Under fluor oscopic guidance, a 25 gauge needle was advanced into the joint space. Small jovita unt of contrast was injected to the document needle placement. A mixture of Ropivacaine and depomedrol was injected. All needles removed at end of procedure. ?? FINDINGS: ?? 1. Small amount of injected contrast in the joint space. ?? 2. PAIN SCORE: ?? Before: 9 /10 ?? After: ?? 3. Medications: ?? Lidocaine 1% - <5 ml, for subcutaneous a nesthesia ?? Ropivacaine HCL 0.5% - 1 ml (5mg), ?? Depomedrol: 20 mg, ?? Omnipaque 300 - 1ml ?? Fluoroscopy time: 61 sec ?? COMPLICATIONS: None immediate. ?? POST-PROCEDURE CARE: Information regardi ng monitor of infection, post- procedural pain and management of steroi d flare were reviewed with patient. ?? Procedure Note Floyd Sanchez MD - 08/02/2013Forma tting of this note might be different from the original. Right subtalar JOINT INJECTION UNDER FLU OROSCOPY TECHNIQUE: After an extensive conversation with the patient regarding risks and benefits, oral and written consent were obtained. The patient was placed lateral left decubitus on the fluoroscopic table. The skin overlying the right subtalar joint was prepped and draped in the usua l aseptic manner. 1% Lidocaine was used to achieve local anesthesia. Under fluor oscopic guidance, a 25 gauge needle was advanced into the joint space. Small jovita unt of contrast was injected to the document needle placement. A mixture of Ropivacaine and depomedrol was injected. All needles removed at end of procedure. FINDINGS: 1. Small amount of injected contrast in the joint space. 2. PAIN SCORE: Before: 9 /10 After: 3. Medications: Lidocaine 1% - <5 ml, for subcutaneous a nesthesia Ropivacaine HCL 0.5% - 1 ml (5mg), Depomedrol: 20 mg, Omnipaque 300 - 1ml Fluoroscopy time: 61 sec COMPLICATIONS: None immediate. POST-PROCEDURE CARE: Information regardi ng monitor of infection, post- procedural pain and management of steroi d flare were reviewed with patient. IMPRESSION IMPRESSION: Uneventful Right subtalar joint injectio n under fluoroscopy. Attending: FLOYD SANCHEZ MD Franco Michel MD IMG FLUORO ORDERABLES documented in this encounter Visit Diagnoses Diagnosis Pain in joint of right ankle or foot Pain in joint, ankle and foot documented in this encounter Administered Medications Inactive Administered Medications - up to 3 most recent administrations Medication Order MAR Action Action Date Dose Rate Site ropivacaine (PF) 5 mg/mL (0.5 %) 4 Given 08/01/2013 4:45 PM EST mL with methylprednisolone acetate 40 mg injection Intra-articular, ONCE, 1 dose, On Wed08/01/13 at 1645 documented in this encounter Care Teams Crusher Setter Relationship Specialty Start Date End Date None PCP - General 11/12/10 None documented as of this encounter
--- OUTSIDE RECORDS SUMMARY | 2022-04-24 10:01 | XMS_ITS | Encounter Summary ---
:1970 Author Organization [facility] Address [address] [place] [address] Care Team Providers Name Role Phone Cameron Calzada MD Primary Care Provider Encounter Details Date Type Department Care Team Description 12/19/2016 Historical Results [facility] - Toni Aceves MD Only [facility] Radiology Resul ts [address] [facility] [address] [place] [phone] Social History Tobacco Use Types Packs/Day Years Used Date Never Assessed Sex Assigned at Date Recorded Not on file documented as of this encounter Plan of Treatment Not on filedocumented as of this encounter Procedures Procedure Name Priority Date/Time Associated Diagnosis Comme nts XR ANKLE RIGHT 3 OR 12/19/2016 18:46 Resu lts for this MORE VIEWS EDT procedure are i n the results section. documented in this encounter Results XR ANKLE RIGHT 3 OR MORE VIEWS (12/19/2016 18:46 EDT) Specimen Narrative [facility] - 12/19/2016 18:46 EDT ? EXAM: RADIOLOGY/ANKLE RIGHT 3 + VIEW ?EX. D/ (1837) ? CLINICAL INFORMATION: ? STEPPED IN TO HOLE ? EXAM: ? XR Right Ankle Complete, 3 or More Views ? CLINICAL HISTORY: ? 46 years old, male; Pain; Ankl e; Right; Prior surgery; Surgery ? date: 6+ months; Surgery type: Fu rosemarie screws; Additional info: ? Stepped in to hole ? TECHNIQUE: ? Frontal, lateral and oblique v iews of the right ankle. ? COMPARISON: ? No relevant prior studies avgeoff lable. ? FINDINGS: ? Bones/joints: ??Metallic fixat ion and fusion of the distal ? tibia, talus and calcaneus with a ssociated bony fusion also ? including the talofibular joint. ??No obvious acute fracture or ? radiopaque foreign body. ? Soft tissues: ??Unremarkable. ? IMPRESSION: ? 1. ??Metallic fixation and fusion of the distal tibia, talus and ? calcaneus with associated bony fu rosemarie also including the ? talofibular joint. ? 2. ??No obvious acute fracture or radiopaque foreign body. ? REPORT SIGNED IN OTHER VENDOR SYSTEM 12/19/2016 ?Reported B y: James Savage MD ? CC: ? Transcribed Date/Time: 12/19/2016 (1846) ? Rental Sales Agent: ? Printed Date/Time: 12/26/2018 (17 30) ? PAGE 1 ? Alicia d Report ? Procedure Note James Savage MD - 05/17/2019 EXAM: RADIOLOGY/ANKLE RIGHT 3 + VIEW EX . D/ (1837) CLINICAL INFORMATION: STEPPED IN TO HOLE EXAM: XR Right Ankle Complete, 3 or More View s CLINICAL HISTORY: 46 years old, male; Pain; Ankle; Right; Prior surgery; Surgery date: 6+ months; Surgery type: Fusion s crews; Additional info: Stepped in to hole TECHNIQUE: Frontal, lateral and oblique views of t he right ankle. COMPARISON: No relevant prior studies available. FINDINGS: Bones/joints: Metallic fixation and fus ion of the distal tibia, talus and calcaneus with associa liane bony fusion also including the talofibular joint. No obv ious acute fracture or radiopaque foreign body. Soft tissues: Unremarkable. IMPRESSION: 1. Metallic fixation and fusion of the distal tibia, talus and calcaneus with associated bony fusion a lso including the talofibular joint. 2. No obvious acute fracture or radiopa que foreign body. REPORT SIGNED IN OTHER VENDOR SYSTEM 12/19/2016 Reported By: James Savage MD CC: Transcribed Date/Time: 12/19/2016 (2996 ) Rental Sales Agent: Printed Date/Time: 12/26/2018 (1816) PAGE 1 Signed Report Performing Organization Address City/State/ZIP Code Phon e Number [facility] documented in this encounter Visit Diagnoses Not on filedocumented in this encounter Care Teams Entry Level Account Manager Relationship Specialty Start Date End Date Cameron Calzada MD PCP - General 07/23/14 documented as of this encounter
--- OUTSIDE RECORDS SUMMARY | 2022-04-24 10:01 | XMS_ITS | Encounter Summary ---
:1970 Author Organization [facility] Address [address] [place] [address] Care Team Providers Name Role Phone Cameron Calzada MD Primary Care Provider Encounter Details Date Type Department Care Team Description 04/09/2020 Lab Requisition [facility] Outr Resulting Lab, Pathology & Laboratory Provider [facility] [address] [place] [address] Social History Tobacco Use Types Packs/Day Years Used Date Never Assessed Sex Assigned at Date Recorded Not on file documented as of this encounter Plan of Treatment Not on filedocumented as of this encounter Procedures Procedure Name Priority Date/Time Associated Comments Diagnosis CHLAMYDIA/N. Routine 04/08/2020 19:08 Results for this GONORRHOEAE AMPLIFIED EDT proced ure are in RNA the results section. documented in this encounter Results CHLAMYDIA/N. GONORRHOEAE AMPLIFIED RNA (04/08/2020 19:08 EDT) Pathologist Sig nature Gonococcus Result Negative Negative [facility] Chlamydia Result Negative Negative [facility] Specimen Urine - Urine, Initial Void Performing Organization Address City/State/ZIP Code Phon e Number [facility] [address] [place] [address] SERVICES documented in this encounter Visit Diagnoses Not on filedocumented in this encounter Care Teams Retention Specialist Relationship Specialty Start Date End Date Cameron Calzada MD PCP - General 07/23/14 documented as of this encounter
--- OUTSIDE RECORDS SUMMARY | 2022-04-24 10:01 | XMS_ITS | Encounter Summary ---
:1970 Author Organization [facility] Address [address] [place] [address] Care Team Providers Name Role Phone None Primary Care Provider Unavailable Reason for Referral Consultation (Routine) - Closed Specialty Diagnoses / Procedures Referred By Contact Refer red To Contact Pain Management Diagnoses Pain in joint of right ankle or foot Gayle Chaves APRN [facility] Fide Zhang [place] [address] Referral ID Status Reason Start Date Expiration Date Visits V isits Requested Authorized [id number] Closed Consult, 08/01/2013 01/28/2014 1 1 Test & Treat Reason for Visit Reason Comments Right Ankle Pain s/p fusion DOS 2000 Encounter Details Date Type Department Care Team Description 08/01/2013 Office Visit Orthopaedics at [facility], DR HAYES Pain in joint of [facility] Gayle Chaves APRN [facility] [place] [address] [address] or foot [address] (Primary Dx) [place] [phone] Social History Tobacco Use Types Packs/Day [...] Sign Reading Time Taken Comments Blood Pressure 137/87 08/01/2013 1:39 PM EST Pulse 76 08/01/2013 1:39 PM EST Temperature 34.7 ??C (94.5 ??F) 08/01/2013 1:39 PM EST Respiratory Rate - - Oxygen Saturation - - Inhaled Oxygen Concentration - - Weight - - Height - - Body Mass Index - - documented in this encounter Progress Notes Monica-Jenise, Gayle Mendoza, COCONUT COOKER - 08/01/2013 2:00 PM EST PATIENT NAME: James Michael AGE: 42 y.o. MR#: [id number] DATE OF VISIT: 08/01/2013 DATE OF INJURY: 03/25/2000 STAFF: Anand CHIEF COMPLAINT: Acute on Chronic right ankle pain. HISTORY OF PRESENT ILLNESS Mr. Michael a 42 y.o. year old male who was last seen by Niraj Harris [id number]. At that visit Niraj recommended an Enma brace for his chronic right ankle pain. He obtained the brace but has not been wearing it all the time as it does not fit in some of his shoes, specifically work boots. He has had some degree of fluctuating right ankle pain, medial more than lateral for the past decade. He was on an even keel taking nothing for pain even though he has pain when he suffered a fresh injury. He inverted the right ankle stepping on a short stump in his front yard. He had immediate pain. The pain localizes at the medial joint line but radiates up to the mid medial tibia. His lateral pain is also at the joint line but less so. He denies any numbness or tingling but sensation is diminishedon the right foot/ankle compared to the left foot in a stocking like distribution. He has worn his old [employer] walker boot for 1+ months now and reports here with new x-rays due to pain and inability to sleep. USUAL SHOE WEAR: Aircast walker boot for past month on the right side, prior to that lace up work boots without steel toes. TIME ON FEET PER DAY: he states that he spends very little time on his feet each day. LAST HGB A1C: No results found for this basename: HA1C:* in the last 7068 hours PAST MEDICAL HISTORY: Patient Active Problem List Diagnosis Code ??? Right ankle pain 719.47 ??? Adult stuttering 307.0 PAST SURGICAL HISTORY: No past surgical history on file. PERTINENT FOOT/ANKLE SURGICAL HISTORY: Right ankle fusion by Dr. Guidry in 2001 after right ankle fracture from 20 foot fall off roof in 1999. 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 No current outpatient prescriptions on file prior to visit. ROS: Negative for chest pain, shortness of breath, night sweats, night pain, infections, rashes, difficulty with urination, headaches, LOC or falls, recent weight loss or gain, difficulty with anesthesia. PHYSICAL EXAM: Blood pressure 137/87, pulse 76, temperature 34.7 ??C (94.5 ??F), temperature source Oral. General: alert and oriented. He appears in no acute discomfort and is resting comfortably in a chairin the exam room. he reports here alone. Foot Exam Inspection: ?? Standing alignment reveals a flattened arch on the right foot with a thickened ankle, old healed pin site on medial ankle well healed. ?? Skin: hair is present in a normal distribution on the toes/ LE's. ?? Presence of ulcers at these sites: none ?? Presence of callous at these sites:none ?? Effusion: very mild ?? Deformity: none ?? Gait: uneven and antalgic in aircast walker boot on the right side Palpation: ?? Focal Tenderness: encircling right joint line ?? Non-tender to Achilles, Peroneal and Posterior tibial tendons. ROM: Affected side 1st MTP Joint: Dorsiflexion: 30 deg Plantar Flexion: 20 deg ROM: Ankle: Dorsiflexion in FE: Right neutral Left 5 Dorsiflexion with knee flexed Right 0 Left 8 Plantar Flexion: Right forefoot only 10 degrees Left 40 Motor strength Ankle Dorsioflexion: Left 5/5 Right cannot do/5 Ankle Plantar Flexion: Left 5/5 Right cannot do/5 Eversion: Left 5/5 Right cannot do/5 Inversion: Left 5/5 Right cannot do/5 Neurovascular Evaluation DP and TP pulses are 2+ The patient sensation is intact but diminished in the sural, deep peroneal, superficial peroneal nerve distributions. RADIOLOGICAL STUDIES: X-rays today per the Radiologist reveal: Findings Ankle fusion and distal fibular resection unchanged from last examination. The ankle joint space is obliterated. No hardware complications. The posterior subtalar joint space appears slightly more narrowed than last examination. No ankle effusion. Impression 1. Unchanged ankle fusion and distal fibular resection. 2. Osseous bridging across fusion site and no hardware complications. 3. 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 ASSESSMENT: Acute on chronic right ankle pain. PLAN: Dr. Michel joined me in the room and is aware of the patient's clinical history. He has reviewed the patient's x-ray with him today. He recommends the followin. The patient may be continue in his [employer] walker boot for now. 2. He may pursue another Enma brace, he believes that he may have thrown is old one out. I offered to give him a new prescription for one But he wants to wait on that for now, he will let us know if he decides to get one. 3. We set him up to have the right subtalar joint injected under Fluoro in radiology when a spot is available. 4. We have given him a referral to a pain clinic in the [facility] area to assess a medication plan for him. He is willing to go. We did Not give him any narcotics today. We did however give him a Rx for Phenergan to take at HS prn, 25mg PO. He will use them Sparingly and discuss his pain as well as his poor sleep with the pain clinic staff when he meets with them. 5. He will return to clinic to see us on a prn basis. documented in this encounter Miscellaneous Notes Miscellaneous - Provider, Scanning - 08/04/2013 11:30 AM EST Miscellaneous - Provider, Scanning - 08/04/2013 11:30 AM EST documented in this encounter Plan of Treatment Scheduled Referrals Name Type Priority Associated Diagnoses Order S chedule Referral to Pain Outpatient Referral Routine Pain in joint of Ordered: Clinic right ankle or foot 08/01/19 14 documented as of this encounter Visit Diagnoses Diagnosis Pain in joint of right ankle or foot - P rimary Pain in joint, ankle and foot documented in this encounter Care Teams Business Consult Relationship Specialty Start Date End Date None PCP - General 11/12/10 None documented as of this encounter
--- OUTSIDE RECORDS SUMMARY | 2022-04-24 10:01 | XMS_ITS | Encounter Summary ---
:1970 Author Organization [facility] Address [place] [address] Care Team Providers Name Role Phone None Primary Care Provider Unavailable Encounter Details Date Type Department Care Team Description 11/27/2010 Hospital Encounter XRay at [facility] Ankle pain [address] [place] [address] [place] [phone] Social History Tobacco Use Types Packs/Day Years Used Date Never Assessed Sex Assigned at Date Recorded Not on file documented as of this encounter Medications at Time of Discharge Medication Sig Dispensed Refills Start Date End Date hydroCODone-acetaminophen Take 1 tablet by 30 tablet 0 11/0912/07/2010 (VICODIN) 5-500 mg per mouth every 6 hours tabletIndications: Ankle as needed for Pain pain, right for 10 days. gabapentin (NEURONTIN) Take 1 tablet by mouth 3 times daily. 90 tab let 12 11/27/2010 11/27/2011 600 mg tabletIndications: Ankle pain, right documented as of this encounter Plan of Treatment Not on filedocumented as of this encounter Procedures Procedure Name Priority Date/Time Associated Diagnosis Comme nts XR ANKLE MINIMUM 3 Routine 11/27/2010 9:06 AM Ankle pain Res ults for this VIEWS EDT procedure are i n the results section. documented in this encounter Results XR ankle minimum 3 [...] this encounter Visit Diagnoses Diagnosis Ankle pain Pain in joint, ankle and foot documented in this encounter Care Teams Manual Tester Relationship Specialty Start Date End Date None PCP - General 11/12/10 None documented as of this encounter
--- OUTSIDE RECORDS SUMMARY | 2022-04-24 10:01 | XMS_ITS | Encounter Summary ---
:1970 Author Organization [facility] Address [address] [place] [address] Care Team Providers Name Role Phone None Primary Care Provider Unavailable Encounter Details Date Type Department Care Team Description 08/01/2013 Hospital Encounter XRay at [facility] Pain in joint of left [address] ankle or foot [place] [phone] Social History Tobacco Use Types Packs/Day [...] 7 days. documented as of this encounter Plan of Treatment Not on filedocumented as of this encounter Procedures Procedure Name Priority Date/Time Associated Diagnosis Comme nts XR ANKLE MINIMUM 3 Routine 08/01/2013 1:35 PM Pain in joint of Results for this VIEWS EST left ankle or foot procedure are in the results section. documented in this encounter [...] foot documented in this encounter Care Teams Rn Gastroenterology Relationship Specialty Start Date End Date None PCP - General 11/12/10 None documented as of this encounter
--- OUTSIDE RECORDS SUMMARY | 2022-04-24 10:01 | XMS_ITS | Encounter Summary ---
:1970 Author Organization [facility] Address [address] [place] [address] Care Team Providers Name Role Phone Unavailable Primary Care Provider Unavailable Encounter Details Date Type Department Care Team Description 10/20/2011 Results Only [facility] Norm Suleiman Fuentes, DO [phone] [facility] [facility] [place], [place] [address] (Wo rk) Social History Tobacco Use Types Packs/Day Years Used Date Never Assessed Sex Assigned at Date Recorded Not on file documented as of this encounter Plan of Treatment Not on filedocumented as of this encounter Procedures Procedure Name Priority Date/Time Associated Diagnosis Comme [facility] SURGICAL PATHOLOGY Routine 10/20/2011 0:00 EDT Re sults for this procedure are i n the results section. documented in this encounter Results SURGICAL PATHOLOGY (10/20/2011 0:00 EDT) Pathology Report: SURGICAL PATHOLOGY REPORT DELANO BOURNE Reports generated via electronic interface contain noy ginal data; LAB however they are lacking the format of the original re port. Caution should be taken when reading/interpreting unfo rmatted reports. Name: ? JAMES TORRES ? Accession #: ? [id number] ? : ? 1970 (Age: 41) ??M ? Collect Date: ? 10/20/2011 ? Location: ? [facility] ? Receive Date: ? 012 ? Provider: SULEIMAN CHAU DO Copy to: NANCY FRANKS MD ? Final Pathologic Diagnosis: ? Appendix, appendectomy: - Acute appendicitis, periappendicitis, and acute sero sitis. ?? Document reviewed and electronically signed by: MYCHAL PAPPAS MD Report ??Date: 10/22/2011 15:31 By the signature above, the attending physician certif ies that he/she has personally conducted a gross and/or microscopic examin ation of the described specimens and rendered or confirmed the above diagnosi s. Specimen(s) Received: ? Appendix Clinical History: ? Appendicitis Gross Description: ? Received in formalin labelled James Torres and appendix is a 7.0 cm in length by 1.0 cm in average diameter vermiform appe ndix, received stapled closed at the margin of resection and with abundant at tached light yellow, lobulated and indurated adip ose tissue. ??The margin is inked black. ??The serosa is barker-bowman, dusky, and slightly roughened with a moderate amount of adherent barker-bowman, fibrinopurulent exudate. ??Sectioning reveal s a bowman wall with a thickness ranging from 0.2 t o 0.4 cm and with no discernible perforations. ??The lumen ranges from pinpoint to 0.3 cm and contains soft , barker-brown fecal material but no fecaliths. ??Representat amaris sections are submitted in a single cassette. ??(Liberty Savage/[facility] End of Report Specimen Performing Organization Address City/State/ZIP Code Phon e Number [facility] [address] [place] [address] SERVICES [facility] [address] [place] [phone] documented in this encounter Visit Diagnoses Not on filedocumented in this encounter
--- OUTSIDE RECORDS SUMMARY | 2022-04-24 10:01 | XMS_ITS | Clinical Summary ---
:1970 Author Organization [facility] Address [address] [place] [address] Care Team Providers Name Role Phone Cameron Calzada MD Primary Care Provider Social History Tobacco Use Types Packs/Day Years Used Date Never Assessed Sex Assigned at Date Recorded Not on file Plan of Treatment Not on file Care Teams Emotional Support Teacher Relationship Specialty Start Date End Date Cameron Calzada MD PCP - General 07/23/14
--- OUTSIDE RECORDS SUMMARY | 2022-04-24 10:01 | XMS_ITS | Encounter Summary ---
:[address] [facility] Address [address] [place] [address] Care Team Providers Name Role Phone Cameron Calzada MD Primary Care Provider Encounter Details Date Type Department Care Team Description 04/09/2020 Lab Requisition [facility] Outr Resulting Lab, Pathology & Laboratory Provider [facility] [address] [place], [place] [address] Social History Tobacco Use Types Packs/Day Years Used Date Never Assessed Sex Assigned at Date Recorded Not on file documented as of this encounter Plan of Treatment Not on filedocumented as of this encounter Procedures Procedure Name Priority Date/Time Associated Comments Diagnosis HIV 1/2 ANTIGEN AND Routine 04/08/2020 19:08 Resu lts for this ANTIBODY, 4TH EDT procedure are in GENERATION the results section. documented in this encounter Results HIV 1/2 ANTIGEN AND ANTIBODY, 4TH GENERATION (04/08/2020 19:08 EDT) HIV 1 and 2 Negative Negative [facility] Antibody/p24 Comment: LABORATORY Antigen, 4th If acute HIV-1 infection is suspected in a high risk ??patient, submit plasma specimen for HIV-1 RNA quantitation test. SERV ICES Generation Fourth Generation assay performed on the Siemens [facility]. Specimen Blood - Venous blood (substance) Performing Organization Address City/State/ZIP Code Phon e Number [facility] [address] [place] [address] SERVICES documented in this encounter Visit Diagnoses Not on filedocumented in this encounter Care Teams Apprentice Carpenter Relationship Specialty Start Date End Date Cameron Calzada MD PCP - General 07/23/14 documented as of this encounter
--- NOTE | 2022-04-24 10:21 | W.ED.GENAD ---
Discharge Plan Disposition Patient Disposition: HOME Condition: Stable Discharge Details Clinical Impression: Acute right otitis media Primary Care Provider: [facility] ED Provider: Cesar Fitzpatrick Home Meds and New Rx's Prescriptions: New amoxicillin-pot clavulanate 875-125 mg tablet 1 tab PO BID 7 Days Qty: 14 0RF ibuprofen [IBU] 600 mg tablet 600 mg PO QID PRN (Reason: pain) Qty: 20 0RF No Action hydrocodone-acetaminophen 5-325 mg tablet 1 tab PO .COMPLEX MDD 17.5 mg PRN (Reason: pain) Qty: 91 0RF Rx Instructions: t1 tab tid, may take occassional extra 1/2 tab prn qhs up to 14 nights per month; hydrocodone-acetaminophen 5-325 mg tablet 1 tab PO .COMPLEX MDD 17.5 mg PRN (Reason: pain) Qty: 91 0RF Rx Instructions: 1 tab orally t1 tab tid prn, may take 1/2 tab qhs up to 14 nights per month PRN; gabapentin 300 mg capsule 300 mg PO QHS Qty: 90 3RF Paxlovid (EUA) 300 mg (150 mg x 2)-100 mg tablets,dose pack See Rx Instructions PO .COMPLEX Qty: 30 0RF Rx Instructions: take TWO 150 mg tablets of nirmatrelvir with ONE 100 mg tablet of ritonavir twice daily for 5 days PO hydrocodone-acetaminophen 5-325 mg tablet 1 tab PO .COMPLEX MDD 17.5 mg PRN (Reason: pain) Qty: 91 0RF Rx Instructions: 1 tab orally t1 tab tid prn, may take an extra 1/2 tab at night up to 14 nights per month PRN; epinephrine [EpiPen 2-Yoshi] 0.3 MG/0.3 ML auto-injector 0.3 mg IJ PRN PRNQty: 2 5RF albuterol sulfate 90 mcg/actuation HFA aerosol inhaler 2 puff IH QID PRN (Reason: shortness of breath or wheezing) Qty: 8 0RF Discharge Instructions Instructions: Ear Infection (ED) Additional Instructions: Please take antibiotic as prescribed and do not take any further NSAIDs until dinner this evening. As discussed if you start having nausea or upset stomach with NSAIDs please start using acetaminophen/Tylenol as directed on packaging for your ear pain. If not improving over the next 3 to 4 days please follow-up with your primary care provider for reassessment or present to a local urgent care or the emergency department. Stay well-hydrated and avoid insertion of anything into the ear. Referrals: Delmar Day DO [Primary Care Provider] - (As needed for reassessment) Discharge Data Discharge Date/Time-TO BE ENTERED AT DEPARTURE: 04/24/22 14:34 Medical Decision Making Patient presenting to the emergency department with chief complaint of right ear pain for the last 3 days. Patient states that he has had a mild upper respiratory infection that has been going on but 3 days ago had significant ear pain. Patient denies fever chills, drainage from the ear, trauma, or other associated symptoms. Physical exam is consistent with significant right ear otitis media with effusion. Will place patient on antibiotics. Discussed with patient NSAID allergies that appear on his history and he denies any anaphylactoid type reactions. And states that he does take ibuprofen at home. Will prescribe patient ibuprofen and give Toradol IM in the emergency department to assist with pain. After discussion of diagnosis and plan of care patient has no further needs, questions, or concerns and states clear understanding to return to the emergency department for any worsening symptoms. This documentation was generated using [employer] dictation system, please disregard any oddities of phrase or misspellings. HPI General Mode of arrival: ambulatory. Date/Time Provider Initiated Documentation: 04/24/22 10:10. Limitations to Documentation: no limitations. Information obtained by: patient and RN notes reviewed. History of Present Illness 51 year old M presents to the emergency department with the chief complaint of Right ear pain, described as moderate, with intensity rated at 8. Quality is described as sharp, and is localized to the right (ear). Patient reports radiation to (head). Patient started experiencing this day(s) and it has been constant. No relieving factors improve symptom(s), No exacerbating factors reported . Patient did receive the following treatments prior to arrival, none Related Data Home Medications Medication Instructions Recorded Confirmed epinephrine 0.3 mg/0.3 mL 0.3 mg (0.3 mL) IJ PRN PRN ##2 01/15/19 03/01/22 injection, auto-injector (EpiPen 2-Yoshi) gabapentin 300 mg capsule 300 mg PO QHS #90 caps 09/16/21 09/16/21 albuterol sulfate 90 mcg/actuation 2 puff inhalation QID PRN 03/01/22 aerosol inhaler shortness of breath or wheezing #8 grams hydrocodone 5 mg-acetaminophen 325 1 tab PO .COMPLEX PRN pain #91 tabs 03/03/22 03/03/22 mg tablet hydrocodone 5 mg-acetaminophen 325 1 tab PO .COMPLEX PRN pain #91 tabs 03/03/22 03/03/22 mg tablet nirmatrelvir 300 mg (150 mg See Rx Instructions PO .COMPLEX 03/04/22 x2)-ritonavir 100 mg tablet,dose #30 dose pk pack(EUA) (Paxlovid) hydrocodone 5 mg-acetaminophen 325 1 tab PO .COMPLEX PRN pain #91 tabs 04/17/22 mg tablet amoxicillin 875 mg-potassium 1 tab PO BID 7 days #14 tabs 04/24/22 clavulanate 125 mg tablet ibuprofen 600 mg tablet (IBU) 600 mg PO QID PRN pain #20 tabs 04/24/22 Previous Rx's Medication Instructions Recorded epinephrine 0.3 mg/0.3 mL 0.3 mg (0.3 mL) IJ PRN PRN ##2 01/15/19 injection, auto-injector (EpiPen 2-Yoshi) gabapentin 300 mg capsule 300 mg PO QHS #90 caps 09/16/21 albuterol sulfate 90 mcg/actuation 2 puff inhalation QID PRN 03/01/22 aerosol inhaler shortness of breath or wheezing #8 grams hydrocodone 5 mg-acetaminophen 325 1 tab PO .COMPLEX PRN pain #91 tabs 03/03/22 mg tablet hydrocodone 5 mg-acetaminophen 325 1 tab PO .COMPLEX PRN pain #91 tabs 03/03/22 mg tablet nirmatrelvir 300 mg (150 mg See Rx Instructions PO .COMPLEX 03/04/22 x2)-ritonavir 100 mg tablet,dose #30 dose pk pack(EUA) (Paxlovid) hydrocodone 5 mg-acetaminophen 325 1 tab PO .COMPLEX PRN pain #91 tabs 04/17/22 mg tablet amoxicillin 875 mg-potassium 1 tab PO BID 7 days #14 tabs 04/24/22 clavulanate 125 mg tablet ibuprofen 600 mg tablet (IBU) 600 mg PO QID PRN pain #20 tabs 04/24/22 Allergies Allergy/AdvReac Type Severity Reaction Status Date / Time ketorolac AdvReac Intermediate Nausea Verified 03/03/22 10:26 cyclobenzaprine AdvReac Mild nausea Verified 03/03/22 10:26 [Cyclobenzaprine] ibuprofen AdvReac Mild nausea Verified 03/03/22 10:26 naproxen AdvReac Mild Nausea Verified 03/03/22 10:26 General Stated Complaint: EarProblem BULL: 4 Review of Systems Constitutional Constitutional: Denies chills, Denies fever(s) and Reports headache(s) Eyes Eyes: Denies change in vision ENT Ears, Nose, Mouth, and Throat: Reports as per HPI, Denies vertigo, Denies dizziness, Denies ear discharge, Reports otalgia, Reports facial pain, Reports headache(s), Reports nasal congestion, Denies nasal discharge, Denies neck pain, Denies sore throat and Denies tongue swelling Cardiovascular Cardiovascular: Denies chest pain and Denies dyspnea Respiratory Respiratory: Denies cough and Denies dyspnea Gastrointestinal Gastrointestinal: Denies nausea and Denies vomiting Musculoskeletal Musculoskeletal: Denies neck pain Integumentary/Breasts Skin/Breast: Denies rash Neurologic Neurologic: Denies vertigo, Denies dizziness and Reports headache(s) Allergic/Immunologic Allergic/Immunologic: Denies tongue swelling PFSH All Active Problems Acute right otitis media (Acute) SARS-CoV-2 positive (Acute ~03/04/22) Lumbar radiculopathy (Acute) Sensorineural hearing loss of both ears (Acute) Tinnitus (Acute) Chronic back pain (Acute) Eardrum rupture, left (Acute) Blunt head trauma (Acute) Right leg numbness (Acute) Acute back pain (Acute) Patellofemoral pain syndrome of left knee (Acute) steroid injection: 05/07/2020 Tobacco abuse (Acute) Lesion of uvula (Acute) history of uvula with squamous atypia. Status post excision. Continues to smoke. Tobacco use (Acute) Xerostomia (Acute) Throat pain (Acute) Post-operative pain (Acute) Wrist pain, right (Acute) Oropharyngeal dysphagia (Acute) Difficulty breathing (Acute) Anxiety (Chronic) Pulmonary emphysema (Acute) Angioedema (Acute) Superficial thrombophlebitis of arm (Acute) DVT (deep venous thrombosis) (Acute) Back pain (Acute) Medical History Arthritis Attention deficit hyperactivity disorder Chronic obstructive lung disease Tobacco dependence, continuous Surgical History Appendectomy Endoscopic Carpal Tunnel release H/O ankle fusion 4 total surgeries Repair of inguinal hernia right Family History Father Personal history of malignant neoplasm Liver CA Diabetes Paternal Uncle Alcohol abuse Maternal Uncle Alcohol abuse Sister Hypertension Other Cancer Social History Smoking/Tobacco Use Status: Current every day Tobacco: How many years used: 20 Smoking risk assessment performed?: Yes Alcohol Intake: current Alcohol Intake frequency: holidays/special occasions only Alcohol type: other Drug use: Occasionally Substance use type: marijuana Adopted: No Caregiver/Support person: No Foster care: No Household members: none Housing: apartment Number of Children: 1 Do you need help understanding health information?: Often current occupation: Disabled Sexually active: Yes Do you think of yourself as: straight/heterosexual Current gender identity: male What type of physical activity do you participate in: bicycling and additional Details: rides bike in the summer. 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 Do you feel safe at home: Yes Do you feel safe in your relationship?: Yes Exam Const General: cooperative, comfortable and no acute distress Orientation: alert and awake [facility] Head: normal to inspection, normocephalic and atraumatic Ears: external ears normal, TM normal on the left, mastoids normal, no periauricular adenopathy and TM abnormal bulging on the right, dull on the right, wth effusion purulent on the right, erythematous on the right and with loss of landmarks on the right General nose exam: external nose normal Face and sinus: no erythema Mouth: oral mucosae normal, no drooling and no trismus Throat: posterior oropharynx normal Neck Neck: normal visual inspection, full ROM, no lymphadenopathy, no meningeal signs, trachea midline and supple Resp Effort & Inspection: normal respiratory effort, able to speak in complete sentences and cough Quality of cough: dry Auscultation: clear to auscultation bilaterally Cardio Rate: regular rate Rhythm: regular rhythm Heart Sounds: S1 normal, S2 normal, normal S1 and S2, no click, no gallops, no murmurs and no rubs Skin General skin exam: no rashes or lesions noted and dry skin (warm) Neuro General: patient alert, patient awake, patient oriented x3, gait normal and moves all extremities Course Vital Signs Vital signs: Vital Signs Temperature 36.2 C L 04/24/22 10:01 Pulse 82 04/24/22 10:01 Respiratory Rate 20 04/24/22 10:01 Pulse Oximetry 95 04/24/22 10:01 Temperature 36.2 C L 04/24/22 10:01 Temperature Source Temporal Artery Scan 04/24/22 10:01 Pulse 82 04/24/22 10:01 Respiratory Rate 20 04/24/22 10:01 Pulse Oximetry 95 04/24/22 10:01 Oxygen Delivery Method Room Air 04/24/22 10:01 Oxygen Flow Rate 0 04/24/22 10:01 Pain Level 8 04/24/22 10:01
[2022-04-24] MEDS: Ketorolac 30 MG/ML VIAL IM (10:48)
[2022-04-24] MEDS: Amoxicillin 875/Clav. 125 TAB PO (10:49)
== END 2022-04-24 14:34 | disposition home or self-care (01) ==
PROVIDERS: Emergency Provider Nurse Practitioner Family; PCP Family Medicine
DX: H66.91 Otitis media, unspecified, right ear (principal); J44.9 Chronic obstructive pulmonary disease, unspecified; F17.200 Nicotine dependence, unspecified, uncomplicated
CPT/HCPCS: 96372; 99284; J1885

== ENCOUNTER 2022-05-26 13:46 | Outpatient (REF) | payer MEDICARE, SELFPAY ==
[2022-05-30 12:48] LABS: Codeine Negative ng/mL (Cutoff: 25); Dihydrocodeine 35 ng/mL (Cutoff: 25); Hydrocodone 31 ng/mL (Cutoff: 25); Hydromorphone 25 ng/mL (Cutoff: 25); Morphine Negative ng/mL (Cutoff: 25); Naloxone Negative ng/mL (Cutoff: 25); Norhydrocodone 83 ng/mL (Cutoff: 25); Noroxycodone Negative ng/mL (Cutoff: 25); Noroxymorphone Negative ng/mL (Cutoff: 25); Opiates Interpretation Positive.
== END 2022-05-26 13:47 | disposition home or self-care (01) ==
LOC: LBN 13:46
PROVIDERS: PCP Family Medicine; Visit Provider Family Medicine
DX: Z79.891 Long term (current) use of opiate analgesic (principal)
CPT/HCPCS: 80361; 80362; 80365

== ENCOUNTER 2022-08-13 04:21 | Outpatient (CLI) | payer MEDICARE, SELFPAY ==
[2022-08-13 13:33] LABS: ALT 30 U/L (16-63); AST 18 U/L (15-37); Albumin 3.7 g/dL (3.4-5.0); Alkaline Phosphatase 76 U/L (46-116); Anion Gap 7.1 mmol/L (3-11); BUN 15 mg/dL (7-18); Bilirubin, Total 0.4 mg/dL (0.2-1.0); CO2 28.9 mmol/L (21.0-32.0); Calculated LDL 117 mg/dL (<100); Chloride 105 mmol/L (98-107); Cholesterol 204 mg/dL (<200); Estimated GFR 92.26 (mL/min/1.73m2); Glucose 107 mg/dL (74-106); HDL Cholesterol 48 mg/dL (40-60); Potassium 3.7 mmol/L (3.5-5.1); Sodium 141 mmol/L (136-145); Total Protein 7.4 g/dL (6.4-8.2); Triglyceride 199 mg/dL (<150)
== END 2022-08-13 04:22 | disposition home or self-care (01) ==
LOC: LBO 04:21
PROVIDERS: PCP Family Medicine; Visit Provider Family Medicine
DX: Z13.220 Encounter for screening for lipoid disorders (principal)
CPT/HCPCS: 36415; 80053; 80061

== ENCOUNTER 2022-08-15 12:59 | Emergency (ER) | payer MEDICARE, SELFPAY ==
[2022-08-15 13:04] VITALS: BP 152/81; PULSE 82; RESP 18; TEMP 36.9; O2SAT 96
--- NOTE | 2022-08-15 13:15 | DI.RAD_ITS ---
Exam(s) XR HAND LT COMPLETE EXAM: XR HAND LT COMPLETE CLINICAL HISTORY: pain near thumb. TECHNIQUE: 2D digital imaging was performed of the left hand. Three views were obtained. AP, later al and oblique views were obtained. COMPARISON: No exams were available for comparison FINDINGS: BONES: No acute fracture is present. No bony destructive lesion is seen. JOINTS: No dislocation present. SOFT TISSUE: Normal. IMPRESSION: Unremarkable radiographs of the left hand. DATA REPOSITORY: RADIATION DOSE DELIVERED:
--- NOTE | 2022-08-15 13:20 | W.ED.GENAD ---
Discharge Plan Disposition Patient Disposition: Home Condition: Stable Discharge Details Clinical Impression: Left hand pain Primary Care Provider: [facility] ED Provider: James Barajas Home Meds and New Rx's Prescriptions: Continued hydrocodone-acetaminophen 5-325 mg tablet 1 tab PO .COMPLEX MDD 17.5 mg PRN (Reason: pain) Qty: 91 0RF Rx Instructions: 1 tab orally t1 tab tid prn, may take an extra 1/2 tab at night up to 14 nights per month PRN; hydrocodone-acetaminophen 5-325 mg tablet 1 tab PO .COMPLEX MDD 17.5 mg PRN (Reason: pain) Qty: 91 0RF Rx Instructions: t1 tab tid, may take occassional extra 1/2 tab prn qhs up to 14 nights per month; hydrocodone-acetaminophen 5-325 mg tablet 1 tab PO .COMPLEX MDD 17.5 mg PRN (Reason: pain) Qty: 91 0RF Rx Instructions: 1 tab orally t1 tab tid prn, may take 1/2 tab qhs up to 14 nights per month PRN; epinephrine [EpiPen 2-Yoshi] 0.3 MG/0.3 ML auto-injector 0.3 mg IJ PRN PRNQty: 2 5RF albuterol sulfate 90 mcg/actuation HFA aerosol inhaler 2 puff IH QID PRN (Reason: shortness of breath or wheezing) Qty: 8 0RF ibuprofen [IBU] 600 mg tablet 600 mg PO QID PRN (Reason: pain) Qty: 20 0RF Discharge Instructions Additional Instructions: Your xray did not show concerning findings at this time follow up as scheduled with your primary care provider if you feel more ill, have severe worsening pain or fevers return to the emergency department Medical Decision Making 51 yo male comes in with one month of left hand pain without known trauma. HE states he can feels a small bump at the base of the thumb onthe palmar surface. Denies fevers, chills, rashes, weakness. He arrives stable in no distress. He localizes the pain to the base of the thumb, I do not feel any palpable abnormalities under the skin, he has full rom of the thumb and hand, normal cap refill. No erythema or warmth to suggest infectious etiology. Will obtain xray to evaluate for possible fracture though unlikely given lack of trauma xray unremarkable, unclear etiology for his pain, still no infectious signs on exam. Will provide a splint to wear for comfort, has f/u with pcp this week, return precautions given Differential Diagnosis Differential Diagnosis: cyst, tendonitis Imaging Data Radiologic Study: Attestation: I personally reviewed and interpreted this imaging study as follows: Imaging: X-Ray Radiologist's impression: no acute findings HPI General Mode of arrival: ambulatory. Date/Time Provider Initiated Documentation: 08/15/22 13:08. Limitations to Documentation: no limitations. Information obtained by: patient. History of Present Illness 51 year old M presents to the emergency department with the chief complaint of left hand pain, described as moderate, and it has been constant. No relieving factors improve symptom(s), No exacerbating factors reported . Patient notes no other symptoms.. Patient did receive the following treatments prior to arrival, none Related Data Home Medications Medication Instructions Recorded Confirmed epinephrine 0.3 mg/0.3 mL 0.3 mg (0.3 mL) IJ PRN PRN ##2 01/15/19 08/15/22 injection, auto-injector (EpiPen 2-Yoshi) albuterol sulfate 90 mcg/actuation 2 puff inhalation QID PRN 03/01/22 08/15/22 aerosol inhaler shortness of breath or wheezing #8 grams ibuprofen 600 mg tablet (IBU) 600 mg PO QID PRN pain #20 tabs 04/24/22 08/15/22 hydrocodone 5 mg-acetaminophen 325 1 tab PO .COMPLEX PRN pain #91 tabs 05/26/22 08/15/22 mg tablet hydrocodone 5 mg-acetaminophen 325 1 tab PO .COMPLEX PRN pain #91 tabs 05/26/22 08/15/22 mg tablet hydrocodone 5 mg-acetaminophen 325 1 tab PO .COMPLEX PRN pain #91 tabs 05/26/22 08/15/22 mg tablet Previous Rx's Medication Instructions Recorded epinephrine 0.3 mg/0.3 mL 0.3 mg (0.3 mL) IJ PRN PRN ##2 01/15/19 injection, auto-injector (EpiPen 2-Yoshi) albuterol sulfate 90 mcg/actuation 2 puff inhalation QID PRN 03/01/22 aerosol inhaler shortness of breath or wheezing #8 grams ibuprofen 600 mg tablet (IBU) 600 mg PO QID PRN pain #20 tabs 04/24/22 hydrocodone 5 mg-acetaminophen 325 1 tab PO .COMPLEX PRN pain #91 tabs 05/26/ mg tablet hydrocodone 5 mg-acetaminophen 325 1 tab PO .COMPLEX PRN pain #91 tabs 15/22 mg tablet hydrocodone 5 mg-acetaminophen 325 1 tab PO .COMPLEX PRN pain #91 tabs 11/15/22 mg tablet Allergies Allergy/AdvReac Type Severity Reaction Status Date / Time ketorolac AdvReac Intermediate Nausea Verified 08/15/22 13:07 cyclobenzaprine AdvReac Mild nausea Verified 08/15/22 13:07 [Cyclobenzaprine] ibuprofen AdvReac Mild nausea Verified 08/15/22 13:07 naproxen AdvReac Mild Nausea Verified 08/15/22 13:07 General Stated Complaint: Orthopedic BULL: 4 Review of Systems All systems reviewed & are unremarkable except as noted in HPI and below Constitutional Constitutional: Denies chills, Denies fever(s) and Denies weakness Cardiovascular Cardiovascular: Denies chest pain and Denies dyspnea Respiratory Respiratory: Denies cough and Denies dyspnea Gastrointestinal Gastrointestinal: Denies abdominal pain, Denies nausea and Denies vomiting Integumentary/Breasts Skin/Breast: Denies rash Neurologic Neurologic: Denies weakness PFSH All Active Problems (Updated 08/15/22 @ 14:02 by James Barajas MD) 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 Status post excision. Continues to smoke. Tobacco use (Acute) Xerostomia (Acute) Throat pain (Acute) Post-operative pain (Acute) Wrist pain, right (Acute) Oropharyngeal dysphagia (Acute) Difficulty breathing (Acute) Anxiety (Chronic) Pulmonary emphysema (Acute) Angioedema (Acute) Superficial thrombophlebitis of arm (Acute) DVT (deep venous thrombosis) (Acute) Back pain (Acute) Medical History Arthritis Attention deficit hyperactivity disorder Chronic obstructive lung disease Tobacco dependence, continuous Surgical History Appendectomy Endoscopic Carpal Tunnel release H/O ankle fusion 4 total surgeries Repair of inguinal hernia right Family History Father Personal history of malignant neoplasm Liver CA Diabetes Paternal Uncle Alcohol abuse Maternal Uncle Alcohol abuse Sister Hypertension Other Cancer Social History Smoking/Tobacco Use Status: Current every day Tobacco: How many years used: 20 Smoking risk assessment performed?: Yes Alcohol Intake: current Alcohol Intake frequency: holidays/special occasions only Alcohol type: other Drug use: Occasionally Substance use type: marijuana Adopted: No Caregiver/Support person: No Foster care: No Household members: none Housing: apartment Number of Children: 1 Do you need help understanding health information?: Often current occupation: Disabled Sexually active: Yes Do you think of yourself as: straight/heterosexual Current gender identity: male What type of physical activity do you participate in: bicycling and additional Details: rides bike in the summer. 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 Do you feel safe at home: Yes Do you feel safe in your relationship?: Yes Exam Const General: no acute distress Orientation: alert HENMT Head: normal to inspection Ears: external ears normal General nose exam: external nose normal Mouth: moist mucous membranes Eyes General: appearance normal, both eyes and all related structures Neck Neck: normal visual inspection Resp Effort & Inspection: normal respiratory effort and able to speak in complete sentences Cardio Rate: regular rate Skin General skin exam: no rashes or lesions noted Neuro General: patient alert and patient oriented x3 Extrem General: normal to inspection, full ROM and capillary refill normal Psych Mental Status: mental status grossly normal Course Vital Signs Vital signs: Vital Signs Temperature 36.9 C 08/15/22 13:04 Pulse 82 08/15/22 13:04 Respiratory Rate 18 08/15/22 13:04 Blood Pressure 152/81 H 08/15/22 13:04 Pulse Oximetry 96 02/04/23 13:04 Temperature 36.9 C 08/15/22 13:04 Temperature Source Temporal Artery Scan 08/15/22 13:04 Pulse 82 08/15/22 13:04 Respiratory Rate 18 08/15/22 13:04 Respiratory Effort Non-Labored 08/15/22 13:09 Blood Pressure 152/81 H 08/15/22 13:04 Blood Pressure Position Sitting 08/15/22 13:04 Pulse Oximetry 96 08/15/22 13:04 Oxygen Delivery Method Room Air 08/15/22 13:04 Oxygen Flow Rate 0 08/15/22 13:04 PAWSS Have you Been Recently Intoxicated or Drunk Within the Last 30 days?: No Have you Ever Experienced Previous Episodes of Alcohol Withdrawal?: No Have you ever Experienced Withdrawal Seizures?: No Have you ever Experienced Delirium Tremens(DT)s?: No Have you ever undergone Alcohol Rehabilitation Treatment (i.e, inpt ot outpatient treatment programs)?: No Have you ever Experienced Blackouts?: No Have you ever Combined Alcohol with other Downers within the last 90 days?: No Have you ever Combined Alcohol with any other Substance of Abuse during the last 90 days?: No Positive Blood Alcohol level on Presentation? [PCS.BAL]: No Evidence of Increased Autonomic Activity (i.e. HR>120, tremor, sweating, agitation, nausea)?: No Result: 0
[2022-08-15] MEDS: Acetaminophen 500 MG TAB 1000 MG PO (13:21)
--- NOTE | 2022-08-15 13:55 | DI.VRAD_ITS ---
PROCEDURE INFORMATION: Exam: XR Left Hand Exam date and time: 08/15/2022 1:29 PM Age: 51 years old Clinical indication: Pain; Hand; Left TECHNIQUE: Imaging protocol: Radiologic exam of the Left hand. Views: 3 or more views. COMPARISON: NM WHOLE BODY BONE SCAN GRP 06/22/2017 1:28 PM FINDINGS: Bones/joints: There is no evidence of acute fracture.There is no evidence of malalignment or dislocation. Soft tissues: Normal. IMPRESSION: There is no evidence of acute fracture.There is no evidence of malalignment or dislocation. Dictated and Authenticated by: Elliot Mejia MD. Ordering:APPLE Ramirez MD
== END 2022-08-15 14:11 | disposition home or self-care (01) ==
PROVIDERS: Emergency Provider Emergency Medicine; PCP Family Medicine
DX: M79.645 Pain in left finger(s) (principal); J44.9 Chronic obstructive pulmonary disease, unspecified; F90.9 Attention-deficit hyperactivity disorder, unspecified type
CPT/HCPCS: 99283; 73130; 99282

== ENCOUNTER 2022-10-24 22:47 | Emergency (ER) | payer MEDICARE, SELFPAY ==
[2022-10-24 23:06] VITALS: BP 126/86; PULSE 103; RESP 18; TEMP 36.9; O2SAT 97
--- NOTE | 2022-10-25 00:11 | ED.GENADUL_ITS ---
Discharge Plan Disposition Patient Disposition: Home Condition: Stable Discharge Details Clinical Impression: Right ankle sprain, History of ankle fusion Primary Care Provider: [facility] ED Provider: Shirley Benitez Home Meds and New Rx's Prescriptions: Continued hydrocodone-acetaminophen 5-325 mg tablet 1 tab PO .COMPLEX MDD 17.5 mg PRN (Reason: pain) Qty: 91 0RF Rx Instructions: 1 tab orally t1 tab tid prn, may take 1/2 tab qhs up to 14 nights per month PRN; hydrocodone-acetaminophen 5-325 mg tablet 1 tab PO .COMPLEX MDD 17.5 mg PRN (Reason: pain) Qty: 91 0RF Rx Instructions: t1 tab tid, may take occassional extra 1/2 tab prn qhs up to 14 nights per month; hydrocodone-acetaminophen 5-325 mg tablet 1 tab PO .COMPLEX MDD 17.5 mg PRN (Reason: pain) Qty: 91 0RF Rx Instructions: 1 tab orally t1 tab tid prn, may take an extra 1/2 tab at night up to 14 nights per month PRN; prednisone 20 mg tablet See Rx Instructions PO DAILY Qty: 30 0RF Rx Instructions: t3 tabs for 7 days, then t2 tabs for 3 days, then t1 tab for 3 days, then stop orally daily; epinephrine [EpiPen 2-Yoshi] 0.3 MG/0.3 ML auto-injector 0.3 mg IJ PRN PRNQty: 2 5RF albuterol sulfate 90 mcg/actuation HFA aerosol inhaler 2 puff IH QID PRN (Reason: shortness of breath or wheezing) Qty: 8 0RF ibuprofen [IBU] 600 mg tablet 600 mg PO QID PRN (Reason: pain) Qty: 20 0RF Discharge Instructions Instructions: Ankle Sprain (ED) Additional Instructions: You are leaving before the final results of your x-rays are available. You will be notified if the radiologist notes any acute concerning or significant findings. Rest, ice, and elevate the affected area as much as possible. Wear the walking boot to help with pain and swelling. Use the crutches over the next few days to limit weightbearing. Take Tylenol as needed and directed for pain. Follow-up with your primary care doctor in 1 week and for referral to orthopedics if needed. Return to the emergency department with any worsening or new concerning symptoms. Referrals: Murray Farrell MD [ [facility] STAFF PHYSICIAN] - Discharge Data Discharge Date/Time-TO BE ENTERED AT DEPARTURE: 10/25/22 02:32 Discharge Physician: Shirley Benitez Medical Decision Making 2300 -- 52-year-old male with a history of multiple right ankle surgeries first occurring 30 years ago after a fracture with history of ankle fusion, last procedure occurring in July 2017 presents for worsening right ankle pain after inverting his ankle upon standing this evening. Patient appears uncomfortable. He has well-healed surgical scars of the right medial lateral ankle. There is some mild edema and significant tenderness throughout his entire ankle and foot with even light touch. There is no evidence of cellulitis or deformity. He is neurovascularly intact. Will refer for right ankle and foot x-rays. 0200 --delay in imaging due to high volume and acuity in the ED. there is also delay in V rad report. Patient is requesting to leave. On my review of imaging I do not see any obvious acute findings. He was placed in a tall walking boot and given crutches. It was discussed that he will be notified if radiology notes any acute abnormalities. He is advised to follow-up with his PCP or orthopedics for reevaluation and for consideration for repeat imaging if indicated. Usual and customary return precautions given prior to discharge. Imaging reviewed after patient left: Left foot xray: No acute fracture or dislocation noted. Left ankle x-ray noted: Prior surgical fusion of the ankle joint with two long surgical screws. Interval breakage of both orthopedic screws. No acute fracture seen. Although no acute fracture noted, will place patient on orthopedic follow-up list to discuss the interval breakage of orthopedic screws noted. Medical Records Medical records reviewed: Yes I reviewed the patient's medical records. Imaging Data Radiologic Study: Radiologist's impression: XR Right Foot Exam date and time: 10/25/2022 1:13 AM Age: 52 years old Clinical indication: Other: R/O ankle fusion, R/O FX TECHNIQUE: Imaging protocol: Radiologic exam of the right foot. Views: 3 or more views. COMPARISON: CR XR foot RT complete 06/22/2018 1:20 PM FINDINGS: Bones/joints: Dedicated views of the ankle were obtained concurrently and have been dictated separately. Prior surgical fusion of the ankle with interval breakage of both surgical screws is redemonstrated. No acute fracture or dislocation is seen in the foot. A small well corticated ossification posterior to the proximal aspect of the navicular bone probably represents an accessory ossicle or possibly a sequela of prior trauma. Soft tissues: No gross focal soft tissue swelling is seen. IMPRESSION: No acute fracture or dislocation seen in the right foot. XR Right Ankle Exam date and time: 10/25/2022 1:11 AM Age: 52 years old Clinical indication: Other: Twisted ankle, R/O FX TECHNIQUE: Imaging protocol: Radiologic exam of the right ankle. Views: 3 or more views. COMPARISON: CR XR ANKLE RT COMPLETE 06/22/2018 1:20 PM FINDINGS: Bones/joints: There has been prior fusion of the ankle joint with two long surgical screws. There has been interval breakage of both screws since the prior study from 2018. There is complete bony fusion across the ankle mortise and partial fusion across the talocalcaneal joint, as seen on the prior exam. 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 A large irregular osteophyte is redemonstrated along the lateral margin of the ankle, also present on the comparison study from 2018. A small well corticated small ossification is redemonstrated posterior to the proximal aspect of the navicular bone, probably an accessory ossicle or possibly a sequela of old trauma. Soft tissues: No gross soft tissue swelling is demonstrated. IMPRESSION: Prior surgical fusion of the ankle joint with two long surgical screws. Interval breakage of both orthopedic screws. No acute fracture seen. HPI General Mode of arrival: ambulatory . Date/Time Provider Initiated Documentation: 10/24/22 22:48 . Limitations to Documentation: no limitations . Information obtained by: patient . HPI Narrative: Patient is a 52-year-old male who has had multiple right ankle surgeries including ankle fusion, last procedure occurring in July 2017 presents with increasing right ankle pain after rolling his ankle this evening. Patient states he was walking earlier today and felt pain in his ankle and then went home to rest. Patient states when he stood up after sitting he felt that he inverted his right ankle and has had increased pain since then. He states the pain is throughout his entire ankle. He has not taken any medication for pain. Patient states he cannot take NSAIDs due to GI upset. Related Data Home Medications Medication Instructions Recorded Confirmed epinephrine 0.3 mg/0.3 mL 0.3 mg (0.3 mL) IJ PRN PRN ##2 01/15/19 08/20/22 injection, auto-injector (EpiPen 2-Yoshi) albuterol sulfate 90 mcg/actuation 2 puff inhalation QID PRN 03/01/22 08/20/22 aerosol inhaler shortness of breath or wheezing #8 grams ibuprofen 600 mg tablet (IBU) 600 mg PO QID PRN pain #20 tabs 04/24/22 08/20/22 hydrocodone 5 mg-acetaminophen 325 1 tab PO .COMPLEX PRN pain #91 tabs 08/18/22 08/20/22 mg tablet hydrocodone 5 mg-acetaminophen 325 1 tab PO .COMPLEX PRN pain #91 tabs 09/03/22 mg tablet hydrocodone 5 mg-acetaminophen 325 1 tab PO .COMPLEX PRN pain #91 tabs 09/03/22 mg tablet prednisone 20 mg tablet See Rx Instructions PO DAILY #30 09/03/22 tabs Previous Rx's Medication Instructions Recorded epinephrine 0.3 mg/0.3 mL 0.3 mg (0.3 mL) IJ PRN PRN ##2 01/15/19 injection, auto-injector (EpiPen 2-Yoshi) albuterol sulfate 90 mcg/actuation 2 puff inhalation QID PRN 03/01/22 aerosol inhaler shortness of breath or wheezing #8 grams ibuprofen 600 mg tablet (IBU) 600 mg PO QID PRN pain #20 tabs 04/24/22 hydrocodone 5 mg-acetaminophen 325 1 tab PO .COMPLEX PRN pain #91 tabs 08/18/22 mg tablet hydrocodone 5 mg-acetaminophen 325 1 tab PO .COMPLEX PRN pain #91 tabs 09/03/22 mg tablet hydrocodone 5 mg-acetaminophen 325 1 tab PO .COMPLEX PRN pain #91 tabs 09/03/22 mg tablet prednisone 20 mg tablet See Rx Instructions PO DAILY #30 09/03/22 tabs Allergies Allergy/AdvReac Type Severity Reaction Status Date / Time ketorolac AdvReac Intermediate Nausea Verified 10/24/22 23:13 cyclobenzaprine AdvReac Mild nausea Verified 10/24/22 23:13 [Cyclobenzaprine] ibuprofen AdvReac Mild nausea Verified 10/24/22 23:13 naproxen AdvReac Mild Nausea Verified 10/24/22 23:13 General Stated Complaint: Orthopedic BULL: 4 Review of Systems All systems reviewed & are unremarkable except as noted in HPI and below Constitutional Constitutional: Reports as per HPI, Denies chills and Denies fever(s) Eyes Eyes: Denies blurry vision ENT Ears, Nose, Mouth, and Throat: Denies dizziness, Denies sore throat and Denies throat swelling Cardiovascular Cardiovascular: Denies chest pain and Denies dyspnea Respiratory Respiratory: Denies cough and Denies dyspnea Gastrointestinal Gastrointestinal: Denies abdominal pain, Denies diarrhea and Denies vomiting Genitourinary Genitourinary: Denies hematuria and Denies dysuria Musculoskeletal Musculoskeletal: Denies back pain and Denies numbness Comments: R ankle pain Integumentary/Breasts Skin/Breast: Denies lesions and Denies rash Neurologic Neurologic: Denies dizziness, Denies localized weakness and Denies numbness Allergic/Immunologic Allergic/Immunologic: Denies throat swelling PFSH All Active Problems (Updated 10/25/22 @ 02:11 by Shirley Benitez DO) Right ankle sprain (Acute) History of ankle fusion (Acute) 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 Status post excision. Continues to smoke. Tobacco use (Acute) Xerostomia (Acute) Throat pain (Acute) Post-operative pain (Acute) Wrist pain, right (Acute) Oropharyngeal dysphagia (Acute) Difficulty breathing (Acute) Anxiety (Chronic) Pulmonary emphysema (Acute) Angioedema (Acute) Superficial thrombophlebitis of arm (Acute) DVT (deep venous thrombosis) (Acute) Back pain (Acute) Medical History Arthritis Attention deficit hyperactivity disorder Chronic obstructive lung disease Tobacco dependence, continuous Surgical History Appendectomy Endoscopic Carpal Tunnel release H/O ankle fusion 4 total surgeries Repair of inguinal hernia right Family History Father Personal history of malignant neoplasm Liver CA Diabetes Paternal Uncle Alcohol abuse Maternal Uncle Alcohol abuse Sister Hypertension Other Cancer Social History Smoking/Tobacco Use Status: Current every day Tobacco: How many years used: 20 Smoking risk assessment performed?: Yes Alcohol Intake: current Alcohol Intake frequency: holidays/special occasions only Alcohol type: other Drug use: Occasionally Substance use type: marijuana Adopted: No Caregiver/Support person: No Foster care: No Household members: none Housing: apartment Number of Children: 1 Do you need help understanding health information?: Often current occupation: Disabled Sexually active: Yes Do you think of yourself as: straight/heterosexual Current gender identity: male What type of physical activity do you participate in: bicycling and additional Details: rides bike in the summer. Seatbelt use: always Drive intox or ride w/intox passenger coach driver: No Do you feel safe at home: Yes Do you feel safe in your relationship?: Yes Exam Const General: cooperative and uncomfortable Orientation: alert, awake and oriented x3 HENMT Head: normal to inspection Mouth: oral mucosae normal Eyes General: appearance normal, both eyes and all related structures Neck Neck: normal visual inspection Resp Effort & Inspection: normal respiratory effort and able to speak in complete sentences Cardio Rate: regular rate Skin General skin exam: no rashes or lesions noted Neuro General: patient alert, patient awake and patient oriented x3 Motor: muscle tone normal throughout Extrem Other: Well-healed surgical scars noted to right medial and lateral ankle. He has tenderness throughout his entire ankle with even light touch. There is no obvious ecchymosis or deformity. He has mild edema throughout the ankle. His right PT/DP pulses are intact. He also has tenderness of the entire right foot including the heel. Psych Appearance: grossly normal Affect: normal affect Course Vital Signs Vital signs: Vital Signs Temperature 98.4 F 10/24/22 23:06 Pulse 103 H 10/24/22 23:06 Respiratory Rate 18 10/24/22 23:06 Blood Pressure 126/86 10/24/22 23:06 Pulse Oximetry 97 10/24/22 23:06 Temperature 98.4 F 10/24/22 23:06 Temperature Source Oral 10/24/22 23:06 Pulse 103 H 10/24/22 23:06 Respiratory Rate 18 10/24/22 23:06 Respiratory Effort Normal 10/24/22 23:12 Blood Pressure 126/86 10/24/22 23:06 Blood Pressure Position Sitting 10/24/22 23:06 Pulse Oximetry 97 10/24/22 23:06 Oxygen Delivery Method Room Air 10/24/22 23:06 Oxygen Flow Rate 0 10/24/22 23:06 Pain Level 10 10/24/22 23:06 Procedures Orthopedic Splinting/Casting Injury #1: Side: right Lower Extremity Injury Location: ankle Lower Extremity Immobilizer: boot orthosis Other Orthopedic Equipment: crutches
--- NOTE | 2022-10-25 00:15 | DI.RAD_ITS ---
Exam(s) XR FOOT RT COMPLETE EXAM: XR FOOT RT COMPLETE CLINICAL HISTORY: twisted ankle, r/o ankle fusion, r/o fx. TECHNIQUE: 2D digital imaging was performed. COMPARISON: CR RIGHT FOOT COMPLETE from 12/14/2017 FINDINGS: 3 views No evidence of acute fracture or diastasis of the Lisfranc joint. Metatarsals and phalanges appear u nremarkable. More proximally there again noted previously described 2 long orthopedic screws with fusion of the an kle tibiotalar joint and fusion of posterior aspect of the subtalar joint. Both screws are noted to be discontinuous and there is some loosening of the screws evident. No radiographic evidence of oste omyelitis. IMPRESSION: As above. DATA REPOSITORY: RADIATION DOSE DELIVERED:
--- NOTE | 2022-10-25 00:15 | DI.RAD_ITS ---
Exam(s) XR ANKLE RT COMPLETE EXAM: XR ANKLE RT COMPLETE CLINICAL HISTORY: twisted ankle, r/o fx. TECHNIQUE: 2D digital imaging was performed. COMPARISON: CR RIGHT ANKLE COMPLETE from 07/23/2017 FINDINGS: 3 views Again noted are the previously described 2 screws across the ankle and subtalar joints with bony fusi on of the tibiotalar joint but not yet complete fusion of the subtalar joint. There has been interval breakage of both orthopedic screws. No fractures and no radiographic evidenc e of osteomyelitis. Accessory ossicle again noted dorsal to the talonavicular joint. Oblique fracture line again noted i n the distal fibula IMPRESSION: As above. Prior surgical fusion of the ankle joint with 2 long surgical screws and there has been in terval breakage of both of these orthopedic screws. No acute fractures evident. DATA REPOSITORY: RADIATION DOSE DELIVERED:
[2022-10-25] MEDS: oxyCODONE 5 MG TAB PO (00:31)
--- NOTE | 2022-10-25 02:42 | DI.VRAD_ITS ---
PROCEDURE INFORMATION: Exam: XR Right Ankle Exam date and time: 10/25/2022 1:11 AM Age: 52 years old Clinical indication: Other: Twisted ankle, R/O FX TECHNIQUE: Imaging protocol: Radiologic exam of the right ankle. Views: 3 or more views. COMPARISON: CR XR ANKLE RT COMPLETE 06/22/2018 1:20 PM FINDINGS: Bones/joints: There has been prior fusion of the ankle joint with two long surgical screws. There has been interval breakage of both screws since the prior study from 2018. There is complete bony fusion across the ankle mortise and partial fusion across the talocalcaneal joint, as seen on the prior exam. 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 A large irregular osteophyte is redemonstrated along the lateral margin of the ankle, also present on the comparison study from 2018. A small well corticated small ossification is redemonstrated posterior to the proximal aspect of the navicular bone, probably an accessory ossicle or possibly a sequela of old trauma. Soft tissues: No gross soft tissue swelling is demonstrated. IMPRESSION: Prior surgical fusion of the ankle joint with two long surgical screws. Interval breakage of both orthopedic screws. No acute fracture seen. Dictated and Authenticated by: Shaun Zazueta MD. Ordering:MITZY Watson MD
--- NOTE | 2022-10-25 02:45 | DI.VRAD_ITS ---
PROCEDURE INFORMATION: Exam: XR Right Foot Exam date and time: 10/25/2022 1:13 AM Age: 52 years old Clinical indication: Other: R/O ankle fusion, R/O FX TECHNIQUE: Imaging protocol: Radiologic exam of the right foot. Views: 3 or more views. COMPARISON: CR XR foot RT complete 06/22/2018 1:20 PM FINDINGS: Bones/joints: Dedicated views of the ankle were obtained concurrently and have been dictated separately. Prior surgical fusion of the ankle with interval breakage of both surgical screws is redemonstrated. No acute fracture or dislocation is seen in the foot. A small well corticated ossification posterior to the proximal aspect of the navicular bone probably represents an accessory ossicle or possibly a sequela of prior trauma. Soft tissues: No gross focal soft tissue swelling is seen. IMPRESSION: No acute fracture or dislocation seen in the right foot. Dictated and Authenticated by: Shaun Zazueta MD. Ordering:MITZY Watson MD
--- NOTE | 2022-10-31 11:18 | NUR.NOTE ---
Per Dr. Evangelista, referral to Ortho needed in 1-2 weeks, Patient was seen here about 1 week ago for an ankle sprain, there was no acute fracture. Patient has a hx of a rt ankle fusion and needs to be reassessed for loosening of screws. Put the referral in the personal care service provider's box for f/u assistance.Nursing Note:
== END 2022-10-25 02:32 | disposition home or self-care (01) ==
PROVIDERS: Emergency Provider Physician Assistant; PCP Family Medicine
DX: S93.401A Sprain of unspecified ligament of right ankle, initial encounter (principal); X50.1XXA Overexertion from prolonged static or awkward postures, initial encounter; Y93.01 Activity, walking, marching and hiking; Z98.1 Arthrodesis status; J44.9 Chronic obstructive pulmonary disease, unspecified
CPT/HCPCS: 29515; 99283; 73610; 73630; 99284

== ENCOUNTER 2022-11-20 21:43 | Emergency (ER) | payer MEDICARE, SELFPAY ==
[2022-11-20] VITALS (18 sets, daily range): BP systolic 112–123; BP diastolic 72–73; PULSE 59–81; RESP 13–40; TEMP 36.8; O2SAT 94–100
--- NOTE | 2022-11-20 21:45 | RT.EKG_ITS ---
APPROVED REPORT Exam: Resting ECG Reason for Exam: sob Patient Location: E HR:82 bpm ECG Measurements Heart Rate 82 AXIS WV 151 P 47 QRSd 90 QRS 18 QT 388 T 33 QTc 452 Conclusion Sinus rhythm...normal P axis, V-rate 60- 99 Probable left atrial enlargement...P >50mS, <-0.10mV V1 Posterior infarct, old...prom R T, V1-V3 or Q >40mS, V7-V9 little change vs 01/25
--- NOTE | 2022-11-20 22:00 | DI.RAD_ITS ---
Exam(s) XR CHEST 2V PA LATERAL EXAM: XR CHEST 2V PA LATERAL CLINICAL HISTORY: dyspnea TECHNIQUE: 2D digital imaging was performed. COMPARISON: CR,XR XR CHEST 2V PA LATERAL from 03/01/2022 CR,XR XR FOOT RT COMPLETE from 10/25/2022 FINDINGS: HEART: Normal size. Aorta: Not dilated. PULMONARY VASCULATURE: Normal. LUNGS: Clear. PLEURAL SPACE: No pleural effusion or pneumothorax. BONE:Unremarkable for age. IMPRESSION: No acute abnormality. DATA REPOSITORY: RADIATION DOSE DELIVERED:
--- NOTE | 2022-11-20 22:14 | W.ED.GENAD ---
Discharge Plan Disposition Patient Disposition: Home Condition: Improving Discharge Details Clinical Impression: Acute bronchitis Primary Care Provider: [facility] Provider: Edith Wooten Home Meds and New Rx's Prescriptions: Continued hydrocodone-acetaminophen 5-325 mg tablet 1 tab PO .COMPLEX MDD 17.5 mg PRN (Reason: pain) Qty: 91 0RF Rx Instructions: 1 tab orally t1 tab tid prn, may take 1/2 tab qhs up to 14 nights per month PRN; hydrocodone-acetaminophen 5-325 mg tablet 1 tab PO .COMPLEX MDD 17.5 mg PRN (Reason: pain) Qty: 91 0RF Rx Instructions: t1 tab tid, may take occassional extra 1/2 tab prn qhs up to 14 nights per month; hydrocodone-acetaminophen 5-325 mg tablet 1 tab PO .COMPLEX MDD 17.5 mg PRN (Reason: pain) Qty: 91 0RF Rx Instructions: 1 tab orally t1 tab tid prn, may take an extra 1/2 tab at night up to 14 nights per month PRN; naproxen 500 mg tablet 500 mg PO BID PRN (Reason: pain) Qty: 60 0RF epinephrine [EpiPen 2-Yoshi] 0.3 MG/0.3 ML auto-injector 0.3 mg IJ PRN PRNQty: 2 5RF albuterol sulfate 90 mcg/actuation HFA aerosol inhaler 2 puff IH QID PRN (Reason: shortness of breath or wheezing) Qty: 8 0RF Discharge Instructions Instructions: Acute Bronchitis (ED) Additional Instructions: Use albuterol 2 puffs every 4 hours and as needed for cough. Take the dextromethorphan with guaifenesin as needed for cough. Hydrocodone that you are prescribed also helps with cough. We no longer treat bronchitis with antibiotics and this is likely what you have. The cough can sometimes persist for several months. Recheck with your primary care doctor next week as needed. Return to ED for severe difficulty breathing, chest pain, any other concerns. Medical Decision Making Patient seemed anxious in the ED and his respiratory rate immediately settled down after some Ativan. Have advised him to try dextromethorphan and guaifenesin with the albuterol for his cough. I suspect this is bronchitis and we talked about the fact that antibiotics are no longer recommended for this. His breathing appears normal and he looks quite comfortable. He will return for severe breathing difficulty or any other concerns. [id number] testing was also negative for COVID, flu, and RSV. Imaging Data Radiologic Study: Imaging: X-Ray (NAD) ECG Data Attestation: I personally reviewed and interpreted this ECG (s) as follows: (EKG: NSR 82, some artifact, little change from 01/25, no ST-T abnl, nl intervals) HPI General Date/Time Provider Initiated Documentation: 11/20/22 22:06. HPI Narrative: This 52-year-old male patient presents with a chief complaint of cough and difficulty breathing. Patient reports that he has been in bed the past 2 days because of his cough. He denies fever, shaking chills, congestion, rhinitis, or sore throat. He says that he coughs so hard he has posttussive retching at points. He says that he feels like he is having trouble breathing and his face is tingly. He seems anxious and appears to be hyperventilating. He denies chest pain, pedal edema, or calf pain. Breathing trouble is new this evening. Related Data Home Medications Medication Instructions Recorded Confirmed epinephrine 0.3 mg/0.3 mL 0.3 mg (0.3 mL) IJ PRN PRN ##2 01/15/19 11/20/22 injection, auto-injector (EpiPen 2-Yoshi) albuterol sulfate 90 mcg/actuation 2 puff inhalation QID PRN 03/01/22 11/20/22 aerosol inhaler shortness of breath or wheezing #8 grams naproxen 500 mg tablet 500 mg PO BID PRN pain #60 tabs 11/03/22 11/20/22 hydrocodone 5 mg-acetaminophen 325 1 tab PO .COMPLEX PRN pain #91 tabs 11/13/22 11/20/22 mg tablet hydrocodone 5 mg-acetaminophen 325 1 tab PO .COMPLEX PRN pain #91 tabs 11/13/22 11/20/22 mg tablet hydrocodone 5 mg-acetaminophen 325 1 tab PO .COMPLEX PRN pain #91 tabs 11/13/22 11/20/22 mg tablet Previous Rx's Medication Instructions Recorded epinephrine 0.3 mg/0.3 mL 0.3 mg (0.3 mL) IJ PRN PRN ##2 01/15/19 injection, auto-injector (EpiPen 2-Yoshi) albuterol sulfate 90 mcg/actuation 2 puff inhalation QID PRN 03/01/22 aerosol inhaler shortness of breath or wheezing #8 grams naproxen 500 mg tablet 500 mg PO BID PRN pain #60 tabs 11/03/22 hydrocodone 5 mg-acetaminophen 325 1 tab PO .COMPLEX PRN pain #91 tabs 11/13/22 mg tablet hydrocodone 5 mg-acetaminophen 325 1 tab PO .COMPLEX PRN pain #91 tabs 11/13/22 mg tablet hydrocodone 5 mg-acetaminophen 325 1 tab PO .COMPLEX PRN pain #91 tabs 11/13/22 mg tablet Allergies Allergy/AdvReac Type Severity Reaction Status Date / Time ketorolac AdvReac Intermediate Nausea Verified 11/20/22 21:54 cyclobenzaprine AdvReac Mild nausea Verified 11/20/22 21:54 [Cyclobenzaprine] ibuprofen AdvReac Mild nausea Verified 11/20/22 21:54 naproxen AdvReac Mild Nausea Verified 11/20/22 21:54 General Stated Complaint: SOB BULL: 2 Review of Systems Constitutional Constitutional: Denies chills, Denies fever(s), Denies headache(s) and Denies weakness Eyes Eyes: Denies diplopia and Reports other (no redness) ENT Ears, Nose, Mouth, and Throat: Denies otalgia, Denies headache(s), Denies nasal congestion, Denies nasal discharge, Denies neck pain and Denies sore throat Cardiovascular Cardiovascular: Denies chest pain, Denies palpitations and Reports dyspnea Respiratory Respiratory: Reports cough and Reports dyspnea Gastrointestinal Gastrointestinal: Denies abdominal pain, Denies diarrhea, Denies nausea and Denies vomiting Genitourinary Genitourinary: Denies difficulty urinating and Denies dysuria Musculoskeletal Musculoskeletal: Denies myalgias, Denies muscle weakness, Denies neck pain, Denies numbness and Reports other (edema) Integumentary/Breasts Skin/Breast: Denies change in pigmentation and Denies rash Neurologic Neurologic: Denies headache(s), Denies numbness and Denies weakness Endocrine Endocrine: Denies palpitations PFSH All Active Problems (Updated 11/20/22 @ 23:41 by Edith Wooten MD) Acute bronchitis (Acute) Painful orthopaedic hardware (Acute) Right ankle sprain (Acute) History of ankle fusion (Acute) custodial prescription opiate use (Chronic) UDS consistently negative, confirmation analysis consistently positive Lumbar radiculopathy (Acute) Sensorineural hearing loss of both ears (Acute) Tinnitus (Acute) Chronic back pain (Acute) Eardrum rupture, left (Acute) Blunt head trauma (Acute) Right leg numbness (Acute) Acute back pain (Acute) Patellofemoral pain syndrome of left knee (Acute) steroid injection: 05/07/2020 Tobacco abuse (Acute) Lesion of uvula (Acute) history of uvula with squamous atypia. Status post excision. Continues to smoke. Tobacco use (Acute) Xerostomia (Acute) Throat pain (Acute) Post-operative pain (Acute) Wrist pain, right (Acute) Oropharyngeal dysphagia (Acute) Difficulty breathing (Acute) Anxiety (Chronic) Pulmonary emphysema (Acute) Angioedema (Acute) Superficial thrombophlebitis of arm (Acute) DVT (deep venous thrombosis) (Acute) Back pain (Acute) Medical History Arthritis Attention deficit hyperactivity disorder Chronic obstructive lung disease Tobacco dependence, continuous Surgical History Appendectomy Endoscopic Carpal Tunnel release H/O ankle fusion 4 total surgeries Repair of inguinal hernia right Family History Father Personal history of malignant neoplasm Liver CA Diabetes Paternal Uncle Alcohol abuse Maternal Uncle Alcohol abuse Sister Hypertension Other Cancer Social History Smoking/Tobacco Use Status: Current every day Tobacco Type: cigarettes Tobacco: How many years used: 20 Smoking risk assessment performed?: Yes Alcohol Intake: current Alcohol Intake frequency: holidays/special occasions only Alcohol type: other Drug use: Occasionally Substance use type: marijuana Adopted: No Caregiver/Support person: No Foster care: No Household members: none Housing: apartment Number of Children: 1 Do you need help understanding health information?: Often current occupation: Disabled Sexually active: Yes Do you think of yourself as: straight/heterosexual Current gender identity: male What type of physical activity do you participate in: bicycling and additional Details: rides bike in the summer. 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 Do you feel safe at home: Yes Do you feel safe in your relationship?: Yes Exam Const General: well developed and well groomed Nutritional Appearance: well nourished Orientation: alert and oriented x3 Other: Anxious and persistently coughing HENMT Head: normocephalic and atraumatic Ears: external ears normal Mouth: oropharynx normal and moist mucous membranes Throat: posterior oropharynx normal Eyes Conjunctivae: conjunctivae normal Neck Neck: full ROM and supple Chest Chest: normal inspection of the chest Resp Effort & Inspection: normal respiratory effort Auscultation: clear to auscultation bilaterally Cardio Rate: regular rate Rhythm: regular rhythm Heart Sounds: no murmurs and no rubs GI Inspection: normal to inspection Palpation: soft, nontender and other (non distended) Auscultation: normal bowel sounds Skin General skin exam: no rashes or lesions noted and other (pink, warm, dry) Neuro General: patient alert, patient awake and patient oriented x3 Speech: speech normal Motor: other (BOLIVRA) Sensory Exam: no sensory deficits noted Extrem General: normal to inspection, full ROM and pedal edema present Psych Mental Status: mental status grossly normal Speech and Movement: speech and movement normal Affect: normal affect Course Vital Signs Vital signs: Vital Signs Temperature 36.8 C 11/20/22 21:47 Pulse 78 11/20/22 21:47 Respiratory Rate 30 H 11/20/22 21:47 Blood Pressure 123/73 11/20/22 21:47 Pulse Oximetry 100 11/20/22 21:47 Temperature 36.8 C 11/20/22 21:47 Temperature Source Temporal Artery Scan 11/20/22 21:47 Pulse 74 11/20/22 22:01 Pulse 78 11/20/22 22:01 Respiratory Rate 27 H 11/20/22 22:01 Respiratory Effort Labored, Accessory Muscle Use 11/20/22 22:12 Respiratory Depth Shallow 11/20/22 22:12 Respiratory Pattern Tachypnea 11/20/22 22:12 Blood Pressure 115/73 11/20/22 22:01 Blood Pressure Mean 82 11/20/22 22:01 Blood Pressure Position Supine 11/20/22 21:47 Pulse Oximetry 99 11/20/22 22:01 Oxygen Delivery Method Room Air 11/20/22 21:47 Oxygen Flow Rate 0 11/20/22 21:47 Pain Level 0 11/20/22 21:47
[2022-11-20] MEDS: guaiFENesin/D-METHORPHAN HB 5 ML CUP 10 ML PO (22:19)
[2022-11-20] MEDS: Albuterol HFA 8 GM 60 PUFF INH IH (22:19)
[2022-11-20] MEDS: Inhaler, Assist Device 1 EACH MC (22:20)
[2022-11-20] MEDS: LORazepam 1 MG TAB 2 MG PO (23:16)
--- NOTE | 2022-11-20 23:21 | DI.VRAD_ITS ---
PROCEDURE INFORMATION: Exam: XR Chest Exam date and time: 11/20/2022 10:33 PM Age: 52 years old Clinical indication: Other: Dyspnea TECHNIQUE: Imaging protocol: Radiologic exam of the chest. Views: 2 views. COMPARISON: CR XR CHEST 2V PA LATERAL 03/01/2022 10:21 PM FINDINGS: Lungs: Lungs are adequately inflated and symmetric. No focal consolidation or pulmonary edema. Pleural spaces: No pleural effusion. No pneumothorax. Heart/Mediastinum: Cardiomediastinal contours within normal limits. Bones/joints: No acute osseous finding. IMPRESSION: No acute findings. Dictated and Authenticated by: Carlos Meredith MD. Ordering:PHANI Sharma MD
[2022-11-20] MEDS: guaiFENesin/D-METHORPHAN HB 5 ML CUP 20 ML PO (23:50)
== END 2022-11-20 23:51 | disposition home or self-care (01) ==
PROVIDERS: Emergency Provider Emergency Medicine; PCP Family Medicine
DX: J20.9 Acute bronchitis, unspecified (principal); R06.02 Shortness of breath; R06.09 Other forms of dyspnea
CPT/HCPCS: 36415; 87426; 93005; 99284; 71046; 93010

== ENCOUNTER 2022-11-27 14:46 | Outpatient (CLI) | payer MEDICARE, SELFPAY ==
--- NOTE | 2022-11-27 | DI.RAD_ITS ---
Exam(s) XR ANKLE RT COMPLETE XR FOOT RT COMPLETE EXAM: XR ANKLE RT COMPLETE and XR foot RT complete CLINICAL HISTORY: PAIN, M25.571,H/O HARDWARE,? DISPLACEMENT OR CHANGE. TECHNIQUE: 2D digital imaging was performed. Six images were obtained. AP, lateral and oblique view s were obtained. COMPARISON: CR,XR XR ANKLE RT COMPLETE from 10/25/2022 CR,XR XR FOOT RT COMPLETE from 10/25/2022 FINDINGS: BONES: There are stable post operative changes present. No new fracture or dislocation. There is a t ibial talar fusion. The 2 orthopedic screws crossing the joint are again seen shown to be fractured. There is an unchanged nonunited distal fibular fracture/osteotomy. JOINTS: There is a tibial talar fusion. Degenerative changes are seen at the 1st MTP joint. SOFT TISSUE: Normal. IMPRESSION: 1. Stable postoperative changes. 2. No acute abnormality is seen in the right ankle or right foot. DATA REPOSITORY: RADIATION DOSE DELIVERED:
== END 2022-11-27 15:06 ==
LOC: DI 14:46
PROVIDERS: PCP Family Medicine; Visit Provider Physician Assistant Medical
DX: T84.84XD Pain due to internal orthopedic prosthetic devices, implants and grafts, subsequent encounter (principal); X58.XXXD Exposure to other specified factors, subsequent encounter
CPT/HCPCS: 73610; 73630

== ENCOUNTER 2023-01-22 18:42 | Emergency (ER) | payer MEDICARE, SELFPAY ==
[2023-01-22 18:42] VITALS: BP 124/76; RESP 18; TEMP 36.3; O2SAT 92
[2023-01-22] MEDS: Normal Saline 1,000 ML 1000 ML IV (18:52)
[2023-01-22] MEDS: Glucagon 1 MG VIAL IVP (18:54)
[2023-01-22 19:00] VITALS: BP 127/95; PULSE 83; RESP 18; O2SAT 96
--- NOTE | 2023-01-22 19:01 | ED.GENADUL_ITS ---
Discharge Plan Disposition Patient Disposition: Home Condition: Good Discharge Details Clinical Impression: Food impaction of esophagus Primary Care Provider: [facility] Provider: Giuseppe Nagel Meds and New Rx's Prescriptions: Continued hydrocodone-acetaminophen 5-325 mg tablet 1 tab PO .COMPLEX MDD 17.5 mg PRN (Reason: pain) Qty: 91 0RF Rx Instructions: 1 tab orally t1 tab tid prn, may take 1/2 tab qhs up to 14 nights per month PRN; epinephrine [EpiPen 2-Yoshi] 0.3 MG/0.3 ML auto-injector 0.3 mg IJ PRN PRNQty: 2 5RF albuterol sulfate 90 mcg/actuation HFA aerosol inhaler 2 puff IH QID PRN (Reason: shortness of breath or wheezing) Qty: 8 0RF Discharge Instructions Instructions: Food Impaction (ED) Additional Instructions: You were seen for a need impaction which likely passed after some medications and carbonated beverage. We will have you follow-up with surgery as you have no previous endoscopy which should be completed to make sure there is no significant abnormality with the esophagus. Return to ED for further problems with same if unable to pass at home. Referrals: [facility] [Provider Group] - 2 weeks Medical Decision Making Patient presenting with meat impaction of the proximal esophagus but no airway compromise. IV is in place by ambulance. We will give 1 mg glucagon and sublingual nitroglycerin. If no improvement will try carbonated beverage. Patient did not initially have resolution of symptoms with glucagon and nitroglycerin. However after carbonated beverages impaction seem to have passed. He was able to drink an entire can of Diet Coke as well as a cup of water. He is feeling better. He has not had endoscopy in the past despite what he claims to be frequent impactions that he passed after some time at home. I will refer him to surgery clinic for upper endoscopy to rule out any significant pathology of the esophagus. Return precautions provided. HPI General Mode of arrival: EMS . Date/Time Provider Initiated Documentation: 01/22/23 18:48 . Limitations to Documentation: no limitations . Information obtained by: patient . HPI Narrative: Patient presents to ED by ambulance with inability to swallow due to meat impaction after eating being still this evening. He is not having any difficulty breathing. His voice is normal. He is unable to even swallow his own saliva at this point. This has happened previously but it typically passes down on its own. Randy is not able to get the stuck food to pass. Related Data Home Medications Medication Instructions Recorded Confirmed epinephrine 0.3 mg/0.3 mL 0.3 mg (0.3 mL) IJ PRN PRN ##2 01/15/19 01/22/23 injection, auto-injector (EpiPen 2-Yoshi) albuterol sulfate 90 mcg/actuation 2 puff inhalation QID PRN 03/01/22 01/22/23 aerosol inhaler shortness of breath or wheezing #8 grams hydrocodone 5 mg-acetaminophen 325 1 tab PO .COMPLEX PRN pain #91 tabs 11/13/22 01/22/23 mg tablet Previous Rx's Medication Instructions Recorded epinephrine 0.3 mg/0.3 mL 0.3 mg (0.3 mL) IJ PRN PRN ##2 01/15/19 injection, auto-injector (EpiPen 2-Yoshi) albuterol sulfate 90 mcg/actuation 2 puff inhalation QID PRN 03/01/22 aerosol inhaler shortness of breath or wheezing #8 grams hydrocodone 5 mg-acetaminophen 325 1 tab PO .COMPLEX PRN pain #91 tabs 11/13/22 mg tablet Allergies Allergy/AdvReac Type Severity Reaction Status Date / Time ketorolac AdvReac Intermediate Nausea Verified 11/20/22 21:54 cyclobenzaprine AdvReac Mild nausea Verified 11/20/22 21:54 [Cyclobenzaprine] ibuprofen AdvReac Mild nausea Verified 11/20/22 21:54 naproxen AdvReac Mild Nausea Verified 11/20/22 21:54 General Stated Complaint: ThroatFB BULL: 2 Review of Systems Narrative: Per HPI PFSH All Active Problems (Updated 01/22/23 @ 19:42 by Giuseppe Nagel MD) Food impaction of esophagus (Acute) Chronic pain of right ankle (Acute) Pain in inferior right lower extremity (Acute) Pain of left lower extremity (Acute) Painful orthopaedic hardware (Acute) 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 Status post excision. Continues to smoke. Tobacco use (Acute) Xerostomia (Acute) Throat pain (Acute) Post-operative pain (Acute) Wrist pain, right (Acute) Oropharyngeal dysphagia (Acute) Difficulty breathing (Acute) Anxiety (Chronic) Pulmonary emphysema (Acute) Angioedema (Acute) Superficial thrombophlebitis of arm (Acute) Back pain (Acute) Medical History Arthritis Attention deficit hyperactivity disorder Chronic obstructive lung disease DVT (deep venous thrombosis) Tobacco dependence, continuous Surgical History Appendectomy Endoscopic Carpal Tunnel release H/O ankle fusion 4 total surgeries Repair of inguinal hernia right Family History Father Personal history of malignant neoplasm Liver CA Diabetes Paternal Uncle Alcohol abuse Maternal Uncle Alcohol abuse Sister Hypertension Other Cancer Social History Smoking/Tobacco Use Status: Current every day Tobacco Type: cigarettes Tobacco: How many years used: 20 Smoking risk assessment performed?: Yes Alcohol Intake: current Alcohol Intake frequency: holidays/special occasions only Alcohol type: other Drug use: Occasionally Substance use type: marijuana Adopted: No Caregiver/Support person: No Foster care: No Household members: none Housing: apartment Number of Children: 1 Do you need help understanding health information?: Often current occupation: Disabled Sexually active: Yes Do you think of yourself as: straight/heterosexual Current gender identity: male What type of physical activity do you participate in: bicycling and additional Details: rides bike in the summer. 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 HEENT: NC/AT. Normal facial exam. Eyes: Normal conjunctiva and sclera. Neck: Supple. Trachea midline. Normal voice and no stridor. Lungs: Normal respiratory effort. Neuro: A+O x 3. Normal speech, mentation, gait. Cranial nerves II - XII grossly intact. No gross motor or sensory deficit. Ext: No C/C/E. Skin: Warm and dry without rash. Course Vital Signs Vital signs: Vital Signs Temperature 97.3 F L 01/22/23 18:42 Respiratory Rate 18 01/22/23 18:42 Blood Pressure 124/76 01/22/23 18:42 Pulse Oximetry 92 01/22/23 18:42 Temperature 97.3 F L 01/22/23 18:42 Temperature Source Oral 01/22/23 18:42 Pulse 83 01/22/23 19:00 Respiratory Rate 18 01/22/23 19:00 Respiratory Effort Normal, Non-Labored 01/22/23 19:01 Respiratory Pattern Normal 01/22/23 18:57 Blood Pressure 127/95 H 01/22/23 19:00 Blood Pressure Position Sitting 01/22/23 18:42 Pulse Oximetry 96 01/22/23 19:00 Oxygen Delivery Method Room Air 01/22/23 19:00 Oxygen Flow Rate 0 01/22/23 19:00
[2023-01-22 20:00] VITALS: BP 121/80; PULSE 59; RESP 16; O2SAT 96
== END 2023-01-22 20:05 | disposition home or self-care (01) ==
LOC: ER 20:10
PROVIDERS: Emergency Provider Emergency Medicine; PCP Family Medicine
DX: T18.128A Food in esophagus causing other injury, initial encounter (principal); X58.XXXA Exposure to other specified factors, initial encounter
CPT/HCPCS: 99283; J1610

== ENCOUNTER 2023-05-23 10:39 | Emergency (ER) | payer MEDICARE, SELFPAY ==
--- NOTE | 2023-05-23 10:43 | ED.GENADUL_ITS ---
Discharge Plan Disposition Patient Disposition: Home Condition: Stable Discharge Details Clinical Impression: COVID-19, Otitis media Primary Care Provider: Delmar Day ED Provider: Soren Robledo Home Meds and New Rx's Prescriptions: New amoxicillin 875 mg tablet 875 mg PO BID 7 Days Qty: 14 0RF Continued hydrocodone-acetaminophen 5-325 mg tablet 1 tab PO .COMPLEX MDD 17.5 mg PRN (Reason: pain) Qty: 91 0RF Rx Instructions: 1 tab orally t1 tab tid prn, may take an extra 1/2 tab at night up to 14 nights per month PRN; hydrocodone-acetaminophen 5-325 mg tablet 1 tab PO .COMPLEX MDD 17.5 mg PRN (Reason: pain) Qty: 91 0RF Patient Comments: pt states not taking 01/22/23 Rx Instructions: t1 tab tid, may take occassional extra 1/2 tab prn qhs up to 14 nights per month; hydrocodone-acetaminophen 5-325 mg tablet 1 tab PO .COMPLEX MDD 17.5 mg PRN (Reason: pain) Qty: 91 0RF Rx Instructions: 1 tab orally t1 tab tid prn, may take 1/2 tab qhs up to 14 nights per month PRN; epinephrine [EpiPen 2-Ysohi] 0.3 MG/0.3 ML auto-injector 0.3 mg IJ PRN PRNQty: 2 5RF No Action albuterol sulfate 90 mcg/actuation HFA aerosol inhaler 2 puff IH QID PRN (Reason: shortness of breath or wheezing) Qty: 8 0RF Discharge Instructions Instructions: Amoxicillin (By mouth), Ear Infection (ED), COVID-19 (Coronavirus Disease 2019) (ED) Additional Instructions: You were seen in the emergency department for your likely ear infection that is worse on the right with some mild hearing diminishment. Your tympanic membrane did look quite erythematous and I think it is reasonable to treat with amoxicillin for an ear infection, concurrently you also have COVID-19 which is likely a respiratory symptoms of cough. Please take regular dosings of Tylenol and ibuprofen, use your at home asthma treatments and take the antibiotics as directed, prescriptions were sent to [facility] in [facility]. Please use therapeutic dosing of Tylenol (acetamenophen) & Advil (ibuprofen) in an alternating fashion as follows: Take 1000mg of Tylenol every 6 hours without missing doses- that is 4 times per day. [facility] in between the Tylenol dosings, take 400-600mg of Advil also on a 6 hour schedule, that is also 4 times per day. The daily maximum dosing of Tylenol is 4000mg, and the daily maximum dosing of Advil is 2400mg. This is safe to do for weeks. Please note that some common cold medications & prescription pain medications may contain acetamenophen and you need to read OTC drug labels and factor that in to maximum daily dosings. Please return to the emergency department for any severe increase in respiratory distress or worsening despite treatment. Referrals: Delmar Day DO [Primary Care Provider] - Discharge Data Discharge Date/Time-TO BE ENTERED AT DEPARTURE: 05/23/23 13:02 Medical Decision Making This dictation utilizes [id number] dictation software and may contain unedited grammatical errors. 52 y/o M presents to ED today with a chief complaint of ear aches worse on the R, generalized cough/cold symptoms. Onset and characteristics include one week ago, endorses mild hearing diminishment- denies high fevers/SOB. Patient has relevant history of COPD. Family and social history: tobacco use. Pertinent exam findings / vital signs include lungs CTA, nontoxic vitals, no acute distress, R TM erythematous and bulging. Differential / pathologies of concern include otitis media, viral syndrome, Covid-19, not hypoxemic respiratory failure. Diagnostic studies of: -Covid-19 PCR - positive. basic labs - lactate WNL -no leukocytosis Interventions of: -amoxicillin for empiric treatment for R otitis media, likely concurrent with Covid-19 infection, but with his unilateral symptoms treatment is warranted. ED Course: Patient presents with 1 week onset of generalized cold symptoms, he is positive for COVID-19, he also has earaches with mild diminishment of hearing with findings on physical exam consistent with a right otitis media which I am beginning treatment with amoxicillin, I counseled the patient on strict return criteria for any respiratory distress or high fevers not responding to Tylenol and ibuprofen. Findings not consistent with hypoxemic respiratory failure, sepsis, TM perforation, mastoiditis. Disposition of Covid-19, Otitis Media. Patient verbalized understanding of the plan and return to ED criteria and eng aged in shared decision making. Medical Records Medical records reviewed: Yes I reviewed the patient's medical records. Lab Data Labs: Laboratory Tests Range/Units 05/23/23 11:58 WBC (4.4-10.8) 10^3/uL 10.47 RBC (4.36-5.78) 10^6/uL 5.23 Hgb (13.5-17.5) g/dL 15.6 Hct (40.0-50.0) % 46.7 MCV (80-95) fL 89 MCH (27.0-33.0) pg 29.8 MCHC (32.0-36.0) % 33.4 RDW (11.8-14.1) % 12.3 Plt Count (130-400) 10^3/uL 234 MPV (8.0-11.0) fL 9.6 Immature Gran % 0.3 Neutrophils % 59.3 Lymphocytes % 28.0 Monocytes % 7.0 Eosinophils % 4.7 Basophils % 0.7 Nucleated RBC % (0.0-0.3) % 0.0 Absolute Neutrophils (1.2-6.7) 10^3/uL 6.22 Absolute Lymphocytes (1.2-3.4) 10^3/uL 2.93 Absolute Monocytes (0.1-0.8) 10^3/uL 0.73 Absolute Eosinophils (0.0-0.7) 10^3/uL 0.49 Absolute Basophils (0.0-0.2) 10^3/uL 0.07 VBG Lactate (0.6-1.4) mmol/L 1.3 Sodium (136-145) mmol/L 137 Potassium (3.5-5.1) mmol/L 3.8 Chloride (98-107) mmol/L 104 Carbon Dioxide (21.0-32.0) mmol/L 25.0 Anion Gap (3-11) mmol/L 8.0 BUN (7-18) mg/dL 14 Creatinine (0.70-1.30) mg/dL 0.9 Est GFR (CKD-EPI 2020) (mL/min/1.73m2) 104.05 Glucose (74-106) mg/dL 112 H Calcium (8.5-10.1) mg/dL 9.2 Total Bilirubin (0.2-1.0) mg/dL 0.3 AST (15-37) U/L 21 ALT (16-63) U/L 36 Alkaline Phosphatase (46-116) U/L 78 Total Protein (6.4-8.2) g/dL 7.6 Albumin (3.4-5.0) g/dL 3.4 HPI General Date/Time Provider Initiated Documentation: 05/23/23 10:43 . HPI Narrative: 52 year-old male presents to ED today by POV/ambulating with a chief complaint of cough for one week, ear eaches with slightly diminished hearing - feels congested. Quality described as generalized malaise, cough, ear aches, no radiation to shortness of breath, syncope, chest pain, high fevers, nausea/vomiting, abdominal pain. Severity is described as 7/10. Palliating factors include OTC cold medicines without relief. Provoking factors include nothing specific. Events leading up to the incident/Associated Symptoms: Patient is vaccinated for Covid-19. Patient not anticoagulated. Related Data Home Medications Medication Instructions Recorded Confirmed epinephrine 0.3 mg/0.3 mL 0.3 mg (0.3 mL) IJ PRN PRN ##2 01/15/19 05/07/23 injection, auto-injector (EpiPen 2-Yoshi) hydrocodone 5 mg-acetaminophen 325 1 tab PO .COMPLEX PRN pain #91 tabs 05/07/23 05/07/23 mg tablet hydrocodone 5 mg-acetaminophen 325 1 tab PO .COMPLEX PRN pain #91 tabs 05/07/23 05/07/23 mg tablet hydrocodone 5 mg-acetaminophen 325 1 tab PO .COMPLEX PRN pain #91 tabs 05/07/23 05/07/23 mg tablet amoxicillin 875 mg tablet 875 mg PO BID 7 days #14 tabs 05/23/23 albuterol sulfate 90 mcg/actuation 2 puff inhalation QID PRN 05/24/23 aerosol inhaler shortness of breath or wheezing #8 grams Previous Rx's Medication Instructions Recorded epinephrine 0.3 mg/0.3 mL 0.3 mg (0.3 mL) IJ PRN PRN ##2 01/15/19 injection, auto-injector (EpiPen 2-Yoshi) hydrocodone 5 mg-acetaminophen 325 1 tab PO .COMPLEX PRN pain #91 tabs 05/07/23 mg tablet hydrocodone 5 mg-acetaminophen 325 1 tab PO .COMPLEX PRN pain #91 tabs 05/07/23 mg tablet hydrocodone 5 mg-acetaminophen 325 1 tab PO .COMPLEX PRN pain #91 tabs 05/07/23 mg tablet amoxicillin 875 mg tablet 875 mg PO BID 7 days #14 tabs 05/23/23 albuterol sulfate 90 mcg/actuation 2 puff inhalation QID PRN 05/24/23 aerosol inhaler shortness of breath or wheezing #8 grams Allergies Allergy/AdvReac Type Severity Reaction Status Date / Time ketorolac AdvReac Intermediate Nausea Verified 05/23/23 10:51 cyclobenzaprine AdvReac Mild nausea Verified 05/23/23 10:51 [Cyclobenzaprine] ibuprofen AdvReac Mild nausea Verified 05/23/23 10:51 naproxen AdvReac Mild Nausea Verified 05/23/23 10:51 General BULL: 2 Review of Systems All systems reviewed & are unremarkable except as noted in HPI and below PFSH All Active Problems (Updated 05/23/23 @ 12:41 by CAM Engel) Otitis media (Acute) COVID-19 (Acute) Nonunion of subtalar arthrodesis (Acute) [facility] [place] [facility] [place]23 Chronic pain of right ankle (Acute) Pain in inferior right lower extremity (Acute) Pain of left lower extremity (Acute) Painful orthopaedic hardware (Acute) senior living prescription opiate use (Chronic) UDS consistently negative, confirmation analysis consistently positive Lumbar radiculopathy (Acute) Sensorineural hearing loss of both ears (Acute) Tinnitus (Acute) Chronic back pain (Acute) Eardrum rupture, left (Acute) Blunt head trauma (Acute) Right leg numbness (Acute) Acute back pain (Acute) Patellofemoral pain syndrome of left knee (Acute) steroid injection: 05/07/2020 Tobacco abuse (Acute) Lesion of uvula (Acute) history of uvula with squamous atypia. Status post excision. Continues to smoke. Tobacco use (Acute) Xerostomia (Acute) Throat pain (Acute) Post-operative pain (Acute) Wrist pain, right (Acute) Oropharyngeal dysphagia (Acute) Difficulty breathing (Acute) Anxiety (Chronic) Pulmonary emphysema (Acute) Angioedema (Acute) Superficial thrombophlebitis of arm (Acute) Back pain (Acute) Medical History Arthritis Attention deficit hyperactivity disorder Chronic obstructive lung disease DVT (deep venous thrombosis) Tobacco dependence, continuous Surgical History Appendectomy Endoscopic Carpal Tunnel release H/O ankle fusion 4 total surgeries Repair of inguinal hernia right Family History Father Personal history of malignant neoplasm Liver CA Diabetes Paternal Uncle Alcohol abuse Maternal Uncle Alcohol abuse Sister Hypertension Other Cancer Social History Smoking/Tobacco Use Status: Current every day Tobacco Type: cigarettes Tobacco: How many years used: 20 Smoking risk assessment performed?: Yes Alcohol Intake: current Alcohol Intake frequency: holidays/special occasions only Alcohol type: other Drug use: Occasionally Substance use type: marijuana Adopted: No Caregiver/Support person: No Foster care: No Household members: none Housing: apartment Number of Children: 1 Do you need help understanding health information?: Often current occupation: Disabled Sexually active: Yes Do you think of yourself as: straight/heterosexual Current gender identity: male What type of physical activity do you participate in: bicycling and additional Details: rides bike in the summer. Seatbelt use: always Drive intox or ride w/intox bulk driver: No Do you feel safe at home: Yes Do you feel safe in your relationship?: Yes Exam Narrative Exam Narrative: GENERAL APPEARANCE: Well-nourished, non-toxic, awake and alert, atraumatic, no acute distress. SKIN: Warm, pink, dry, intact, without rashes/lesions/ulcerations. HEAD: Normocephalic, atraumatic, normal hair distribution for gender/age. EYES: Pupils PERRLA, EOMs intact without nystagmus, normal conjunctiva, no exudates on lids/lashes. ENT: Nares patent, no circumoral cyanosis, no facial swelling, R TM bulging and erythematous, L TM WNL NECK: Supple, trachea midline, painless cervical ROM. LUNGS/CHEST: Lungs CTA bilaterally- no rhonchi/rales/wheezes diffusely, non- labored respirations, normal A/P diameter, symmetrical expansion, no chest wall deformity HEART (CV/PV): Regular rate and rhythm without murmur, no peripheral edema, no JVD. ABDOMEN: Soft, non-distended, no guarding. MSK: Normal ROM, no swelling/deformity to bilateral UEs or LEs, moving all extremities without weakness, no cyanosis, spine midline without tenderness, normal curvature. NEURO: Mental Status AAOx4 - alert to person, place, time, events No facial droop, no forehead involvement. Motor: No focal weakness - strength 5/5 in bilateral UEs and LEs, proximal and distal, symmetric. Sensory: sensation intact to light touch globally. Gait normal: patient ambulated without ataxia into ED room. PSYCH: euthymic, cooperative, pleasant, appropriate speech
[2023-05-23 10:48] VITALS: BP 134/85; PULSE 71; RESP 18; TEMP 36.7; O2SAT 97
[2023-05-23 10:51] VITALS: BP 134/85; PULSE 71; RESP 18; TEMP 36.7; O2SAT 97
[2023-05-23] MEDS: Dexamethasone 4 MG TAB 8 MG PO (12:02)
[2023-05-23] MEDS: Acetaminophen 500 MG TAB 1000 MG PO (12:02)
[2023-05-23] MEDS: Ketorolac 10 MG TAB PO (12:03)
[2023-05-23 12:04] LABS: Abs Immature Grans 0.03 10^3/uL (0.0-0.06); Absolute Basophil Count 0.07 10^3/uL (0.0-0.2); Absolute Eosinophil Count 0.49 10^3/uL (0.0-0.7); Absolute Lymphocyte Count 2.93 10^3/uL (1.2-3.4); Absolute Monocyte Count 0.73 10^3/uL (0.1-0.8); Absolute Neutrophil Count 6.22 10^3/uL (1.2-6.7); Basophils % 0.7; Eosinophils % 4.7; HCT 46.7 % (40.0-50.0); HGB 15.6 g/dL (13.5-17.5); Immature Grans % 0.3; Lactate 1.3 mmol/L (0.6-1.4); MCH 29.8 pg (27.0-33.0); MCHC 33.4 % (32.0-36.0); MCV 89 fL (80-95); MPV 9.6 fL (8.0-11.0); Neutrophils % 59.3; Platelet Count 234 10^3/uL (130-400); RBC 5.23 10^6/uL (4.36-5.78); RDW 12.3 % (11.8-14.1); RDW-SD 40.5 fL; WBC 10.47 10^3/uL (4.4-10.8)
[2023-05-23 12:22] LABS: ALT 36 U/L (16-63); AST 21 U/L (15-37); Albumin 3.4 g/dL (3.4-5.0); Alkaline Phosphatase 78 U/L (46-116); BUN 14 mg/dL (7-18); Bilirubin, Total 0.3 mg/dL (0.2-1.0); CREATININE 0.9 mg/dL (0.70-1.30); Calcium 9.2 mg/dL (8.5-10.1); Chloride 104 mmol/L (98-107); Estimated GFR 104.05 (mL/min/1.73m2); Glucose 112 mg/dL (74-106); Potassium 3.8 mmol/L (3.5-5.1); Sodium 137 mmol/L (136-145); Total Protein 7.6 g/dL (6.4-8.2)
== END 2023-05-23 13:02 | disposition home or self-care (01) ==
PROVIDERS: Emergency Provider Physician Assistant; PCP Family Medicine
DX: U07.1 COVID-19 (principal); H66.91 Otitis media, unspecified, right ear; J44.9 Chronic obstructive pulmonary disease, unspecified; F17.210 Nicotine dependence, cigarettes, uncomplicated
CPT/HCPCS: 36415; 80053; 87426; 99283; 83605; 85025; J8540

== ENCOUNTER 2023-07-12 11:49 | Emergency (ER) | payer MEDICARE, SELFPAY ==
[2023-07-12 11:56] VITALS: BP 135/90; PULSE 70; RESP 16; TEMP 36.1; O2SAT 97
--- NOTE | 2023-07-12 12:09 | W.ED.GENAD ---
Discharge Plan Disposition Patient Disposition: Home Discharge Details Clinical Impression: Post-operative pain Primary Care Provider: Delmar Day ED Provider: Jaspreet Montgomery Home Meds and New Rx's Prescriptions: Continued albuterol sulfate 90 mcg/actuation HFA aerosol inhaler 2 puff IH QID PRN (Reason: shortness of breath or wheezing) Qty: 8.5 3RF epinephrine [EpiPen 2-Yoshi] 0.3 MG/0.3 ML auto-injector 0.3 mg IJ PRN PRNQty: 2 5RF oxycodone 5 mg tablet 5 mg PO Q4H PRN Patient Comments: TAKE ONE TABLET BY MOUTH EVERY 4 HOURS NEEDED FOR PAIN FOR UP TO 30 DOSES acetaminophen 500 mg capsule 1,000 mg PO Q4H PRN Discharge Instructions Additional Instructions: You are seen in the emergency department for your irritation after you are operation. Your x-ray showed that the hardware is in good position. As we discussed if you develop chest pain difficulty breathing worsening pain or have any other concerns please return to the emergency department. Otherwise please follow-up with your orthopedic surgery team as previously scheduled. Discharge Data Discharge Date/Time-TO BE ENTERED AT DEPARTURE: 07/12/23 14:14 HPI General Date/Time Provider Initiated Documentation: 07/12/23 12:07. HPI Narrative: MDM This is an overall very well-appearing normothermic and not tachycardic 52-year-old male postop day 3 status post right subtalar arthrodesis. Now with some complaint of irritation under the site of his splint and reports that it is rubbing. No proximal calf pain or shortness of breath or chest pain to suggest PE. Left toes warm and well-perfused so I am not concerned for critical limb ischemia so I do not feel that the patient requires a CT angiogram. No pain out of proportion to suggest necrotizing soft tissue infection. Will obtain x-rays to ensure that hardware has not migrated and touch base with orthopedics at [facility] [place]. I advised patient that if there was a risk if I opened his splint off and placed a new splint that I could not resolve his irritation. Given no fevers I am not concerned for cellulitis. Will touch base with orthopedics at [facility] [place] prior to taking down the patient splint. 2 PM I met with the patient. He did not want to wait to to have his splint removed. He was feeling improved following oral analgesia. He reported that he had enough of his oxycodone at home. I called the transfer center at [facility] [place] to resend my request for consultation with orthopedics. Will advise ED return for worsening pain fevers chest pain or shortness of breath. I showed patient a copy of his x-ray. We discussed return for fevers worsening pain numbness or tingling in his toes or any falls injuries to his right lower extremity. He understood his return indications and was discharged with an empiric trial of expectant outpatient management. 1. I explained the current situation and condition to the patient. 2. I explained the recommended treatment for this condition -consult with orthopedics at [facility] [place] with possibility of inspection of his surgical incision site 3. I explained the risk of not having the recommended treatment -possible missed irritation at surgical incision site 4. The patient understands this information has no questions, and repeated back this information. 5. The patient states that they need to leave and will return if symptoms worsen 6. Mental status is lucid and the patient has decision-making capacity. 7. Patient is withdrawing consent for care Chronic conditions affecting the care of the patient: N/A History obtained from an outside historian: Patient's mother External record review: [facility] [place] EMR Medications: Oxycodone, ibuprofen, acetaminophen Social determinants of health affecting disposition: N/A Management discussed with: Ortho [facility] [place] [place] Treatment/interventions considered: Splint removal but deferred based on patient preference Response to therapies provided: Improved symptoms following oral analgesia in the ED HPI This is a 52-year-old male who is 3 days status post right subtalar arthrodesis with complaints that he has worsening pain at the site of his incision. He said that the cast is rubbing on his incision. He has been taking his scheduled oxycodone and acetaminophen every 4 hours and is due for repeat doses now. He says that his pain is not worsened. He has had no shortness of breath. No proximal calf pain. No chest pain. No difficulty breathing. No fevers. No numbness or tingling to right foot. No history of recurrent trauma. No nausea nor vomiting. Exam General: Well-appearing in no acute distress speaking in complete sentences. Head: Normocephalic, atraumatic. Eye: Extraocular eye movements intact. No conjunctival injection. No scleral icterus. Ear, nose, mouth, throat: Grossly normal inspection. Normal voice, handling secretions normally. Neck: Trachea midline. Cardiovascular: Well-perfused distal extremities. Respiratory: Nonlabored respiration. Gastrointestinal: Nondistended abdomen. Musculoskeletal: Right lower extremity in a short leg splint. Toes warm well-perfused cap refill less than 2 seconds. No significant strikethrough on dressing. Right lower extremity is elevated on a pillow. Skin: Normal for age and race, grossly normal temperature and turgor. No acute rash. Neurologic: Alert and appropriate, no apparent acute deficits. Psychiatric: Mood and manner are appropriate. Grooming and personal hygiene are appropriate. Related Data Home Medications Medication Instructions Recorded Confirmed epinephrine 0.3 mg/0.3 mL 0.3 mg (0.3 mL) IJ PRN PRN ##2 01/15/19 07/12/23 injection, auto-injector (EpiPen 2-Yoshi) albuterol sulfate 90 mcg/actuation 2 puff inhalation QID PRN 06/01/23 07/12/23 aerosol inhaler shortness of breath or wheezing #8.5 grams acetaminophen 500 mg capsule 1,000 mg PO Q4H PRN 07/12/23 07/12/23 oxycodone 5 mg tablet 5 mg PO Q4H PRN 07/12/23 07/12/23 Previous Rx's Medication Instructions Recorded epinephrine 0.3 mg/0.3 mL 0.3 mg (0.3 mL) IJ PRN PRN ##2 01/15/19 injection, auto-injector (EpiPen 2-Yoshi) albuterol sulfate 90 mcg/actuation 2 puff inhalation QID PRN 06/01/23 aerosol inhaler shortness of breath or wheezing #8.5 grams Allergies Allergy/AdvReac Type Severity Reaction Status Date / Time ketorolac AdvReac Intermediate Nausea Verified 07/12/23 12:15 cyclobenzaprine AdvReac Mild nausea Verified 07/12/23 12:15 [Cyclobenzaprine] ibuprofen AdvReac Mild nausea Verified 07/12/23 12:15 naproxen AdvReac Mild Nausea Verified 07/12/23 12:15 General Stated Complaint: Orthopedic BULL: 4 PFSH All Active Problems (Updated 07/12/23 @ 14:06 by Jaspreet Montgomery MD) Post-operative pain (Acute) COVID-19 (Acute) Nonunion of subtalar arthrodesis (Acute) [facility] [place] [place] [facility] 05/13/23 Chronic pain of right ankle (Acute) Pain in inferior right lower extremity (Acute) Pain of left lower extremity (Acute) Painful orthopaedic hardware (Acute) nursing home prescription opiate use (Chronic) UDS consistently negative, confirmation analysis consistently positive Lumbar radiculopathy (Acute) Sensorineural hearing loss of both ears (Acute) Tinnitus (Acute) Chronic back pain (Acute) Eardrum rupture, left (Acute) Blunt head trauma (Acute) Right leg numbness (Acute) Acute back pain (Acute) Patellofemoral pain syndrome of left knee (Acute) steroid injection: 05/07/2020 Tobacco abuse (Acute) Lesion of uvula (Acute) history of uvula with squamous atypia. Status post excision. Continues to smoke. Tobacco use (Acute) Xerostomia (Acute) Throat pain (Acute) Post-operative pain (Acute) Wrist pain, right (Acute) Oropharyngeal dysphagia (Acute) Difficulty breathing (Acute) Anxiety (Chronic) Pulmonary emphysema (Acute) Angioedema (Acute) Superficial thrombophlebitis of arm (Acute) Back pain (Acute) Medical History Arthritis Attention deficit hyperactivity disorder Chronic obstructive lung disease DVT (deep venous thrombosis) Tobacco dependence, continuous Surgical History Appendectomy Endoscopic Carpal Tunnel release H/O ankle fusion 4 total surgeries Repair of inguinal hernia right Family History Father Personal history of malignant neoplasm Liver CA Diabetes Paternal Uncle Alcohol abuse Maternal Uncle Alcohol abuse Sister Hypertension Other Cancer Social History Smoking/Tobacco Use Status: Current every day Tobacco Type: cigarettes Tobacco: How many years used: 20 Smoking risk assessment performed?: Yes Alcohol Intake: current Alcohol Intake frequency: holidays/special occasions only Alcohol type: other Drug use: Occasionally Substance use type: marijuana Adopted: No Caregiver/Support person: No Foster care: No Household members: none Housing: apartment Number of Children: 1 Do you need help understanding health information?: Often current occupation: Disabled Sexually active: Yes Do you think of yourself as: straight/heterosexual Current gender identity: male What type of physical activity do you participate in: bicycling and additional Details: rides bike in the summer. Seatbelt use: always Drive intox or ride w/intox local city driver: No Do you feel safe at home: Yes Do you feel safe in your relationship?: Yes Course Vital Signs Vital signs: Vital Signs Temperature 36.1 C L 07/12/23 11:56 Pulse 70 07/12/23 11:56 Respiratory Rate 16 07/12/23 11:56 Blood Pressure 135/90 07/12/23 11:56 Pulse Oximetry 97 07/12/23 11:56 Temperature 36.1 C L 07/12/23 11:56 Temperature Source Tympanic 07/12/23 11:56 Pulse 70 07/12/23 11:56 Respiratory Rate 16 07/12/23 11:56 Blood Pressure 135/90 07/12/23 11:56 Pulse Oximetry 97 07/12/23 11:56 Oxygen Delivery Method Room Air 07/12/23 11:56 Oxygen Flow Rate 0 07/12/23 11:56
--- NOTE | 2023-07-12 12:15 | DI.RAD_ITS ---
Exam(s) XR ANKLE RT COMPLETE EXAM: XR ANKLE RT COMPLETE CLINICAL HISTORY: Right ankle pain. TECHNIQUE: 2D digital imaging was performed. Three views. COMPARISON: CR XR ANKLE RT COMPLETE from 11/27/2022 FINDINGS: Cast in place which somewhat obscures the bony detail. Resection of distal fibula. New hardware has been in place spanning the distal fibula through calcan eus. Previously noted fractured screws have been partially removed. IMPRESSION: Postsurgical changes. DATA REPOSITORY: RADIATION DOSE DELIVERED:
[2023-07-12] MEDS: oxyCODONE 5 MG TAB PO (12:32)
[2023-07-12] MEDS: Acetaminophen 500 MG TAB 1000 MG PO (12:33)
[2023-07-12] MEDS: Ibuprofen 600 MG TAB PO (12:33)
--- NOTE | 2023-07-12 13:20 | DI.VRAD_ITS ---
PROCEDURE INFORMATION: Exam: XR Right Ankle Exam date and time: 07/12/2023 12:46 PM Age: 52 years old Clinical indication: Prior surgery; Surgery date: 6+ months; Surgery type: Ankle FX in 2019 from 30ft fall; Patient HX: Right ankle pain, S/P cast change; Additional info: Surgery from 30ft in 2019 TECHNIQUE: Imaging protocol: Radiologic exam of the right ankle. Views: 3 or more views. COMPARISON: CR XR ANKLE RT COMPLETE 11/27/2022 1:29 PM FINDINGS: Bones/joints: Resection of the distal fibula. New lateral plate with screws in the distal tibia, talus and calcaneus. Removal of fractured subtalar fusion hardware. Soft tissues: Swelling. Other findings: Plaster cast material. IMPRESSION: Postsurgical changes. Dictated and Authenticated by: Torres Barron MD. Ordering:DAWN Vogel MD
== END 2023-07-12 14:14 | disposition home or self-care (01) ==
PROVIDERS: Emergency Provider Emergency Medicine; PCP Family Medicine
DX: M25.572 Pain in left ankle and joints of left foot (principal); G89.18 Other acute postprocedural pain; J44.9 Chronic obstructive pulmonary disease, unspecified; F17.210 Nicotine dependence, cigarettes, uncomplicated; Z86.718 Personal history of other venous thrombosis and embolism
CPT/HCPCS: 99283; 73610

== ENCOUNTER 2023-07-28 08:58 | Emergency (ER) | payer MEDICARE, SELFPAY ==
[2023-07-28 09:01] VITALS: BP 140/91; PULSE 100; RESP 20; TEMP 36.7; O2SAT 97
--- NOTE | 2023-07-28 09:17 | W.ED.GENAD ---
HPI General Date/Time Provider Initiated Documentation: 07/28/23 09:17. HPI Narrative: Patient presents to the emergency department after he was told by [facility] to go to the Ortho clinic where he had his cast revised. Patient had ankle surgery 2 weeks ago and states that he wants the cast removed. States that he is taking pain medication at home but he is always in pain. Denies any discoloration denies any numbness just reports pain when he sometimes bears weight. States that he was trying to remove the cast at home but could not do it and came to the emergency department Related Data Home Medications Medication Instructions Recorded Confirmed epinephrine 0.3 mg/0.3 mL 0.3 mg (0.3 mL) IJ PRN PRN ##2 01/15/19 07/28/23 injection, auto-injector (EpiPen 2-Yoshi) albuterol sulfate 90 mcg/actuation 2 puff inhalation QID PRN 06/01/23 07/28/23 aerosol inhaler shortness of breath or wheezing #8.5 grams acetaminophen 500 mg capsule 1,000 mg PO Q4H PRN 07/12/23 07/28/23 hydrocodone 5 mg-acetaminophen 325 1 tab PO Q4H PRN 07/28/23 07/28/23 mg tablet Previous Rx's Medication Instructions Recorded epinephrine 0.3 mg/0.3 mL 0.3 mg (0.3 mL) IJ PRN PRN ##2 01/15/19 injection, auto-injector (EpiPen 2-Yoshi) albuterol sulfate 90 mcg/actuation 2 puff inhalation QID PRN 06/01/23 aerosol inhaler shortness of breath or wheezing #8.5 grams Allergies Allergy/AdvReac Type Severity Reaction Status Date / Time ketorolac AdvReac Intermediate Nausea Verified 07/28/23 09:03 cyclobenzaprine AdvReac Mild nausea Verified 07/28/23 09:03 [Cyclobenzaprine] ibuprofen AdvReac Mild nausea Verified 07/28/23 09:03 naproxen AdvReac Mild Nausea Verified 07/28/23 09:03 General Stated Complaint: GenMedical BULL: 4 Review of Systems Narrative: Review of Systems: Constitutional: No fevers, chills, sweats Eye: No recent visual problems ENT: No ear pain, nasal congestion, sore throat Respiratory: No shortness of breath, cough Cardiovascular: No Chest pain, palpitations, syncope Gastrointestinal: No nausea, vomiting, diarrhea Genitourinary: No hematuria Ahsan/Lymph: Negative for bruising tendency, swollen lymph glands Endocrine: Negative for excessive thirst, excessive hunger Musculoskeletal: No back pain, neck pain, joint pain, muscle pain, decreased range of motion Integumentary: No rash, pruritus, abrasions Neurologic: Alert & oriented X 4 Psychiatric: No anxiety, depression PFSH All Active Problems (Updated 07/28/23 @ 09:24 by Antwon Peters MD) Ankle pain, right (Acute) Post-operative pain (Acute) COVID-19 (Acute) Nonunion of subtalar arthrodesis (Acute) [facility] 05/13/23 Chronic pain of right ankle (Acute) Pain in inferior right lower extremity (Acute) Pain of left lower extremity (Acute) Painful orthopaedic hardware (Acute) 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 Status post excision. Continues to smoke. Tobacco use (Acute) Xerostomia (Acute) Throat pain (Acute) Post-operative pain (Acute) Wrist pain, right (Acute) Oropharyngeal dysphagia (Acute) Difficulty breathing (Acute) Anxiety (Chronic) Pulmonary emphysema (Acute) Angioedema (Acute) Superficial thrombophlebitis of arm (Acute) Back pain (Acute) Medical History Tobacco dependence, continuous Attention deficit hyperactivity disorder Chronic obstructive lung disease Arthritis DVT (deep venous thrombosis) Surgical History H/O ankle fusion 4 total surgeries 07/09/23 Repair Nonunion Tarsal Bones Right 07/09/23 Arthrodesis, Subtalar Right Repair of inguinal hernia right Endoscopic Carpal Tunnel release Appendectomy Family History Father Personal history of malignant neoplasm Liver CA Diabetes Paternal Uncle Alcohol abuse Maternal Uncle Alcohol abuse Sister Hypertension Other Cancer Social History Smoking/Tobacco Use Status: Current every day Tobacco Type: cigarettes Tobacco: How many years used: 20 Smoking risk assessment performed?: Yes Alcohol Intake: current Alcohol Intake frequency: holidays/special occasions only Alcohol type: other Drug use: Occasionally Substance use type: marijuana Adopted: No Caregiver/Support person: No Foster care: No Household members: none Housing: apartment Number of Children: 1 Do you need help understanding health information?: Often current occupation: Disabled Sexually active: Yes Do you think of yourself as: straight/heterosexual Current gender identity: male What type of physical activity do you participate in: bicycling and additional Details: rides bike in the summer. Seatbelt use: always Drive intox or ride w/intox city driver: No Do you feel safe at home: Yes Do you feel safe in your relationship?: Yes Exam Narrative Exam Narrative: Exam; vitals signs as reported above normal Constitutional; In no acute distress, afebrile General: cooperative, healthy appearing, comfortable and no acute distress HEENT: Head: normal to inspection, no palpable skull fracture and normocephalic atraumatic Eyes: : appearance normal, both eyes and all related structures EOM intact bilaterally Pupils: PERRL : conjunctiva normal Direct ophthalmoscopy: normal light reflex, normal conjunctiva, normal visual acuity Ears: Normal TM, normal external canal Nose: normal no rhinorreha Neck no JVD, supple non tender Neck: normal visual inspection, full ROM and no lymphadenopathy Chest: normal inspection of the chest Respiratory : normal respiratory effort and able to speak in complete sentences no wheezing no rales Cardio Rate: regular rate, rhythm: regular rhythm normal heart sounds S1 and S2 no murmurs, gallops, or rubs GI : normal to inspection, normal bowel sounds, soft, non tender, non distended, no organomegaly Back/Spine/ no CVA tenderness Thoracic/Lumbar Spine: no tenderness or deformities Skin no rashes or lesions Neuro: patient alert oriented x 4 and no meningeal signs, Cranial Nerves: CN's II-XI intact bilaterally, Cognition: normal cognition, Speech: speech normal, Gait: normal gait, Depp tendon reflexes normal 2+ muscle strength 5/5 bilaterally Extremities, right lower extremity with cast with visible toes which have a great capillary refill good perfusion no cyanosis no tenderness to palpation no edema dorsalis pedis pulse can be palpated under the cast there is no abnormality there is no foul order Course Vital Signs Vital signs: Vital Signs Temperature 36.7 C 07/28/23 09:01 Pulse 100 H 07/28/23 09:01 Respiratory Rate 20 07/28/23 09:01 Blood Pressure 140/91 H 07/28/23 09:01 Pulse Oximetry 97 07/28/23 09:01 Temperature 36.7 C 07/28/23 09:01 Temperature Source Skin 07/28/23 09:01 Pulse 100 H 07/28/23 09:01 Respiratory Rate 20 07/28/23 09:01 Blood Pressure 140/91 H 07/28/23 09:01 Blood Pressure Position Sitting 07/28/23 09:01 Pulse Oximetry 97 07/28/23 09:01 Oxygen Delivery Method Room Air 07/28/23 09:01 Oxygen Flow Rate 0 07/28/23 09:01 Pain Level 9 07/28/23 09:01 Medical Decision Making Patient presents to the emergency department exam the cast removed and he has an appointment at [facility] to do a revision but not a removal. I told him that at this time he needs to go back to his Ortho and he states he will arrange transportation there today. He requested pain medication in the ED. Patient also very anxious and states that he hates cast. At this time there is no concern of a compartment syndrome for he has good capillary refill there is no numbness and he has pain in his ankle and not his foot she states this has improved since surgery but he states that he is very apprehensive of having his cast. Advised that he is to go back to his orthopedist as he was instructed this morning to go to [facility]. He originally told that he had no transportation but when I advised that he was getting get an IM morphine injection and states that he has a friend that brought him here to the ER. Medical Records Medical records reviewed: Yes I reviewed the patient's medical records. Quality:[facility] Health Related Social Needs: No Data to Display Discharge Plan Disposition Patient Disposition: Home Condition: Improving Discharge Details Clinical Impression: Post-operative pain, Ankle pain, right Primary Care Provider: [facility] ED Provider: Antwon Peters Meds and New Rx's Prescriptions: Continued albuterol sulfate 90 mcg/actuation HFA aerosol inhaler 2 puff IH QID PRN (Reason: shortness of breath or wheezing) Qty: 8.5 3RF epinephrine [EpiPen 2-Yoshi] 0.3 MG/0.3 ML auto-injector 0.3 mg IJ PRN PRNQty: 2 5RF acetaminophen 500 mg capsule 1,000 mg PO Q4H PRN hydrocodone-acetaminophen 5-325 mg tablet 1 tab PO Q4H PRN Discharge Instructions Instructions: Leg Pain (ED) Discharge Data Discharge Physician: Antwon Peters
[2023-07-28] MEDS: MORPHine 4 MG/ML SYR IM (09:40)
[2023-07-28 09:43] VITALS: BP 140/91; PULSE 100; RESP 20; TEMP 36.7; O2SAT 97
--- NOTE | 2023-07-28 13:26 | PDOC.CMPRO ---
Date of service: 07/28/23 Time of Service: 13:26 Care Management Progress Note Progress Note Text Progress Note Text: SUZY received call from James at direction of ED staff. James requested transport support to [facility] to have his cast removed, stating I'm ready to cut it off. James reviewed need for cast and almost constant struggle with tolerating it. He presented to the ED via private vehicle with a friend, was advised [facility] could not remove the cast, and returned home. Per report, James called the ED multiple times advocating to have the cast removed. CM called [facility] who stated they were unlikely to be able to provide a auto crane driver, and required 24 hour notice for transports. SUZY talked to ED provider who stated patient wishes were not medically indicated at this time, and decision making central to care of the cast is managed by [facility]. SUZY spoke with James again, and encouraged he outreach to [facility] and his PCP for recommendations for cast and wound management.
== END 2023-07-28 09:50 | disposition home or self-care (01) ==
PROVIDERS: Emergency Provider Emergency Medicine Emergency Medical Services; PCP Family Medicine
DX: M25.571 Pain in right ankle and joints of right foot (principal); G89.18 Other acute postprocedural pain; F17.210 Nicotine dependence, cigarettes, uncomplicated
CPT/HCPCS: 96372; 99283; 99284; J2270

== ENCOUNTER 2024-01-24 16:15 | Outpatient (REF) | payer OTHER, SELFPAY ==
[2024-01-28 08:16] LABS: Cocaine Interpretation Positive.
== END 2024-01-24 16:16 | disposition home or self-care (01) ==
LOC: LBN 16:15
PROVIDERS: PCP Family Medicine; Visit Provider Family Medicine
DX: Z79.899 Other long term (current) drug therapy (principal)
CPT/HCPCS: 80353

== ENCOUNTER 2024-03-06 11:15 | Emergency (ER) | payer OTHER, SELFPAY ==
[2024-03-06 11:19] VITALS: PULSE 70; RESP 20; TEMP 35.9; O2SAT 95
--- NOTE | 2024-03-06 11:52 | ED.GENADUL_ITS ---
Discharge Plan Disposition Patient Disposition: Against Medical Advice Condition: Stable Discharge Details Chief Complaint: Nk/Back Pain Clinical Impression: Back pain Primary Care Provider: [facility] ED Provider: Stevan Baird Home Meds and New Rx's Prescriptions: No Action albuterol sulfate 90 mcg/actuation HFA aerosol inhaler 2 puff IH QID PRN (Reason: shortness of breath or wheezing) Qty: 8.5 3RF hydrocodone-acetaminophen 5-325 mg tablet 1 tab PO QDAY MDD 10 mg PRN (Reason: pain) Qty: 28 0RF epinephrine [EpiPen 2-Yoshi] 0.3 mg/0.3 mL auto-injector 0.3 mg IJ PRN PRN (Reason: anaphylaxis) Qty: 2 5RF acetaminophen 500 mg capsule 1,000 mg PO Q4H PRN HPI General Date/Time Provider Initiated Documentation: 03/06/24 11:48 . HPI Narrative: Atraumatic lower back pain, acute on chronic has been dealing with lower back pain for months to years, felt his back give out at home last night, pain rating down the left buttock into the leg. Denies fevers chills nausea vomiting or over the systemic signs of illness. Denies bowel or bladder issues Related Data Home Medications ?Medication ?Instructions ?Recorded ?Confirmed albuterol sulfate 90 mcg/actuation 2 puff inhalation QID PRN 06/01/23 03/06/24 aerosol inhaler shortness of breath or wheezing #8.5 grams acetaminophen 500 mg capsule 1,000 mg PO Q4H PRN 07/12/23 03/06/24 epinephrine 0.3 mg/0.3 mL 0.3 mg (0.3 mL) IJ PRN PRN 01/31/24 03/06/24 injection, auto-injector (EpiPen anaphylaxis ##2 2-Yoshi) hydrocodone 5 mg-acetaminophen 325 1 tab PO QDAY PRN pain #28 tabs 02/28/24 03/06/24 mg tablet Previous Rx's ?Medication ?Instructions ?Recorded albuterol sulfate 90 mcg/actuation 2 puff inhalation QID PRN 06/01/23 aerosol inhaler shortness of breath or wheezing #8.5 grams epinephrine 0.3 mg/0.3 mL 0.3 mg (0.3 mL) IJ PRN PRN 01/31/24 injection, auto-injector (EpiPen anaphylaxis ##2 2-Yoshi) hydrocodone 5 mg-acetaminophen 325 1 tab PO QDAY PRN pain #28 tabs 02/28/24 mg tablet Allergies Allergy/AdvReac Type Severity Reaction Status Date / Time ketorolac AdvReac Intermediate Nausea Verified 02/28/24 10:07 cyclobenzaprine AdvReac Mild nausea Verified 02/28/24 10:07 (Cyclobenzaprine) ibuprofen AdvReac Mild nausea Verified 02/28/24 10:07 naproxen AdvReac Mild Nausea Verified 02/28/24 10:07 General Stated Complaint: Nk/Back Pain BULL: 4 Exam Narrative Exam Narrative: Appears mildly uncomfortable Alert oriented interactive Full sentences no respiratory distress No midline spinal tenderness step-off crepitus deformity, patient does have left paraspinal lumbar discomfort and spasm Full range of motion upper and lower extremities bilaterally with full strength and sensation No external signs of trauma no ecchymosis no abrasions no contusions Course Vital Signs Vital signs: Vital Signs Temperature 35.9 C L 03/06/24 11:19 Pulse 70 03/06/24 11:19 Respiratory Rate 20 03/06/24 11:19 Pulse Oximetry 95 03/06/24 11:19 Temperature 35.9 C L 03/06/24 11:19 Pulse 70 03/06/24 11:19 Respiratory Rate 20 03/06/24 11:19 Respiratory Effort Normal 03/06/24 11:23 Pulse Oximetry 95 03/06/24 11:19 Oxygen Delivery Method Room Air 03/06/24 11:19 Oxygen Flow Rate 0 03/06/24 11:19 Pain Level 10 03/06/24 11:19 Medical Decision Making 53-year-old male presents with atraumatic acute on chronic lower back pain radiating down left buttock and leg, no bowel or bladder issues, afebrile nontoxic no midline spinal tenderness, no external signs of trauma, likely sciatica versus lumbar radiculopathy, low suspicion for spinal epidural abscess spinal epidural hematoma, spinal cord compression such as cauda equina or spinal column fracture. 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) [facility] 05/13/23 Chronic pain of right ankle (Acute) Pain in inferior right lower extremity (Acute) Pain of left lower extremity (Acute) Painful 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 Status post excision. Continues to smoke. Tobacco use (Acute) Xerostomia (Acute) Throat pain (Acute) Post-operative pain (Acute) Wrist pain, right (Acute) Oropharyngeal dysphagia (Acute) Difficulty breathing (Acute) Anxiety (Chronic) Pulmonary emphysema (Acute) Angioedema (Acute) Superficial thrombophlebitis of arm (Acute) Back pain (Acute) Medical History Tobacco dependence, continuous Attention deficit hyperactivity disorder Chronic obstructive lung disease Arthritis DVT (deep venous thrombosis) Surgical History H/O ankle fusion 4 total surgeries 07/09/23 Repair Nonunion Tarsal Bones Right 07/09/23 Arthrodesis, Subtalar Right Repair of inguinal hernia right Endoscopic Carpal Tunnel release Appendectomy Family History Father Personal history of malignant neoplasm Liver CA Diabetes Paternal Uncle Alcohol abuse Maternal Uncle Alcohol abuse Sister Hypertension Other Cancer Social History Smoking/Tobacco Use Status: Current every day Tobacco Type: cigarettes Tobacco: How many years used: 20 Smoking risk assessment performed?: Yes Alcohol Intake: current Alcohol Intake frequency: holidays/special occasions only Alcohol type: other Drug use: Occasionally Substance use type: marijuana Adopted: No Caregiver/Support person: No Foster care: No Household members: none Housing: apartment Number of Children: 1 Do you need help understanding health information?: Often current occupation: Disabled Sexually active: Yes Do you think of yourself as: straight/heterosexual Current gender identity: male What type of physical activity do you participate in: bicycling and additional Details: rides bike in the summer. 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
== END 2024-03-06 12:22 | disposition left against medical advice (07) ==
PROVIDERS: Emergency Provider Emergency Medicine; PCP Family Medicine
DX: M54.9 Dorsalgia, unspecified (principal); Z53.29 Procedure and treatment not carried out because of patient's decision for other reasons; J44.9 Chronic obstructive pulmonary disease, unspecified
CPT/HCPCS: 99282; 99284

== ENCOUNTER 2024-05-23 15:24 | Outpatient (REF) | payer OTHER, SELFPAY | END 2024-05-23 15:25 | disposition home or self-care (01) | LOC: LBN 15:24 | PROVIDERS: PCP Family Medicine; Visit Provider Family Medicine | DX: L03.115 Cellulitis of right lower limb (principal) | CPT/HCPCS: 87077; 87070; 87186; 87205 ==

== ENCOUNTER 2024-10-18 17:33 | Emergency (ER) | payer MEDICARE, SELFPAY ==
[2024-10-18 17:41] VITALS: BP 110/73; PULSE 90; RESP 20; TEMP 36.6; O2SAT 96
--- NOTE | 2024-10-18 17:45 | RT.EKG_ITS ---
APPROVED REPORT Exam: Resting ECG Reason for Exam: SOB Patient Location: E HR:75 bpm ECG Measurements Heart Rate 75 AXIS OR 159 P 45 QRSd 87 QRS -2 QT 392 T 44 QTc 438 Conclusion Sinus rhythm...normal P axis, V-rate 60- 99 Physician: No Stemi
--- NOTE | 2024-10-18 17:55 | DI.RAD_ITS ---
Exam(s) XR CHEST 2V PA LATERAL EXAM: XR CHEST 2V PA LATERAL CLINICAL HISTORY: SOB TECHNIQUE: 2D digital imaging was performed. Two views. COMPARISON: CR,XR XR CHEST 2V PA LATERAL from 11/20/2022 FINDINGS: HEART: Normal size. Aorta: Not dilated. PULMONARY VASCULATURE: Normal. MEDIASTINUM: Unremarkable. LUNGS: Question of patchy infiltrate projecting into the left lower lung field on the PA view. PLEURAL SPACE: No pleural effusion or pneumothorax. BONE:Unremarkable for age. SOFT TISSUES: Unremarkable. IMPRESSION: Question left lower lobe infiltrate. DATA REPOSITORY: RADIATION DOSE DELIVERED:
--- NOTE | 2024-10-18 17:57 | W.ED.GENAD ---
Discharge Plan Disposition Patient Disposition: Home Condition: Stable Discharge Details Clinical Impression: COPD (chronic obstructive pulmonary disease), Pneumonia Primary Care Provider: Delmar Day ED Provider: Mary Jerome Home Meds and New Rx's Prescriptions: New prednisone 50 mg tablet 50 mg PO DAILY 5 Days Qty: 5 0RF Rx Instructions: Take 1 tablet daily for the next 5 days doxycycline hyclate 100 mg tablet 100 mg PO BID 10 Days Qty: 20 0RF mupirocin 2 % ointment 1 applic topical BID 7 Days Qty: 15 0RF Rx Instructions: Apply to wound twice daily for the next 7 days No Action albuterol sulfate 90 mcg/actuation HFA aerosol inhaler 2 puff IH QID PRN (Reason: shortness of breath or wheezing) Qty: 8.5 3RF fluticasone propionate 50 mcg/actuation spray,suspension 2 spray intranasal DAILY Qty: 16 0RF Rx Instructions: administer into each nostril epinephrine [EpiPen 2-Yoshi] 0.3 mg/0.3 mL auto-injector 0.3 mg IJ PRN PRN (Reason: anaphylaxis) Qty: 2 5RF omeprazole 20 mg capsule,delayed release(DR/EC) 20 mg PO DAILY Qty: 30 1RF acetaminophen 500 mg capsule 1,000 mg PO Q4H PRN Discharge Instructions Instructions: COPD Exacerbation, Adult ED, Pneumonia, Adult ED, How to Use a Metered Dose Inhaler ED Additional Instructions: Chest x-ray shows that you may have a early left lower lobe pneumonia. No evidence for COVID flu or RSV. Please take the antibiotic with yogurt or a probiotic twice daily for the next 10 days as directed. Take the prednisone once a day for the next 5 days. Continue to keep the wound on your left arm clean and dry. He may place the antibiotic ointment on there twice daily for the next 7 days. Allow to air dry at least 1 to 2 hours a day. Follow up with primary care provider in 3-5 days. Return to ED sooner if any worsening or concerns. Thank you for allowing us to care for you today. Referrals: Delmar Day DO [Primary Care Provider] - 5 days HPI General Mode of arrival: ambulatory. Date/Time Provider Initiated Documentation: 10/18/24 17:52. Limitations to Documentation: no limitations. Information obtained by: patient, RN notes reviewed and old records reviewed. HPI Narrative: 54-year-old male presents to the ER with chief complaint of shortness of breath for the last 3 to 4 days. He reports cold-like symptoms, he is a smoker. He reports that he not take any inhalers or medications at home. He denies productive cough. Denies any fever or chills. Denies any pain. No swelling in his legs. Denies any drugs or alcohol. He reports shortness of breath at rest as well as with activity. Related Data Home Medications ?Medication ?Instructions ?Recorded ?Confirmed albuterol sulfate 90 mcg/actuation 2 puff inhalation QID PRN 06/01/23 10/18/24 aerosol inhaler shortness of breath or wheezing #8.5 grams acetaminophen 500 mg capsule 1,000 mg PO Q4H PRN 07/12/23 10/18/24 epinephrine 0.3 mg/0.3 mL 0.3 mg (0.3 mL) IJ PRN PRN 01/31/24 10/18/24 injection, auto-injector (EpiPen anaphylaxis ##2 2-Yoshi) fluticasone propionate 50 2 spray intranasal DAILY sinus 05/16/24 10/18/24 mcg/actuation nasal congestion #16 grams spray,suspension omeprazole 20 mg capsule,delayed 20 mg PO DAILY #30 caps 05/31/24 10/18/24 release doxycycline hyclate 100 mg tablet 100 mg PO BID 10 days #20 tabs 10/18/24 mupirocin 2 % topical ointment 1 applic topical BID Wound 7 days 10/18/24 #15 grams prednisone 50 mg tablet 50 mg PO DAILY Inflammation 5 days 10/18/24 #5 tabs Previous Rx's ?Medication ?Instructions ?Recorded albuterol sulfate 90 mcg/actuation 2 puff inhalation QID PRN 06/01/23 aerosol inhaler shortness of breath or wheezing #8.5 grams epinephrine 0.3 mg/0.3 mL 0.3 mg (0.3 mL) IJ PRN PRN 01/31/24 injection, auto-injector (EpiPen anaphylaxis ##2 2-Yoshi) fluticasone propionate 50 2 spray intranasal DAILY sinus 05/16/24 mcg/actuation nasal congestion #16 grams spray,suspension omeprazole 20 mg capsule,delayed 20 mg PO DAILY #30 caps 05/31/24 release doxycycline hyclate 100 mg tablet 100 mg PO BID 10 days #20 tabs 10/18/24 mupirocin 2 % topical ointment 1 applic topical BID Wound 7 days 10/18/24 #15 grams prednisone 50 mg tablet 50 mg PO DAILY Inflammation 5 days 10/18/24 #5 tabs Allergies Allergy/AdvReac Type Severity Reaction Status Date / Time ketorolac AdvReac Intermediate Nausea Verified 10/18/24 17:46 cyclobenzaprine AdvReac Mild nausea Verified 10/18/24 17:46 (Cyclobenzaprine) ibuprofen AdvReac Mild nausea Verified 10/18/24 17:46 naproxen AdvReac Mild Nausea Verified 10/18/24 17:46 General Stated Complaint: RespSymp BULL: 3 Review of Systems All systems reviewed & are unremarkable except as noted in HPI and below Cardiovascular Cardiovascular: Denies chest pain and Reports dyspnea Respiratory Respiratory: Reports cough and Reports dyspnea Exam Narrative Exam Narrative: Constitutional: Alert and oriented x3. Appears stated age. Normal body habitus. Head: Normocephalic, no trauma. Eyes: Pupils PERRL, Red reflex noted, EOM's intact. Eyelids symmetrical without lesions, discharge, or swelling. ENT: Bilateral TM's WNL, External ear normal to inspection, no mastoid TTP, swelling, or erythema, Nasal turbinates WNL, no nasal discharge. Normal dentition, Posterior pharynx WNL, no exudate. Chest: RRR, Normal S1, S2, distal pulses intact. Resp: Lungs diminished to auscultation bilaterally, no wheezes, rales, or rhonchi. Abdomen: Soft, non-distended, Normoactive bowel sounds all 4 quads. Musculoskeletal: Normal gait, Moves all 4 extremities without difficulty. Skin: No suspicious rashes or lesions. Capillary refill less than 2 sec. Neurologic: Cranial nerves II-XII intact. Alert and oriented x 3. Motor: No deficits noted. Sensory: Intact bilaterally all 4 extremities. Hematologic/Lymphatic: No ecchymosis, no lymphadenopathy. Course Vital Signs Vital signs: Vital Signs Temperature 36.6 C 10/18/24 17:41 Pulse 90 10/18/24 17:41 Respiratory Rate 20 10/18/24 17:41 Blood Pressure 110/73 10/18/24 17:41 Pulse Oximetry 96 10/18/24 17:41 Temperature 36.6 C 10/18/24 17:41 Pulse 90 10/18/24 17:41 Respiratory Rate 20 10/18/24 17:41 Respiratory Effort Normal, Non-Labored 10/18/24 17:51 Respiratory Depth Normal 10/18/24 17:51 Blood Pressure 110/73 10/18/24 17:41 Pulse Oximetry 96 10/18/24 17:41 Oxygen Delivery Method Room Air 10/18/24 17:41 Oxygen Flow Rate 0 10/18/24 17:41 Pain Level 0 10/18/24 17:41 Medical Decision Making 54-year-old male presents to the ER with chief complaint of shortness of breath for the last 3 to 4 days. He reports cold-like symptoms, he is a smoker. He reports that he not take any inhalers or medications at home. He denies productive cough. Denies any fever or chills. Denies any pain. No swelling in his legs. Denies any drugs or alcohol. He reports shortness of breath at rest as well as with activity. Workup ordered including CBC CMP EKG chest x-ray VBG DuoNeb and Solu-Medrol. Fluvid swab ordered. No troponins ordered due to patient not complaining of any chest pain. Patient given Solu-Medrol and a DuoNeb which he reports helped somewhat. No leukocytosis, labs are largely unremarkable, negative COVID flu RSV. Chest x-ray shows a possible early left lower lobe pneumonia. Of note patient is complaining of a possible dog bite to his left anterior forearm which happened approximately a month ago. He reports that he has had a history of MRSA and he has been keeping it clean and has never had antibiotics for it. He does have a lesion noted to his left anterior forearm that has some scales and vesicles over it, some mild surrounding erythema. Will clean the lesion, placed bacitracin here in the emergency department. Discussed x-ray results. Will give doxycycline for the dog bite and possible early pneumonia, will give an albuterol inhaler here, prednisone for 5 days and prescribe mupirocin antibiotic ointment. Discussed home care strict return instructions, verbalized understanding. This text was generated using [employer] system, please disregard any oddities of phrase or misspellings. Medical Records Medical records reviewed: Yes I reviewed the patient's medical records. Imaging Data Radiologic Study: Imaging: X-Ray Radiologist's impression: TECHNIQUE: Imaging protocol: Radiologic exam of the chest. Views: 2 views. COMPARISON: CR XR CHEST 2V PA LATERAL 11/20/2022 10:33 PM FINDINGS: Lungs: Subtle airspace opacification projecting lateral to the left heart border, no good lateral correlate. Pleural spaces: Unremarkable. No pleural effusion. No pneumothorax. Heart/Mediastinum: Unremarkable. No cardiomegaly. Bones/joints: Unremarkable. IMPRESSION: Findings are concerning for early left lower lobe pneumonia, correlate clinically. Thank you for allowing us to participate in the care of your patient. Dictated and Authenticated by: Justin Marie DO Lab Data Lab results reviewed: Yes I reviewed the patient's lab results. Labs: Laboratory Tests Range/Units 10/18/24 10/18/24 18:29 18:55 WBC (4.4-10.8) 10^3/uL 7.72 RBC (4.36-5.78) 10^6/uL 4.54 Hgb (13.5-17.5) g/dL 13.6 Hct (40.0-50.0) % 41.6 MCV (80-95) fL 92 MCH (27.0-33.0) pg 30.0 MCHC (32.0-36.0) % 32.7 RDW (11.8-14.1) % 12.8 Plt Count (130-400) 10^3/uL 258 MPV (8.0-11.0) fL 9.8 Immature Gran % % 0.3 Neutrophils % % 70.9 Lymphocytes % % 19.0 Monocytes % % 6.9 Eosinophils % % 2.1 Basophils % % 0.8 Nucleated RBC % (0.0-0.3) % 0.0 Absolute Neutrophils (1.2-6.7) 10^3/uL 5.48 Absolute Lymphocytes (1.2-3.4) 10^3/uL 1.47 Absolute Monocytes (0.1-0.8) 10^3/uL 0.53 Absolute Eosinophils (0.0-0.7) 10^3/uL 0.16 Absolute Basophils (0.0-0.2) 10^3/uL 0.06 VBG pH (7.31-7.41) 7.39 VBG pCO2 (41-51) mmHg 45 VBG pO2 mmHg 50 VBG HCO3 (23-28) mmol/L 27 VBG Total CO2 (24-29) mmol/L 25 VBG O2 Saturation % 87 VBG Base Excess (-2-3) mmol/L 2 Sodium (136-145) mmol/L 141 Potassium (3.5-5.1) mmol/L 3.8 Chloride (98-107) mmol/L 106 Carbon Dioxide (21.0-32.0) mmol/L 27.8 Anion Gap (3-11) mmol/L 7.2 BUN (7-18) mg/dL 14 Creatinine (0.70-1.30) mg/dL 0.8 Est GFR (CKD-EPI 2020) (mL/min/1.73m2) 106.48 Glucose (74-106) mg/dL 127 H Calcium (8.5-10.1) mg/dL 9.3 Total Bilirubin (0.2-1.0) mg/dL 0.3 AST (15-37) U/L 13 L ALT (16-63) U/L 20 Alkaline Phosphatase (46-116) U/L 80 Total Protein (6.4-8.2) g/dL 7.4 Albumin (3.4-5.0) g/dL 3.0 L COVID-19 Source Nasopharynx SARS-CoV-2 (PCR) (Negative) Negative Influenza Type A (PCR) (Negative) Negative Influenza Type B (PCR) (Negative) Negative RSV (PCR) (Negative) Negative Quality:SDOH Health Related Social Needs: No Data to Display PFSH All Active Problems (Updated 10/18/24 @ 19:49 by Mary Jerome NP) Pneumonia (Acute) COPD (chronic obstructive pulmonary disease) (Chronic) Sinus congestion (Acute) Cough (Acute) Cocaine abuse (Acute) Middle ear effusion (Acute) Tobacco use disorder (Acute) 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) [facility] [place] Ortho 05/13/23 Chronic pain of right ankle (Acute) Pain in inferior right lower extremity (Acute) Pain of left lower extremity (Acute) Painful orthopaedic hardware (Acute) alf prescription opiate use (Chronic) UDS consistently negative, confirmation analysis consistently positive Lumbar radiculopathy (Acute) Sensorineural hearing loss of both ears (Acute) Tinnitus (Acute) Chronic back pain (Acute) Eardrum rupture, left (Acute) Blunt head trauma (Acute) Right leg numbness (Acute) Patellofemoral pain syndrome of left knee (Acute) steroid injection: 05/07/2020 Tobacco abuse (Acute) Lesion of uvula (Acute) history of uvula with squamous atypia. Status post excision. Continues to smoke. Tobacco use (Acute) Xerostomia (Acute) Throat pain (Acute) Post-operative pain (Acute) Wrist pain, right (Acute) Oropharyngeal dysphagia (Acute) Difficulty breathing (Acute) Anxiety (Chronic) Pulmonary emphysema (Acute) Angioedema (Acute) Superficial thrombophlebitis of arm (Acute) Back pain (Acute) Medical History Tobacco dependence, continuous Attention deficit hyperactivity disorder Chronic obstructive lung disease Arthritis DVT (deep venous thrombosis) Surgical History H/O ankle fusion 4 total surgeries 07/09/23 Repair Nonunion Tarsal Bones Right 07/09/23 Arthrodesis, Subtalar Right Repair of inguinal hernia right Endoscopic Carpal Tunnel release Appendectomy Family History Father Personal history of malignant neoplasm Liver CA Diabetes Paternal Uncle Alcohol abuse Maternal Uncle Alcohol abuse Sister Hypertension Other Cancer Social History Smoking/Tobacco Use Status: Current every day Tobacco Type: cigarettes Tobacco: How many years used: 20 Smoking risk assessment performed?: Yes Alcohol Intake: current Alcohol Intake frequency: holidays/special occasions only Alcohol type: other Drug use: Occasionally Substance use type: marijuana Adopted: No Caregiver/Support person: No Foster care: No Household members: none Housing: apartment Number of Children: 1 Do you need help understanding health information?: Often current occupation: Disabled Sexually active: Yes Do you think of yourself as: straight/heterosexual Current gender identity: male What type of physical activity do you participate in: bicycling and additional Details: rides bike in the summer. 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
[2024-10-18] MEDS: methylPREDNISolone SUCC 125 MG VIAL IVP (18:31)
[2024-10-18 18:32] VITALS: PULSE 79; RESP 18; RESP 9; O2SAT 95
[2024-10-18] MEDS: Albuterol/Ipratropium 3 ML UPD VIAL UPD (18:32)
[2024-10-18 18:40] LABS: BE (Venous) 2 mmol/L (-2-3); HCO3 (Venous) 27 mmol/L (23-28); O2 Sat (Venous) 87 %; TCO2 (Venous) 25 mmol/L (24-29); pCO2 (Venous) 45 mmHg (41-51); pH (Venous) 7.39 (7.31-7.41); pO2 (Venous) 50 mmHg
[2024-10-18 18:44] LABS: Abs Immature Grans 0.02 10^3/uL (0.0-0.06); Absolute Basophil Count 0.06 10^3/uL (0.0-0.2); Absolute Eosinophil Count 0.16 10^3/uL (0.0-0.7); Absolute Lymphocyte Count 1.47 10^3/uL (1.2-3.4); Absolute Monocyte Count 0.53 10^3/uL (0.1-0.8); Absolute Neutrophil Count 5.48 10^3/uL (1.2-6.7); Basophils % 0.8 %; Eosinophils % 2.1 %; HCT 41.6 % (40.0-50.0); HGB 13.6 g/dL (13.5-17.5); Immature Grans % 0.3 %; MCHC 32.7 % (32.0-36.0); MCV 92 fL (80-95); MPV 9.8 fL (8.0-11.0); Monocytes % 6.9 %; Neutrophils % 70.9 %; Platelet Count 258 10^3/uL (130-400); RBC 4.54 10^6/uL (4.36-5.78); RDW 12.8 % (11.8-14.1); RDW-SD 42.1 fL; WBC 7.72 10^3/uL (4.4-10.8)
[2024-10-18 18:59] LABS: ALT 20 U/L (16-63); AST 13 U/L (15-37); Alkaline Phosphatase 80 U/L (46-116); Anion Gap 7.2 mmol/L (3-11); BUN 14 mg/dL (7-18); Bilirubin, Total 0.3 mg/dL (0.2-1.0); CO2 27.8 mmol/L (21.0-32.0); CREATININE 0.8 mg/dL (0.70-1.30); Calcium 9.3 mg/dL (8.5-10.1); Chloride 106 mmol/L (98-107); Estimated GFR 106.48 (mL/min/1.73m2); Glucose 127 mg/dL (74-106); Potassium 3.8 mmol/L (3.5-5.1); Sodium 141 mmol/L (136-145); Total Protein 7.4 g/dL (6.4-8.2)
[2024-10-18 19:35] LABS: COVID-19 PCR Negative (Negative); Influenza A PCR Negative (Negative); Influenza B PCR Negative (Negative); RSV PCR Negative (Negative)
[2024-10-18 19:37] LABS: Source Nasopharynx
--- NOTE | 2024-10-18 19:38 | DI.VRAD_ITS ---
PROCEDURE INFORMATION: Exam: XR Chest Exam date and time: 10/18/2024 7:10 PM Age: 54 years old Clinical indication: Shortness of breath TECHNIQUE: Imaging protocol: Radiologic exam of the chest. Views: 2 views. COMPARISON: CR XR CHEST 2V PA LATERAL 11/20/2022 10:33 PM FINDINGS: Lungs: Subtle airspace opacification projecting lateral to the left heart border, no good lateral correlate. Pleural spaces: Unremarkable. No pleural effusion. No pneumothorax. Heart/Mediastinum: Unremarkable. No cardiomegaly. Bones/joints: Unremarkable. IMPRESSION: Findings are concerning for early left lower lobe pneumonia, correlate clinically. Dictated and Authenticated by: Justin Marie MD. Orderin Justus Hernandez MD
[2024-10-18] MEDS: Bacitracin 1 PACKET TP (20:04)
[2024-10-18] MEDS: Doxycycline Hyclate 100 MG CAP PO (20:08)
[2024-10-18] MEDS: Albuterol HFA 8 GM 60 PUFF INH IH (20:11)
[2024-10-18] MEDS: Doxycycline Hyclate 100 MG, 2 CAPS/BTL PO (20:12)
[2024-10-18 20:16] VITALS: BP 111/70; PULSE 80; RESP 18; O2SAT 93
== END 2024-10-18 20:18 | disposition home or self-care (01) ==
LOC: ER 20:06
PROVIDERS: Emergency Provider Registered Nurse Emergency; PCP Family Medicine
DX: J18.9 Pneumonia, unspecified organism (principal); J44.1 Chronic obstructive pulmonary disease with (acute) exacerbation; F17.210 Nicotine dependence, cigarettes, uncomplicated
CPT/HCPCS: 36415; 80053; 82805; 87637; 93005; 94640; 96374; 99284; 71046; 85025; 93010; J2919; J7620

== ENCOUNTER 2025-06-22 12:03 | Emergency (ER) | payer MEDICARE, SELFPAY ==
[2025-06-22 12:05] VITALS: BP 140/79; PULSE 80; RESP 18; TEMP 36.6; O2SAT 93
--- NOTE | 2025-06-22 12:15 | DI.RAD_ITS ---
Exam(s) XR FOOT LT COMPLETE EXAM: XR FOOT LT COMPLETE CLINICAL HISTORY: Heel pain. TECHNIQUE: 2D digital imaging was performed. Three views. COMPARISON: No exams were available for comparison FINDINGS: BONES: No acute fracture is present. No bony destructive lesion is seen. No heel spurs. JOINTS: No dislocation present. Mild degenerative changes of 1st MTP joint. SOFT TISSUE: Normal. IMPRESSION: No acute abnormality. DATA REPOSITORY: RADIATION DOSE DELIVERED:
--- NOTE | 2025-06-22 12:16 | ED.GENADUL_ITS ---
Discharge Plan Disposition Patient Disposition: Home Condition: Stable Discharge Details Clinical Impression: Plantar fasciitis of left foot, Heel pain Primary Care Provider: Delmar Day ED Provider: Mary Jerome Home Meds and New Rx's Prescriptions: Continued albuterol sulfate 90 mcg/actuation HFA aerosol inhaler 2 puff IH QID PRN (Reason: shortness of breath or wheezing) Qty: 8.5 3RF fluticasone propionate 50 mcg/actuation spray,suspension 2 spray intranasal DAILY Qty: 16 0RF Rx Instructions: administer into each nostril epinephrine [EpiPen 2-Yoshi] 0.3 mg/0.3 mL auto-injector 0.3 mg IJ PRN PRN (Reason: anaphylaxis) Qty: 2 5RF topiramate [Topamax] 25 mg tablet 25 mg PO DAILY nicotine (polacrilex) [Nicorette] 4 mg gum 4 mg buccal Q1H PRN acetaminophen 500 mg capsule 1,000 mg PO Q4H PRN Discharge Instructions Instructions: Heel Pain Caused by Plantar Fasciitis (DC), Plantar Fasciitis Exercises Additional Instructions: At this time the x-rays are largely within normal limits. You do have a little bit of arthritis in the first joint of your great toe. I do suspect that this is something called plantar fasciitis which is an inflammation of the fascia along the bottom of your foot. This can cause heel pain. Rest, ice compression and elevation, use the walking boot as needed when ambulatory. He may also freeze a water bottle and roll this along the bottom of your foot. Please take Tylenol with food every 4-6 hours as needed for pain and swelling. Follow up with primary care provider in 3-5 days. Return to ED sooner if any worsening or concerns. Stand Alone Forms: Portal Information Referrals: Delmar Day DO [Primary Care Provider, Medicine] - 1 week Referral Note: ER follow-up, call for an appointment Clinical Impression: Plantar fasciitis of left foot; Heel pain Discharge Data Discharge Date/Time-TO BE ENTERED AT DEPARTURE: 06/22/25 13:10 HPI General Mode of arrival: ambulatory . Date/Time Provider Initiated Documentation: 06/22/25 12:13 . Limitations to Documentation: no limitations . Information obtained by: patient, RN notes reviewed and old records reviewed . HPI Narrative: 54 year old male presents with left heel pain x 2 weeks, no known injury. 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 Does have some pain with palpation to the plantar surface of his foot. No deformity or significant swelling. Denies alcohol use or fever. Related Data Home Medications ?Medication ?Instructions ?Recorded ?Confirmed albuterol sulfate 90 mcg/actuation 2 puff inhalation Q ID PRN 06/01/23 06/22/25 aerosol inhaler shortness of breath or wheez ing #8.5 grams acetaminophen 500 mg capsule 1,000 mg PO Q4H PRN 07/1206/22/25 epinephrine 0.3 mg/0.3 mL 0.3 mg (0.3 mL) IJ PRN PRN 0 01/31/24 06/22/25 injection, auto-injector (EpiPen anaphylaxis ##2 2-Yoshi) fluticasone propionate 50 2 spray intranasal DAILY sin us 05/16/24 06/22/25 mcg/actuation nasal congestion #16 grams spray,suspension nicotine (polacrilex) 4 mg gum 4 mg buccal Q1H PRN 02/0206/22/25 (Nicorette) topiramate 25 mg tablet (Topamax) 25 mg PO DAILY 11/1506/22/25 Previous Rx's ?Medication ?Instructions ?Recorded albuterol sulfate 90 mcg/actuation 2 puff inhalation Q ID PRN 06/01/23 aerosol inhaler shortness of breath or wheez ing #8.5 grams epinephrine 0.3 mg/0.3 mL 0.3 mg (0.3 mL) IJ PRN PRN 0 01/31/24 injection, auto-injector (EpiPen anaphylaxis ##2 2-Yoshi) fluticasone propionate 50 2 spray intranasal DAILY sin us 05/16/24 mcg/actuation nasal congestion #16 grams spray,suspension Allergies Allergy/AdvReac Type Severity Reaction Status Date / Time ketorolac AdvReac Intermediate Nausea Verified 06/22/25 12:10 cyclobenzaprine AdvReac Mild nausea Verified 06/22/25 12:10 (Cyclobenzaprine) ibuprofen AdvReac Mild nausea Verified 06/22/25 12:10 naproxen AdvReac Mild Nausea Verified 06/22/25 12:10 General Stated Complaint: Orthopedic BULL: 3 Review of Systems Musculoskeletal Musculoskeletal: Reports as per HPI and Reports arthralgias Exam Extrem Left lower extremity: foot Details: normal capillary refill, normal to inspection and tenderness Location: of the plantar foot Location: proximally and of the calcaneus Details: with squeeze Ankle/foot/toe images: 2 1. Tenderness with palpation, no erythema, swelling or deformity Course Vital Signs Vital signs: Vital Signs Temperature 36.6 C 06/22/25 12:05 Pulse 80 06/22/25 12:05 Respiratory Rate 18 06/22/25 12:05 Blood Pressure 140/79 06/22/25 12:05 Pulse Oximetry 93 06/22/25 12:05 Temperature 36.6 C 06/22/25 12:05 Temperature Source Oral 06/22/25 12:05 Pulse 80 06/22/25 12:05 Respiratory Rate 18 06/22/25 12:05 Blood Pressure 140/79 06/22/25 12:05 Blood Pressure Position Sitting 06/22/25 12:05 Pulse Oximetry 93 06/22/25 12:05 Oxygen Delivery Method Room Air 06/22/25 12:05 Oxygen Flow Rate 0 06/22/25 12:05 Pain Level 8 06/22/25 12:05 Medical Decision Making 54 year old male presents with left heel pain x 2 weeks, no known injury. 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 Does have some pain with palpation to the plantar surface of his foot. No deformity or significant swelling. Denies alcohol use or fever. Xray ordered and 1 gm Tylenol Diff Dx includes but not limited to plantar fasciitis, occult fracture, sprain, gout, heel spur, arthritis X-ray shows no acute abnormality there is some degenerative changes in the first MTP joint. No acute fracture noted. Will place patient in a walking boot and instruct on RICE procedures Tylenol if needed. This text was generated using [employer] system, please disregard any oddities of phrase or misspellings. 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) [facility] Ortho 05/13/23 Chronic pain of right ankle (Acute) Pain in inferior right lower extremity (Acute) Pain of left lower extremity (Acute) Painful orthopaedic hardware (Acute) 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 Status post excision. Continues to smoke. Tobacco use (Acute) Xerostomia (Acute) Throat pain (Acute) Post-operative pain (Acute) Wrist pain, right (Acute) Oropharyngeal dysphagia (Acute) Difficulty breathing (Acute) Anxiety (Chronic) Pulmonary emphysema (Acute) Angioedema (Acute) Superficial thrombophlebitis of arm (Acute) Back pain (Acute) Medical History Tobacco dependence, continuous Attention deficit hyperactivity disorder Chronic obstructive lung disease Arthritis DVT (deep venous thrombosis) Surgical History H/O ankle fusion 4 total surgeries 07/09/23 Repair Nonunion Tarsal Bones Right 07/09/23 Arthrodesis, Subtalar Right Repair of inguinal hernia right Endoscopic Carpal Tunnel release Appendectomy Family History Father Personal history of malignant neoplasm Liver CA Diabetes Paternal Uncle Alcohol abuse Maternal Uncle Alcohol abuse Sister Hypertension Other Cancer Social History Smoking/Tobacco Use Status: Current every day Tobacco Type: cigarettes Tobacco: How many years used: 20 Smoking risk assessment performed?: Yes Alcohol Intake: current Alcohol Intake frequency: holidays/special occasions only Alcohol type: other Drug use: Occasionally Substance use type: marijuana Adopted: No Caregiver/Support person: No Foster care: No Household members: none Housing: apartment Number of Children: 1 Do you need help understanding health information?: Often current occupation: Disabled Sexually active: Yes Do you think of yourself as: straight/heterosexual Current gender identity: male What type of physical activity do you participate in: bicycling and additional Details: rides bike in the summer. 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
[2025-06-22] MEDS: Acetaminophen 500 MG TAB 1000 MG PO (12:38)
[2025-06-22 13:05] VITALS: BP 136/69; PULSE 76; RESP 20; O2SAT 95
== END 2025-06-22 13:10 | disposition home or self-care (01) ==
PROVIDERS: Emergency Provider Registered Nurse Emergency; PCP Family Medicine
DX: M72.2 Plantar fascial fibromatosis (principal); J44.9 Chronic obstructive pulmonary disease, unspecified; F17.210 Nicotine dependence, cigarettes, uncomplicated; Z86.718 Personal history of other venous thrombosis and embolism
CPT/HCPCS: 99283; 73630